=== PATIENT | female | born 1970 | race Caucasian/White ===

== ENCOUNTER 2020-05-13 11:37 | Emergency (ER) | payer OTHER, SELFPAY ==
[2020-05-13 11:37] VITALS: BP 112/73; PULSE 79; RESP 18; TEMP 36.9; O2SAT 100; BMI 27.3
--- NOTE | 2020-05-13 11:42 | NURSING ---
NO OLD EKGS
[2020-05-13 11:47] VITALS: BP 111/79; PULSE 85; RESP 18; TEMP 36.9; O2SAT 99
--- NOTE | 2020-05-13 11:56 | EKG12_ITS ---
Test Reason : CP Blood Pressure : / mmHG Vent. Rate : 085 BPM Atrial Rate : 085 BPM P-R Int : 132 ms QRS Dur : 072 ms QT Int : 398 ms P-R-T Axes : 033 -04 044 degrees QTc Int : 473 ms Normal sinus rhythm Normal ECG Confirmed by HUBER PABON, LUCY ([id number]), editor managing director MICHAEL SNOW ([id number]) on 05/16/2020 11:24:29 AM Referred By: LAURA Confirmed By:LUCY NGO MD
--- NOTE | 2020-05-13 11:58 | ED.DCSUM_ITS ---
History of Present Illness Chief Complaint: Chest Pain Informant: Patient Narrative: This is a 49-year-old female presenting for the evaluation of chest pain. Patient states her symptoms began out 3 days ago and have been constant. She notes some soreness to the chest and the left arm. She states at times it feels better. She denies any shortness of breath. She states that she has developed some nausea and vomiting this morning as well as diarrhea. states he is feeling well. No fevers. Denies any known cardiac history. She tells me that it seems that she just cannot relax. She is not noting any trauma or work that would have aggravated her chest wall. Past Medical History - Allergies and Home Meds Allergies/Adverse Reactions: Allergies No Known Allergies Allergy (Verified 05/13/20 11:44) Primary Care Physician: Alba Rubi MD [Primary Care Provider] - 1 Week Past Medical History: - - Depression anxiety hypothyroidism Surgical History: noncontributory Lives: Spouse/ Significant Other Smoking Status: Never smoker Drugs: None Review of Systems General: Denies: Chills, Fever, Sweats Eyes: Denies: Visual changes - bilaterally, Diplopia ENT: Denies: Rhinorrhea, Sore throat Cardiovascular: Reports: Chest pain. Denies: Palpitations Respiratory: Denies: Dyspnea, Cough, Dyspnea on exertion Gastrointestinal: Reports: Nausea, Vomiting, Diarrhea. Denies: Abdominal pain, Melena, Hematochezia Genitourinary: Denies: Dysuria, Hematuria, Frequency Musculoskeletal: Denies: Back pain, Extremity Pain Skin: Denies: Rash, Wounds Neurological: Denies: Headache, Weakness, Numbness Physical Exam Vital Signs/Narrative: Vital Signs Temp Pulse Resp BP Pulse Ox 05/13/20 11:47 98.5 F 85 18 111/79 99 05/13/20 11:37 98.5 F 79 18 112/73 100 Inital Vital Signs reviewed: Yes General: Well nourished, Well developed, No Acute Distress Head: Normocephalic, Atraumatic Eyes: Perrl, EOMI ENT: Moist mucous membranes, No rhinorrhea Neck: Supple, Nontender Cardiovascular: Regular rate, Regular rhythm, No murmurs Respiratory: No distress, CTA bilaterally, Chest tenderness Abdomen: Soft, Nontender, Nondistended, Normal bowel sounds Back: Nontender, Normal Inspection Extremities: Nontender, No edema Skin: Normal color, No rash Neurological: Alert, Oriented x3, Cranial nerves II-XII grossly intact, Normal Strength, Normal Sensation Psychological: - - Anxious Diagnostic/Tx/Re-eval Clinical Impression(s) from Imaging Studies Chest X-Ray 05/13/20 12:35 IMPRESSION: No active pulmonary disease. Calcific tendinitis of the right shoulder. Electronically Signed: Colby Zamora MD at 12:48 EST Tel , Service support , Laboratory Last Values WBC 6.8 K/mm3 (4.4-11.0) 05/13/20 11:40 RBC 4.84 M/mm3 (4.2-5.4) 05/13/20 11:40 Hgb 13.7 g/dL (12.0-15.0) 05/13/20 11:40 Hct 42.1 % (37-47) 05/13/20 11:40 MCV 87.0 fL (81-99) 05/13/20 11:40 MCH 28.3 pg (27.0-32.0) 05/13/20 11:40 MCHC 32.5 g/dL (32-36) 05/13/20 11:40 RDW Std Deviation 39.2 fl (35.1-43.9) 05/13/20 11:40 RDW Coeff of Rayne 12.3 % (11.6-14.6) 05/13/20 11:40 Plt Count 381 K/mm3 (150-450) 05/13/20 11:40 MPV 10.6 fl (6.2-12.0) 05/13/20 11:40 Immature Gran % (Auto) 0.300 % (0.0-0.9) 05/13/20 11:40 Neut % (Auto) 63.4 % (47-70) 05/13/20 11:40 Lymph % (Auto) 26.9 % (19-41) 05/13/20 11:40 Bullock % (Auto) 6.6 % (0-10) 05/13/20 11:40 Eos % (Auto) 1.6 % (0-5) 05/13/20 11:40 Baso % (Auto) 1.2 % (0-1) H 05/13/20 11:40 Absolute Neuts (auto) 4.3 X10^3/uL (2.0-7.7) 05/13/20 11:40 Absolute Lymphs (auto) 1.83 X10^3/uL (0.83-4.51) 05/13/20 11:40 Nucleated RBC % 0 % (0-5) 05/13/20 11:40 D-Dimer Quant (PE/DVT) <= 0.27 FEU/ug/m (0.27-0.49) 05/13/20 11:40 Sodium 139 mmol/L (136-145) 05/13/20 11:40 Potassium 4.0 mmol/L (3.5-5.1) 05/13/20 11:40 Chloride 104 mmol/L (98-107) 05/13/20 11:40 Carbon Dioxide 28.0 mmol/L (21.0-32.0) 05/13/20 11:40 Anion Gap 7 (5-15) 05/13/20 11:40 BUN 11 mg/dL (7-18) 05/13/20 11:40 Creatinine 0.72 mg/dL (0.55-1.02) 05/13/20 11:40 Estim Creat Clear Calc 69.75 ml/min 05/13/20 11:40 Est GFR (MDRD) Af Amer 110 mL/min (>60) 05/13/20 11:40 Est GFR (MDRD) Non-Af 91 mL/min (>60) 05/13/20 11:40 BUN/Creatinine Ratio 15.4 RATIO (10-20) 05/13/20 11:40 Glucose 105 mg/dL (74-106) 05/13/20 11:40 Calcium 9.9 mg/dL (8.5-10.1) 05/13/20 11:40 Total Bilirubin 0.30 mg/dL (0.20-1.00) 05/13/20 11:40 AST 15 U/L (15-37) 05/13/20 11:40 ALT 24 U/L (13-56) 05/13/20 11:40 Alkaline Phosphatase 91 U/L (45-117) 05/13/20 11:40 Troponin I < 0.015 ng/mL (<0.045) 05/13/20 11:40 Total Protein 7.8 g/dL (6.4-8.2) 05/13/20 11:40 Albumin 4.1 g/dL (3.2-5.0) 05/13/20 11:40 Globulin 3.7 g/dL (2.2-4.2) 05/13/20 11:40 Albumin/Globulin Ratio 1.1 RATIO (0.9-2.4) 05/13/20 11:40 Lipase 110 U/L (73-393) 05/13/20 11:40 - EKG Initial EKG Interpretation: Sinus Rhythm - EKG demonstrates normal sinus rhythm at a rate of 85 without - Medical Decision Making She received Zofran and Ativan and feels better. Troponin D-dimer negative. I think is more likely this is musculoskeletal chest pain given that the chest is tender. Also probably has a viral gastroenteritis given the vomiting and diarrhea. Her other labs are very reassuring. I will write for Zofran. Imodium for diarrhea. Return if worsening or concerns ED Disposition - Plan for ED Patient: Disposition: Home or Assisted Living Diagnosis: Chest pain, Vomiting and diarrhea, Anxiety Instructions: ED Chest Pain, Noncardiac, ED Vomiting and Diarrhea ... Prescriptions: Ondansetron [Zofran Odt] 4 mg PO Q6H PRN PRN #10 tab PRN Reason: Nausea Prescription Printed Referrals: Alba Rubi MD [Primary Care Provider] - 1 Week
[2020-05-13] MEDS: Ondansetron 4 MG/2 ML Vial IV (12:07)
[2020-05-13] MEDS: LORazepam 2 MG/ML Syringe 0.5 MG IV (12:07)
[2020-05-13 12:18] LABS: Absolute Lymphocyte Count 1.83 X10^3/uL (0.83-4.51); Absolute Neutrophil Count 4.3 X10^3/uL (2.0-7.7); Basophil# 0.08 X10^3/uL; Basophil% 1.2 % (0-1); Eosinophil# 0.11 X10^3/uL; Eosinophils% 1.6 % (0-5); Hematocrit 42.1 % (37-47); Hemoglobin 13.7 g/dL (12.0-15.0); Lymphocyte # 1.83 X10^3/ul (4.0); Lymphocyte % 26.9 % (19-41); Mean Corp Hgb Conc 32.5 g/dL (32-36); Mean Corpuscular Hgb 28.3 pg (27.0-32.0); Mean Platelet Vol. 10.6 fl (6.2-12.0); Monocyte# 0.45 X10^3/uL; Monocyte% 6.6 % (0-10); NRBC Flagged by Analyzer 0 % (0-5); Neutrophil # 4.31 X10^3/uL (2.7-7.7); Neutrophil % 63.4 % (47-70); Platelet Count 381 K/mm3 (150-450); RBC Distribution Width CV 12.3 % (11.6-14.6); RBC Distribution Width SD 39.2 fl (35.1-43.9); Red Blood Count 4.84 M/mm3 (4.2-5.4); White Blood Count 6.8 K/mm3 (4.4-11.0)
[2020-05-13 12:24] LABS: ALB/GLOB Ratio 1.1 RATIO (0.9-2.4); AST(SGOT) 15 U/L (15-37); Alanine Aminotransfer ALT/SGPT 24 U/L (13-56); Albumin, Serum 4.1 g/dL (3.2-5.0); Alkaline Phosphatase 91 U/L (45-117); Anion Gap 7 (5-15); BUN 11 mg/dL (7-18); BUN/Creat Ratio 15.4 RATIO (10-20); Calcium,Total 9.9 mg/dL (8.5-10.1); Chloride 104 mmol/L (98-107); Creatinine, Serum 0.72 mg/dL (0.55-1.02); EST Glomerular Filtration Rate 91 mL/min (>60); Est Glom Filt Rate - Afr Amer 110 mL/min (>60); Estimated Creatinine Clearance 69.75 ml/min; Globulin 3.7 g/dL (2.2-4.2); Glucose 105 mg/dL (74-106); Lipase 110 U/L (73-393); Protein, Total 7.8 g/dL (6.4-8.2); Sodium Level 139 mmol/L (136-145)
[2020-05-13 12:27] LABS: D-Dimer Quantitative (DVT/PE) <= 0.27 FEU/ug/m (0.27-0.49)
--- NOTE | 2020-05-13 12:35 | RAD_ITS ---
STUDY: X-RAY CHEST REASON FOR EXAM: Female, 49 years old. Left chest pain and shortness of breath. TECHNIQUE: Single AP portable view of the chest. COMPARISON: None. FINDINGS: The lungs are clear and expanded. There is no demonstrated pleural abnormality. Normal size heart. Normal mediastinum and victor manuel. Normal visualized pulmonary arteries. Normal visualized aortic arch and descending thoracic aorta. Normal visualized thoracic spine. Calcifications adjacent to the right humeral head consistent with calcific tendinitis. There is no demonstrated abnormality of the visualized soft tissue structures of the upper abdomen. RAD/Chest 1 View (Portable) IMPRESSION: No active pulmonary disease. Calcific tendinitis of the right shoulder. Electronically Signed: Colby Zamora MD at 12:48 EST Tel , Service support ,
[2020-05-13 12:37] VITALS: BP 109/70; PULSE 90; RESP 21; O2SAT 97
[2020-05-13 13:00] VITALS: BP 104/63; PULSE 67; RESP 19; O2SAT 96
[2020-05-13 13:33] VITALS: BP 101/66; PULSE 81; RESP 18; O2SAT 98
== END 2020-05-13 13:34 | disposition home or self-care (01) ==
PROVIDERS: Emergency Provider Emergency Medicine; PCP Internal Medicine
DX: R07.9 Chest pain, unspecified (principal); R11.10 Vomiting, unspecified; R19.7 Diarrhea, unspecified; F41.9 Anxiety disorder, unspecified; E03.9 Hypothyroidism, unspecified; F32.9 Major depressive disorder, single episode, unspecified; Z79.899 Other long term (current) drug therapy
CPT/HCPCS: 71045; 80053; 83690; 84484; 85025; 85379; 87426; 93005; 96374; 96375; 99284; A4216; J2405

== ENCOUNTER 2020-11-13 09:56 | Outpatient (RCR) | payer OTHER, SELFPAY ==
--- NOTE | 2020-11-13 09:00 | BH.SGPN.GN ---
Behaviors/Verbalizations/Mental Status: [] Eye contact is good. Motor activity is restless. Appearance is casual. Speech is Appropriate. Mood is anxious. Affect is congruent. Thoughts are linear and logical. No evidence of psychosis. Reviewed daily check in sheet and no reports of suicidal ideations or intent. Client Response/Progress/Benefit: [] Pt participated in group when prompted. Attentive. Daily symptom tracker notes 07/26 for anxiety and depression. Emotion for today is anxious and depressed. Shared that today is her first day in IOP. Her goal for the program is to decrease the impact of her depression and anxiety. She wants to feel better when she goes back to work. Group provided feedback and welcomed her to [facility] which was beneficial. No progress noted as this was her first session. Plan is to continue in [facility] to prevention decompensation, stabilize mood, and improve functioning so she can return to work. Narrative Note: []
--- NOTE | 2020-11-13 10:10 | BH.SGPN.GN ---
Behaviors/Verbalizations/Mental Status: []Client alert and oriented, casually dressed and groomed. Eye contact fair. Motor activity appropriate. Speech within normal limits. Affect constricted, mood anxious. Thoughts linear, logical, no signs of hallucinations or delusions. Client Response/Progress/Benefit: []Client receptive to session, participating throughout. Provided input as the group brainstormed the positive and negative aspects of stress on physical and mental health. Group did well to identify the benefits of stress as well as the impact of distress on performance and mental health. Client identified top stressors such as feeling overwhelmed at work, trying to keep house clean, and kids leaving for college. Client reports her stress jar is full and when it overflows client typically shuts down and sleeps. First day in IOP. Recommend to continue IOP tx to promote use of healthy coping skills, improve daily functioning and prevent decompensation.
--- NOTE | 2020-11-13 10:37 | BH.COMM ---
Communication Note - Communication with Client Communication Note: Met with pt to complete initial paperwork. No significant changes since pre-admission screening. Denies any current or history of suicidal ideation, denies any plan or intent. Denies any homicidal ideation, plan, or intent. Reports her family as protective factors. Completed [place] Suicide Screening with low risk. Future-oriented.
--- NOTE | 2020-11-13 10:39 | BH.PSA_ITS ---
Source of Information - Presenting Problems/Circumstances Problems, Referral Source, Mental Status, Client: The patient is a 50-year-old female with a history of depression, anxiety, and narcolepsy who was referred to the [facility] behavioral health IOP program by her outpatient psychiatrist secondary to worsening symptoms. Pt reports her symptoms began worsening in April 2020 and have continued decompensating for the past few months. Denies any trigger for increased symptoms. Psychiatric Presentation - Psych Issues & Need for Admission Psychiatric Issues:: anxiety, panic, depression Past Psychiatric History - Treatment Hx Treatment History: She has a psychiatrist for about 1 year now and she had a psychiatrist before that for over 10 years who recently retired and sent records to the new doctor. She also has a counselor at [facility]. She was first depressed after her second child over 20 years ago around age 30. She has had depression off and on since then. Her first psych meds were at age 34 for depression. First hospitalization:: denies Most recent hospitalization:: denies Medication Trials:: Yes - Prozac; Geodon; Xyrem; modafinil; dexmethylphenidate; pramipexole ECT Therapy:: No Age of first mental health symptoms: 18 due to post- depression Describe (age, circumstance, etc) any past hospitalizations: denies Current providers for mental health treatment (counselor, psychiatrist, business case analyst, etc.): Pt has a psychiatrist and outpatient counselor through the [facility] who she meets with regularly Development & Family of Origin - Family Who currently lives in your home?: Lives at home with her . She has two daughters who also live in the home during breaks from college Describe family composition:: Pt is the middle of three children. She has a sister 3 years older and a sister 3 years younger. She is closer to her younger sister. Pt's parents are . Pt has been twice. Once for 2 years when she was 18. again at 25 and has been 24 years - Family History Family Hx of Psychiatric or AOD Problems: Her mother has depression and anxiety but these have not been treated. No other mental health issues in the family. No suicides in the family. No substance issues in the family. Ethnicity - Culture Do you identify yourself with any particular cultural, ethnic background, or community?: No - Sexuality Sexual Orientation: Heterosexual Spirituality - Rastafari Do you currently identify with any organized tenriism?: Sikhism - Beliefs Is there a particular form of support from this community you can use for your recovery?: Yes Mental Status - Memory Recent Memory: Fair Remote Memory: Fair - Concentration Concentration: Fair - Eye Contact Eye Contact: Good - Speech Speech: Congruent, Soft - Thought Process Thought Process: Logical Insight: Fair Judgment: Fair Behavior: Anxious - Orientation Orientation: Time, Person, Place, Situation - Appearance Appearance: Neat/clean - Mood Mood: Anxious, Depressed - Affect Affect: Constricted Suicide Assessment - Suicidal Ideation Have you ever felt like hurting yourself?: No Were you using ETOH/drugs at the time?: No Suicidal Intentional Rating Scale (SIRS): No suicidal thoughts (past or present) Physician Notification: If Active suicidal thoughts/Will not contract for safety is checked, contact physician and document in the Physician Notification section below. Violent Behavior/Abuse History - Homicidal Ideation Do you have any homicidal thoughts? If so, explain:: No Is there a known potential victim? If yes, who:: No - Abuse Have you ever been abused?: No - Safety Do you ever feel threatened in your home? If yes, describe:: No Adult Social History - Age 16 to Present Describe your current support system:: Reports her parents and sister are good supports. Reports she has several coworkers she is close to and who are supportive Substance Use - Substance Substance Use Type: None Leisure/Social Activities - Interests What do you enjoy or might be interested in learning about?: Pt reports she does not have many hobbies and would be interested in finding activities she enjoys. 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 If yes, describe:: No - Court Orders Have you had any past court orders for psychiatric treatment?: No Do you have a present court order for psychiatric treatment?: No Problem Checklist - Current Problem Areas Problem List: Depressed mood/sad, Anxiety, Sleep problems, Pertinent health issues - narcolepsy Discharge Planning Needs - Anticipated Follow-Up Mental Health Center (Name/Phone Number):: [facility] psychiatry and outpatient counseling Family and Caregiver Contacts:: Release of Information Signed:: Yes Diagnoses - Diagnoses Diagnosis #1:: Major depressive disorder, recurrent, severe without psychosis Diagnosis #2:: Generalized anxiety disorder Diagnosis #3:: Narcolepsy Interpretive Summary - Interpretive Summary Interpretive Summary: The patient is a 50-year-old female with a history of depression, anxiety, and narcolepsy who was referred to the [facility] behavioral health IOP program by her outpatient psychiatrist secondary to worsening symptoms. Pt reports her symptoms began worsening in April 2020 and have continued decompensating for the past few months. Denies any trigger for increased symptoms. Pt reports symptoms have resulted in taking time off work, increased isolation, and limited ability to complete daily responsibilities. Reports having a hard time accomplishing her activities of daily living and feels overwhelmed by even simple tasks. Shared she ends up sleeping or ?laying around? for much of the day which results in increased guilt, rumination about what she needs to do, and increased negative thinking. Reports decreased ability to function at work resulting in taking FMLA beginning 1 week ago. Recommended ECT and TMS by outpatient provider, however pt declined both. Endorses feeling ?down? and sad, lack of energy and motivation, poor concentration, fatigue, loss of enjoyment in activities, poor appetite, loneliness and isolation. Additionally, reports increased rumination, easily becoming overwhelmed, guilt about not being at work, and daily panic attacks. Denies any SI/HI, plan, or intent. Denies self-harm, hallucinations, or delusions. Reports her parents and sister are supportive but that her is not as he does not ?understand? mental health. Treatment Plan Recommendations - Recommendations Guidelines: Special needs identified to be included in the development of an individualized treatment plan regarding past psychiatric history and treatment, developmental events, family relationships/events/culture, past and/or current educational, occupational, social, and residential experience, and legal status. Recommendations:: The patient will start the IOP program at [facility] as the structure, support, education, and group therapy will hopefully prevent worsening of the patient's symptoms which might require hospitalization.
--- NOTE | 2020-11-13 10:39 | BH.MTP ---
[facility] - Patient Information Program Physician:: Dr. Sindhu Rowley Primary Therapist:: KAYDEN Hernandez - Psychiatric Diagnoses Psychiatric Diagnoses:: 1. Major depressive disorder, recurrent, severe without psychosis. 2. Generalized anxiety disorder. 3. Narcolepsy Diagnosis Code(s):: F 33.2 - Estimated LOS Estimated LOS (in weeks):: 6 Problem/Goal #1 - Problem/Goal #1 Stated Goal:: Client will reduce depressive symptoms, anhedonia, low motivation, sadness, and low energy due to Major Depressive Disorder through Intensive Outpatient Program. Description of Barriers: Negative and distorted thoughts, unrealistic expectations, low motivation, limited supports, and limited insight could all be barriers to treatment. Functional Impact: The patient is a 50-year-old female with a history of depression, anxiety, and narcolepsy who was referred to the [facility] behavioral health IOP program by her outpatient psychiatrist secondary to worsening symptoms. Pt reports her symptoms began worsening in April 2020 and have continued decompensating for the past few months. Denies any trigger for increased symptoms. Pt reports symptoms have resulted in taking time off work, increased isolation, and limited ability to complete daily responsibilities. Reports having a hard time accomplishing her activities of daily living and feels overwhelmed by even simple tasks. Shared she ends up sleeping or ?laying around? for much of the day which results in increased guilt, rumination about what she needs to do, and increased negative thinking. Reports decreased ability to function at work resulting in taking FMLA beginning 1 week ago. Recommended ECT and TMS by outpatient provider, however pt declined both. Endorses feeling ?down? and sad, lack of energy and motivation, poor concentration, fatigue, loss of enjoyment in activities, poor appetite, loneliness and isolation. Additionally, reports increased rumination, easily becoming overwhelmed, guilt about not being at work, and daily panic attacks. Denies any SI/HI, plan, or intent. Denies self-harm, hallucinations, or delusions. Reports her parents and sister are supportive but that her is not as he does not ?understand? mental health. Goal Relevant Strengths/Supports: intelligent, familiar with mental health tx, willing to learn and try new treatment skills. - Objectives Objective #1 Stated Objective: Client will reduce isolation and increase engagement in activities she enjoys by engaging in at least one social activity per week. Interventions: Therapist will help client explore activities enjoys engaging in, explore barriers to engaging in these activities, and help connect client to those activities. Will provide psychoeducation on skills to improve engagement such as behavior activation, thought challenging, and opposite action. Discharge Criteria: Client will successfully report reduced isolation and increased engagement in at least one additional social activity per week. Target Date: 12/22/20 Review Date: 12/08/20 Objective #2 Stated Objective: Pt will decrease depressive symptoms AEB pt?s score on the DSM 5 cross-cutting measure and improve pt?s daily functioning. Interventions: Through groups and individual therapy, pt will be provided with education on healthy coping skills, cognitive distortions, mistaken beliefs, and identifying and combating negative self-talk. Therapist will assist pt with getting back into the activities she once enjoyed as well as increasing healthy coping strategies. Discharge Criteria: Pt will have met this goal when pt?s score on the DSM 5 cross cutting measure for depression has been decreased and per pt?s report daily functioning has improved Target Date: 12/22/20 Review Date: 12/08/20 Problem/Goal #2 - Problem/Goal #2 Stated Goal:: Stabilize anxiety levels and reduce racing thoughts which reinforce anxiety and panic, while increasing ability to function on daily basis. Description of Barriers: Negative and distorted thoughts, unrealistic expectations, low motivation, limited supports, and limited insight could all be barriers to treatment. Functional Impact: The patient is a 50-year-old female with a history of depression, anxiety, and narcolepsy who was referred to the [facility] behavioral health IOP program by her outpatient psychiatrist secondary to worsening symptoms. Pt reports her symptoms began worsening in April 2020 and have continued decompensating for the past few months. Denies any trigger for increased symptoms. Pt reports symptoms have resulted in taking time off work, increased isolation, and limited ability to complete daily responsibilities. Reports having a hard time accomplishing her activities of daily living and feels overwhelmed by even simple tasks. Shared she ends up sleeping or ?laying around? for much of the day which results in increased guilt, rumination about what she needs to do, and increased negative thinking. Reports decreased ability to function at work resulting in taking FMLA beginning 1 week ago. Recommended ECT and TMS by outpatient provider, however pt declined both. Endorses feeling ?down? and sad, lack of energy and motivation, poor concentration, fatigue, loss of enjoyment in activities, poor appetite, loneliness and isolation. Additionally, reports increased rumination, easily becoming overwhelmed, guilt about not being at work, and daily panic attacks. Denies any SI/HI, plan, or intent. Denies self-harm, hallucinations, or delusions. Reports her parents and sister are supportive but that her is not as he does not ?understand? mental health. Goal Relevant Strengths/Supports: intelligent, familiar with mental health tx, willing to learn and try new treatment skills. - Objectives Objective #1 Stated Objective: Client will learn and implement 2-3 calming skills to reduce overall anxiety and manage anxiety symptoms. Interventions: Therapist will teach client calming/relaxation skills and assign client homework which practices relaxation skills daily. Discharge Criteria: Client will have achieved this goal when can verbalize at least 2 calming skills and implement those skills successfully. Target Date: 12/22/20 Review Date: 12/08/20 Objective #2 Stated Objective: Pt will decrease anxious symptoms AEB pt?s score on the DSM 5 cross-cutting measure improve pt?s daily functioning. Interventions: Through groups and individual therapy, pt will be provided education about anxiety?s impact on body and common physiological reaction to anxiety. Therapist will teach pt appropriate breathing techniques and build healthy coping skills to manage daily anxieties. Aid client in identifying and challenging distorted thoughts that cause rumination and increased anxiety. Discharge Criteria: Pt will have met this goal when pt?s score on the DSM 5 cross cutting measure for anxiety has been decreased and per pt?s report daily functioning has improved. Target Date: 12/22/20 Review Date: 12/08/20
--- NOTE | 2020-11-13 11:15 | BH.SGPN.GN ---
Behaviors/Verbalizations/Mental Status: []Client alert and oriented, neat and casually dressed and groomed. Eye contact fair to good. Motor activity appropriate. Speech within normal limits. Affect congruent, mood anxious and depressed. Thoughts linear, logical, no signs of hallucinations or delusions. Client Response/Progress/Benefit: []Client first day in IOP tx, did well to remain engaged in session AEB listening attentively to others, as well as nodding and taking notes throughout discussion. Provided some input when prompted. Client was an active participant in challenge activity and did well to help group with [id number] problem solving. Client listened to other participants? ideas and communicated with the group throughout. Able to make connections between activity and stress management skills in daily life. Client remained attentive during discussion about the 4 A's of managing stress and nodded in connection with the various benefits of each. Shared wanting to work on the skill of adapting to improve her mindset and help her to begin moving forward with mental health treatment in a more active way. Client seemed to benefit from increased awareness of the impact of stress on mental health and increasing repertoire of stress management strategies. Will continue IOP tx to prevent decompensation, promote mood stability, as well as improve application of healthy coping skills. Narrative Note: []
--- NOTE | 2020-11-14 09:05 | BH.SGPN.GN ---
Behaviors/Verbalizations/Mental Status: [] Eye contact is good. Motor activity is appropriate. Appearance is casual. Speech is Appropriate. Mood is depressed/anxious. Affect is congruent. Thoughts are linear and logical. No evidence of psychosis. Reviewed daily check in sheet and no reports of suicidal ideations or intent. Client Response/Progress/Benefit: [] Pt participated when prompted. Attentive. Daily symptom tracker notes 07/26 for anxiety and depression. Emotions for today is gloomy. Continues to report significant depression, lack of motivation, and desire to lay down all day. Seeks reassurance from peers that mood will get better stating I don't think I will every feel better when peers provided positive feedback and support. Limited support reported. Isolating all day. Reports feeling very scared that depression will continue to control her life. Limited progress noted. Benefited from group support and encouragement. Will continue in IOP to maintain safety, prevent decompensation, and to improve functioning to return to work. Narrative Note: []
--- NOTE | 2020-11-14 10:10 | BH.SGPN.GN ---
Behaviors/Verbalizations/Mental Status: []Client alert and oriented, neatly dressed and groomed. Eye contact good. Motor activity appropriate. Speech within normal limits. Affect constricted, mood anxious and dysthymic. Thoughts linear, logical, no signs of hallucinations or delusions Client Response/Progress/Benefit: []Pt was an attentive participant and provided input during the activity. Attentive during psychoeducation and taking notes. Reflected connecting with topic of personal pitfalls and how they can impede mental health treatment progress. Pt and peers also discussed reasons why overcoming pitfalls is so challenging. During experiential activity pt along with peers identified several pitfalls from the activity that are also associated with mental health which included: lack of awareness, poor communication, wanting to give up, and emotional reactivity. Pt expressed ?it?s hard to know what to communicate? during the activity. Pt also expressed anxiety, but pt did well to stay present. Benefited from group by increasing awareness of pitfalls which can impact mental health. Pt will continue in IOP tx to prevent decompensation, improve overall functioning, and gain healthy support. Narrative Note: []
--- NOTE | 2020-11-14 11:10 | BH.SGPN.GN ---
Behaviors/Verbalizations/Mental Status: []Client alert and oriented, neat and casually dressed and groomed. Eye contact good. Motor activity appropriate. Speech within normal limits. Affect congruent, mood anxious and depressed. Thoughts linear, logical, no signs of hallucinations or delusions. Client Response/Progress/Benefit: []Client receptive of session, engaged throughout AEB client actively participating in challenge activity, as well as listening to discussion. Attentive throughout processing portions of session and expressed connecting to various pitfalls discussed by fellow participants. Client expressed feeling overwhelmed by reflecting on her own personal pitfalls as she has never taken time to look more closely at what her own barriers may be. Was receptive of and appeared to benefit from group support and encouragement. Group discussed different coping skills to help manage or prevent from falling into pitfalls. Client identified wanting to work on improving her mental health understanding. Appeared to benefit from identifying personal pitfalls and strategies to overcome these pitfalls. Will continue IOP tx to prevent decompensation, improve consistent application of healthy coping skills, and further promote mood stability. Narrative Note: []
--- NOTE | 2020-11-15 09:05 | BH.SGPN.GN ---
Behaviors/Verbalizations/Mental Status: [] Pt eye contact fair, casually dressed, motor activity restless, speech normal rate and tone, mood anxious, constricted affect, thoughts linear and intact, no evidence of delusions or hallucinations. Reviewed client?s symptom tracker, no signs of suicidal ideation, plan, or intent as of today. Client Response/Progress/Benefit: []Pt responded well to session AEB by listening to others and sharing thoughts and feelings. Pt stated she is feeling sluggish everyday. Pt stated she was unable to accomplish her goal yesterday of getting one load of laundry done. Pt reported she got home and sat down to relax. Pt stated she ended up sitting down the rest of the day relaxing instead of getting anything accomplished. Pt seemed to benefit from support from peers and normalization that the first week in IOP can be exhausting. Pt to continue IOP to decrease anxiety, improve daily functioning and prevent decompensation.
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
--- NOTE | 2020-11-15 11:20 | BH.SGPN.GN ---
Behaviors/Verbalizations/Mental Status: []Client alert and oriented, neatly dressed and groomed. Eye contact fair. Motor activity appropriate. Speech within normal limits. Affect constricted, mood dysthymic and anxious. Thoughts linear, logical, no signs of hallucinations or delusions. Client Response/Progress/Benefit: []Pt was engaged throughout AEB participating in discussion and taking notes. Pt was shaking during the activity, but provided feedback and stayed in the activity despite being anxious. Contributed as group brainstormed healthy coping skills for better managing anger which included: deep breathing, counting, exercise, DDD, and taking walks. Pt also gained awareness of costs of unmanaged anger. Pt appeared to benefit from identifying different techniques to manage anger as well as gaining awareness of the costs of anger. Pt selected DDD and STOPP to better manage anger. Will continue IOP tx to prevent decompensation, learn healthy coping skills, and improve daily functioning. Narrative Note: []
[2020-11-15 11:41] VITALS: BP 128/79; PULSE 78
--- NOTE | 2020-11-15 12:24 | BH.PSY.EVA_ITS ---
Psychiatric Evaluation Initial Evaluation Initial Evaluation: Chief Complaint: [] I want to lay around and doing nothing. History of Present Illness: [] The patient is a 50-year-old female with a history of depression, anxiety and narcolepsy who was referred to the [facility] behavioral health IOP program by her outpatient psychiatrist secondary to worsening symptoms. Her symptoms began in April 2020 and she has been decompensating even further for the past few months. She is not aware of any trigger for the symptoms. She currently lives with her in a house and her 21 and 19-year-old daughters were living there but recently her going back to college and now. She has been for 24 years and describes her marriage as okay. She states that her is not very supportive as he does not understand what is wrong with her. Patient is having a hard time accomplishing her activities of daily living and feels overwhelmed by even simple tasks. She has a lot of negative ruminating and anxious thinking. She is currently on FMLA from her job of 30 years at the [employer]. She last worked 1 week ago. Her doctor has recommended and given her the option of trying ECT and TMS but the patient has refused these. For primary support she has her parents and her sister. She endorses feeling down and sad. She denies hopelessness, and worthlessness. She feels some guilt that she is not doing well and is unable to work. She denies any history of self-harm. She has very low motivation and has been isolating herself. She is not enjoying anything she does. Her appetite is decreased and her weight has may be lost a few pounds. She wants to sleep all the time and she sometimes naps all day and then sleeps all night also. Her energy level is low during the day and her concentration is decreased. She denies thoughts of , thoughts of self-harm, suicidal ideation, plan for suicide, homicidal ideation, hallucinations, delusions or symptoms of lise. She is a worrier by nature and she is having about 2 panic attacks a day lately. She denies any OCD, eating disorder, trauma or PTSD. She has had a sleep study and has a neurologist who treats her narcolepsy. Current Psychiatric Medications: [] Prozac 100 mg daily (dose increased 2 weeks ago); Geodon 20 mg p.o. daily (she is weaning off this now by her outpatient psychiatrist); for narcolepsy the patient is on: Xyrem 500 mg nightly; modafinil 200 mg every morning; dexmethylphenidate 10 mg p.o. 4 times daily. For restless leg syndrome the patient is on pramipexole 0.125 mg p.o. nightly Past Psychiatric History: [] The patient has no prior psychiatric admissions. No suicide attempts ever. She has a psychiatrist for about 1 year now and she had a psychiatrist before that for over 10 years who recently retired and sent records to the new doctor. She also has a counselor at [facility]. She was first depressed after her second child over 20 years ago around age 30. She has had depression off and on since then. Her first psych meds were at age 34 for depression. She has never had ECT or TMS. Her past mental medications include a lot but she only remembers Zoloft. She says there are many others and her outpatient psychiatrist is aware of these. She has had counseling in the past off and on and it has helped her sometimes but not always. Substance Use History: [] No marijuana use. Non-smoker. No vaping. No drugs. No alcohol use. No rehab ever. Allergies: [] No known allergies Medications: [] Levothyroxine, vitamin C, multivitamin plus psych meds as dictated above. Past Medical History: [] Hypothyroidism, restless leg syndrome, narcolepsy. She had a bilateral tubal ligation years ago but no other surgeries. She has been postmenopausal for 2 years now and has not had any bleeding recently. She is a 2 para 2 Ab0 female who had 2 spontaneous vaginal deliveries and has 2 living daughters. Family Psychiatric History: [] Mother is 75 and father is 78 years old and they are healthy except father has high blood pressure. Her mother has depression and anxiety but these have not been treated. No other mental health issues in the family. No suicides in the family. No substance issues in the family. Personal/Social History: [] She was born and raised in [place] and describes her childhood as my parents were loving but not demonstrative. She denies any physical, verbal or sexual abuse ever. She has 1 sister 3 years older and 1 sister 3 years younger and she is close to her younger sister. School was hard for her and she had to work hard but she graduated high school. She went to college and got a BA in social work. She got for the first time at age 18 and the marriage only lasted 2 years. There was no abuse in the marriage and no children. The patient got for the second time at age 25 and this marriage has lasted 24 years. The patient states that he does not understand what I am going through and she feels he is not supportive. There is no abuse in the marriage. Her is 56 years old and works full-time and this is his first marriage. She has 2 daughters who recently left for college and are ages 19 and 21. Legal History: [] No arrests. No snf. No DUIs. 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 Review of Systems: [] Negative except for sleepiness and fatigue due to narcolepsy and occasional restless leg symptoms. Vital Signs: [] Reviewed in nurses notes. Mental Status Examination: [] The patient is a 50-year-old female who is normal for stated age and is seen wearing a mask due to the pandemic. She is casually dressed and groomed with good hygiene. She has no psychomotor agitation or retardation. She is cooperative during the interview. Eye contact is good to fair and speech is normal rate and rhythm and fluent with no pressure. Mood is depressed. Affect is constricted. Thought process is goal-directed and organized. Thought content: There is no evidence of passive thoughts of , suicidal ideation, plan for suicide, homicidal ideation, hallucinations or delusions. The patient is concerned and preoccupied with the fact that she just wants to lay around and sleep. Reality testing is intact. Intelligence is average. Judgment is intact. Insight: Limited. Diagnoses: [] 1. Major depressive disorder, recurrent, severe without psychosis 2. Generalized anxiety disorder 3. Narcolepsy 4. Restless leg syndrome 5. Primary support (marital) issues and work issues Plan: [] The patient will start the IOP program at [facility] as the structure, support, education, and group therapy will hopefully prevent worsening of the patient's symptoms which might require hospitalization. She felt safe during the interview and if it anytime she does not feel safe she will let us know or go to the emergency room. The risk, options, possible complications and side effects of the medications were discussed with the patient and she understands and accepts these. The patient saw her outpatient psychiatrist 2 weeks ago and sees them once a month. No medication changes were made today. The patient is encouraged to try to exercise by walking because she used to enjoy walking her dog but does not anymore. The patient agrees to try to go for very short walks at first and slowly increase her activity level if possible. She will continue to follow-up with her outpatient providers and I will see the patient in follow-up in 1 to 2 weeks.
--- NOTE | 2020-11-15 12:37 | BH.DR.ITP ---
Initial Treatment Plan Patient Information Visit Information: ADMISSION DATE: EXPECTED LOS: 4-6 weeks Problems/Symptoms Problem #1:: Depression Symptom:: Sadness, guilt, low motivation, anhedonia, decreased appetite, hypersomnia, low energy, decreased concentration Problem #2:: Anxiety Symptom:: Worry, rumination, panic attacks
--- NOTE | 2020-11-21 09:00 | BH.SGPN.GN ---
This psychotherapy group was provided via telehealth using two-way, real-time interactive telecommunication technology between the clients and the provider. The interactive telecommunication technology included audio and video. The client was offered telemedicine as an option for care delivery during the COVID-19 pandemic and consented to this option. Client location: [place] Provider located at [facility] Behaviors/Verbalizations/Mental Status: []Client alert and oriented, casually dressed and groomed. Eye contact good. Motor activity appropriate. Speech within normal limits. Affect flat, mood depressed. Thoughts linear, logical, no signs of hallucinations or delusions. Reviewed client?s symptom tracker, no risk for suicidal ideation, plan, or intent as of 11/21/20 Client Response/Progress/Benefit: []Client responded well to session, using telehealth today due to client's recent COVID diagnosis. Client states she is currently feeling not hopeful as client shared I had a plan to get my mental health on track and COVID threw a wrench in my plan. Client shared because of her fatigue, lack of energy, and lack of motivation for being sick, client is feeling more depressed. Group provided emotional support and therapist encouraged client to combat distortions that could reinforce depressive symptoms. Client struggled to identify any mental health wins, but eventually acknowledged she showered and changed her clothes today which took a lot of mental and physical energy. Appeared to benefit from group support and thought challenging. Will continue IOP tx to prevent decompensation, improve functioning, and combat distorted thought patterns. Narrative Note: []
--- NOTE | 2020-11-21 10:10 | BH.SGPN.GN ---
Behaviors/Verbalizations/Mental Status: [] Eye contact is good. Motor activity is appropriate. Appearance is casual. Speech is Appropriate. Mood is depressed. Affect is flat.. Thoughts are linear and logical. No evidence of psychosis. Client Response/Progress/Benefit: [] Pt participated at times during group discussions. Attentive during psychoeducation on communication styles (Passive, Passive-Aggressive, Aggressive, and Assertive) and benefits/disadvantages to each style. Along with peers pt participated in providing insight into the benefits to effective communication on mental health which included; helps us get needs met, resolves problems, improves relationships, increases clarity, clears ups expectations, decreases stress, and increases productivity. Pt along with peers able to identify ways that communication can be misinterpreted through tone, texting, body language and assumptions. Pt identified her most frequently used communication style as passive-aggressive. Benefited from increased awareness of different communication styles and the importance of communicating effectively to improve mental wellness. Will continue in IOP to prevent decompensation, increase healthy coping, and improve functioning to return to work. Narrative Note: []
--- NOTE | 2020-11-21 11:15 | BH.SGPN.GN ---
This psychotherapy group was provided via telehealth using two-way, real-time interactive telecommunication technology between the patients and the provider. The interactive telecommunication technology included audio and video. The patient was offered telemedicine as an option for care delivery during the COVID-19 pandemic and consented to this option. Patient location: [place] Provider located at [facility] Behaviors/Verbalizations/Mental Status: []Client alert and oriented, casually dressed and appropriately groomed. Eye contact good. Motor activity appropriate. Speech WNL. Affect congruent, mood depressed and anxious. Thoughts linear, logical, no signs of hallucinations or delusions. Client Response/Progress/Benefit: []Client responded well to session AEB listening attentively to others, taking notes, and providing input during group discussion. Client contributed increased input throughout session than she has in prior groups. Identified the importance of reminding yourself of the goal for what you are trying to communicate when entering an important or difficult conversation. Attentive during psychoeducation on interpersonal DBT skill NICK and client selected a communication skill to practice. Client stated that she struggles with being assertive in her communication and would like to work on developing more assertive communication in the workplace. Client selected wanting to practice asserting her needs more but is anxious about taking steps in doing so. Responded well to group support and encouragement. Client seemed to benefit from increasing awareness of healthy strategies to improve communication. Will continue IOP tx to maintain gains, increase healthy coping and begin breaking maintenance cycles, as well as prevent decompensation. Narrative Note: []
== END 2020-11-21 23:59 ==
LOC: BHIOP 09:56
PROVIDERS: PCP Internal Medicine; Visit Provider Psychiatry & Neurology Psychiatry
DX: F33.2 Major depressive disorder, recurrent severe without psychotic features (principal); F41.1 Generalized anxiety disorder; G47.419 Narcolepsy without cataplexy; G25.81 Restless legs syndrome; Z79.899 Other long term (current) drug therapy; E03.9 Hypothyroidism, unspecified; Z78.0 Asymptomatic menopausal state
CPT/HCPCS: S9480; 90832; 90853

== ENCOUNTER 2020-11-22 08:24 | Outpatient (RCR) | payer OTHER, SELFPAY ==
[2020-11-22 00:45] VITALS: BP 128/79; PULSE 78
--- NOTE | 2020-11-22 10:10 | BH.SGPN.GN ---
Behaviors/Verbalizations/Mental Status: [] Eye contact is good. Motor activity is appropriate. Appearance is discheveld. Speech is Appropriate. Mood is anxious. Affect is congruent. Thoughts are linear and logical. No evidence of psychosis. Client Response/Progress/Benefit: [] Pt participated at times during group discussion and activity. Attentive during psychoeducation on coping skills. Pt along with peers worked together to identify unhealthy coping skills such as; avoidance, sleep, substances, isolation, shopping, self-sabotage, not taking prescribed medications, and self-harm. Group was able to identify why people use unhealthy coping skills such as; easy, comfortable, work in the short-term, perceive them as quick fix, and its harder to use healthy coping skills. Pt was able to make connection between the activity (tower building) and the importance of having a strong base/foundation of both internal and external coping skills. Benefited from increased understanding of unhealthy coping skills and the need for developing healthy interna and external coping skills. Pt will continue in IOP maintain safety, prevent decompensation, and to improve functioning to return to work. Narrative Note: [] This psychotherapy group was provided via telehealth using two-way, real-time interactive telecommunication technology between the patients and the provider. The interactive telecommunication technology included audio and video. The patient was offered telemedicine as an option for care delivery during the COVID-19 pandemic and consented to this option. Patient location: [place] Provider located at [facility]
--- NOTE | 2020-11-22 11:10 | BH.SGPN.GN ---
This psychotherapy group was provided via telehealth using two-way, real-time interactive telecommunication technology between the clients and the provider. The interactive telecommunication technology included audio and video. The client was offered telemedicine as an option for care delivery during the COVID-19 pandemic and consented to this option. Client location: [place] Provider located at [facility] Behaviors/Verbalizations/Mental Status: []Client alert and oriented, casually dressed and groomed. Eye contact good. Motor activity appropriate. Speech within normal limits. Affect constricted, mood depressed. Thoughts linear, logical, no signs of hallucinations or delusions. Client Response/Progress/Benefit: []Client responded well to session, taking notes, but quiet unless prompted. Group discussed the different categories of coping skills which included distraction, emotional release, grounding, self-love, and thought challenging. Client participated in creating a coping skills ?menu? from the different categories of coping skills. Client's coping skill menu included: earthing, journaling mental health wins, showering, and taking walks. Client continues to struggle with lack of motivation which has worsened due to illness. Appeared to benefit from increasing repertoire of healthy coping skills. Will continue tx to prevent decompensation, improve overall functioning, and increase motivation. Narrative Note: []
--- NOTE | 2020-11-22 15:07 | BH.MDN_ITS ---
Multi-Disciplinary Note - Note 45-min Individual Time Started:: 09:00 Date: 11/22/20 Purpose of session/treatment goals addressed:: Met with pt to review current symptoms and progress in IOP Eye Contact:: Good Motor Activity:: Appropriate Appearance:: Disheveled Speech:: Appropriate Mood:: Anxious, Depressed Affect:: Congruent Thoughts:: Linear, Logical, No evidence of hallucinations/delusions noted Staff Interventions:: CBT techniques, mindfulness skills, rapport building, strengths perspective, taught coping skills Client Response:: Pt reports that she continues to have significant anxiety and depression daily. Reports on average 2 panic attacks daily. Uncertain if medications are helpful. She denies any suicidal ideations, plan, or intent. Denies thoughts of . 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 She talked at length regarding distress related to work which is primarily centered on division road supervisor. Overall she reports that she enjoys her co-workers and doesn't mind the actual job and its responsibilities. Believes that her division road supervisor is judgmental and doesn't like the quality of work that I'm doing. Reports that her division road supervisor has stated can you even do this job anymore? and has suggested that due to her mental health she should take a job with less responsibilities. Pt also reports that her division road supervisor has told her that she asks to many questions and that certain work is not up to standards. Anxiety related to walking on eggshells and not knowing when she will be confronted about her performance. Pt also believes that division road supervisor blames her struggles at work on her depression and anxiety. Pt also reports limited support at home from her . Continues to have negative thoughts will anything work for my depression? Will I ever get better. Challenged on what that looks like and her struggles with taking action on her mental illness. Risks/Concerns:: No risks or concerns noted. Progress Toward Goals/Plan:: Limited progress noted. Fatigue and illness related to recent COVID diagnosis has been obstacle to progress as well. She reports that she has showered for the past 2 days which is progress. Also reports no thoughts about or suicide. As her work and struggles with division road supervisor are significant stressor she was asked to answer the questions What do I want out of a division road supervisor? and What would I like to change with my division road supervisor? Responded well to discussion on taking action with mental health symptoms rather than relying on immediate gratification through sleeping or avoiding. Education on the importance of identifying distress earlier and trying skills before panic attacks occurs. Identifying negative thoughts and cognitive distortions and trying to reframe or challenge. She responded well to this. Will continue in IOP to maintain safety, increase health coping, and improve functioning to return to work. Time Stopped:: 09:45
--- NOTE | 2020-11-23 09:10 | BH.SGPN.GN ---
Behaviors/Verbalizations/Mental Status: [] Eye contact is good. Motor activity is appropriate. Appearance is casual. Speech is Appropriate. Mood is anxious. Affect is congruent. Thoughts are linear and logical. No evidence of psychosis. Reviewed daily check in sheet and no reports of suicidal ideations or intent. Client Response/Progress/Benefit: [] Pt participated when prompted. Attentive. Did not provided feedback to peers. Emotion for today is excited. Mental health win is that she has taken a shower for 3 days in a row. She elaborated on why this is s significant mental health win as well as what has helped her accomplish this goal. She is more active around the house and is completing tasks. Progress noted per pt report. Benefited from group support, encouragement, and feedback. Will continue in IOP to maintain safety, increase functioning to return to work. Narrative Note: []
--- NOTE | 2020-11-23 10:10 | BH.SGPN.GN ---
This psychotherapy group was provided via telehealth using two-way, real-time interactive telecommunication technology between the clients and the provider. The interactive telecommunication technology included audio and video. The client was offered telemedicine as an option for care delivery during the COVID-19 pandemic and consented to this option. Client location: [place] Provider located at [facility] Behaviors/Verbalizations/Mental Status: []Eye contact is good. Motor activity is appropriate. Appearance is casual. Speech is Appropriate. Mood is dysthymic. Affect is constricted. Thoughts are linear and logical. No evidence of psychosis. Client Response/Progress/Benefit: []Pt participated at times during group discussion, often nodding during discussion. Active during group activity. Attentive during psychoeducation. Pt provided insight and feedback during group discussion on how social supports can be similar to a safety net, the importance of social supports, benefits of social supports, and how strong or poor social supports impact our mental health. Worked well with peers in experiential activity and provided ideas despite being on telehealth. Benefited from increased awareness of the benefits of social support and the importance of maintain a balanced support system. Pt has been on telehealth this week due to recent COVID diagnosis. Pt reports this has been impacting her motivation and energy, but she has showered multiple days in a row which is progress. Will continue IOP tx to prevent decompensation, learn healthy coping skills, and improve daily functioning. Narrative Note: []
--- NOTE | 2020-11-23 11:11 | BH.SGPN.GN ---
This psychotherapy group was provided via telehealth using two-way, real-time interactive telecommunication technology between the patients and the provider. The interactive telecommunication technology included audio and video. The patient was offered telemedicine as an option for care delivery during the COVID-19 pandemic and consented to this option. Patient location: [place] Provider located at [facility] Behaviors/Verbalizations/Mental Status: []Client alert and oriented, neat and casually dressed and groomed. Eye contact good. Motor activity appropriate. Speech within normal limits, soft. Affect congruent, mood anxious and euthymic. Thoughts linear, logical, no signs of hallucinations or delusions. Client Response/Progress/Benefit: []Client an active participant throughout AEB contributing to discussion and taking notes. Client participated in the group activity highlighting the various barriers to effectively utilizing supports and strategies for improving support. Did well to take on an role via providing supportive encouragement despite attending via telehealth. Participated in discussion on the 5 ways our supports can support us (emotional, tangible, affirmational, network/belonging, and instructional) and the group listed examples for all types. Client reports wanting to work on increasing network/belonging support as client feels this will help her feel less isolated, emotionally validated, and more willing to open-up about her own mental health. Client plans to do this by making more of an effort to actively engage in IOP tx as well as identify potential support groups/organizations to get involved with post IOP completion. Client seemed to benefit from identifying the type of support and how this support will aid in promoting overall mental wellness. Will continue IOP tx to prevent decompensation, continue to promote mood stability, and improve daily functioning. Narrative Note: []
--- NOTE | 2020-11-28 10:06 | BH.SGPN.GN ---
This psychotherapy group was provided via telehealth using two-way, real-time interactive telecommunication technology between the patients and the provider. The interactive telecommunication technology included audio and video. The patient was offered telemedicine as an option for care delivery during the COVID-19 pandemic and consented to this option. Patient location: [place] Provider located at [facility] Behaviors/Verbalizations/Mental Status: []Client alert and oriented, casually dressed and groomed. Eye contact fair to good. Motor activity appropriate. Speech within normal limits. Affect congruent, mood anxious and depressed. Thoughts linear, logical, no signs of hallucinations or delusions. Client Response/Progress/Benefit: [] Pt was well engaged in group AEB taking notes and listening attentively throughout. Attentive during psychoeducation and discussed the importance of goal-setting with the group. Pt indicated ?Goals give you something you?ve accomplished which can help you to feel better?. Group identified potential benefits of having goals include: they motivate, increase self-esteem, and are needed to have progress, give a sense of accomplishment, and provide a sense of purpose. Group also worked together to identify barriers to goal-setting which included; negative self-talk, lack of motivation, unrealistic expectations, and procrastination. Pt identified personal barrier as lack of motivation. Shared that ?goals are not easy. You have to really work at them which can be hard to do?. Benefited from increased awareness of benefits and barriers to goal-setting. Pt will continue in IOP to prevent decompensation, reduce depressive sx and improve anxiety management, as well as create small goals to improve daily functioning and return to work. Narrative Note: []
--- NOTE | 2020-11-28 11:15 | BH.SGPN.GN ---
Behaviors/Verbalizations/Mental Status: []Client alert and oriented, casually dressed and groomed. Eye contact good. Motor activity appropriate. Speech within normal limits. Affect congruent, mood euthymic. Thoughts linear, logical, no signs of hallucinations or delusions. Client Response/Progress/Benefit: []Pt was an active participant in group discussions and activities. Engaged in activity. Pt identified a SMART goal for the next week is to shower every morning. Pt reported this would benefit her mental health by starting off her day with a positive and feeling more refreshed. Identified depression, low motivation and apathy as potential barriers to accomplishing goal. With therapist assistance pt able to identify several solutions that can help overcome identified barriers. Benefited from group by being able to utilize SMART educate to create a goal. Pt to continue IOP to increase healthy coping, challenge negative thoughts and prevent decompensation. Narrative Note: []
--- NOTE | 2020-11-28 14:43 | BH.MDN ---
Multi-Disciplinary Note - Note 30-min Individual Time Started:: 09:37 Date: 11/28/20 Purpose of session/treatment goals addressed:: Met with pt to review current symptoms and progress in IOP. Additionally, addressed treatment goals 1 & 2. Eye Contact:: Good Motor Activity:: Appropriate Appearance:: Neat, Casual Speech:: Appropriate Mood:: Anxious, Depressed Affect:: Congruent Thoughts:: Linear, Logical, No evidence of hallucinations/delusions noted Staff Interventions:: thought challenging - aided client in identifying and challenging distortion of disqualifying positives., psychoeducation on: - cycle of depression, relationship between anxiety and depression, opposite action, CBT techniques, goal setting - accomplishment log, exercise via dog walking, taught coping skills - deep breathing, 5 senses Risks/Concerns:: No risks or concerns noted, denies any SI as of this date. Future oriented and protective factors noted. Time Stopped:: 09:37
--- NOTE | 2020-11-29 08:57 | BH.SGPN.GN ---
This psychotherapy group was provided via telehealth using two-way, real-time interactive telecommunication technology between the patients and the provider. The interactive telecommunication technology included audio and video. The patient was offered telemedicine as an option for care delivery during the COVID-19 pandemic and consented to this option. Patient location: [place] Provider located at [facility] Behaviors/Verbalizations/Mental Status: []Client alert and oriented, casually dressed and groomed. Eye contact fair to good, at times stepping off camera. Motor activity appropriate. Speech within normal limits. Affect congruent, mood depressed, anxious. Thoughts linear, logical, no signs of hallucinations or delusions. Reviewed client?s symptom tracker, no risk for suicidal ideation, plan, or intent as of 11/29/20 Client Response/Progress/Benefit: []Client responded well to session, mostly attentive though at time walking off camera due to anxiety or becoming distracted by environment. Overall engaged and willing to process with group. Client reports feeling ?anxious? today and indicated she is unsure as to why. Expressed no new triggers or stressors. Receptive of supportive feedback and suggestions provided by the group. Noted that she has been trying to practice deep breathing skills but has not yet tried anything else. Indicates willingness to try walking outside to change the environment and practicing the 5-senses to help calm herself prior to next group. Did well to identify small areas of progress which included completing several small tasks around the house and spending less time lying on the couch. Noted this is progress as she has been spending a large portion of each day ?laying around?. Continues to struggle with consistency in skill application. Recommended continued IOP tx to further promote healthy depression management and small goal setting, reduce anxiety, and begin work on client transition back to work. Narrative Note: []
--- NOTE | 2020-11-29 10:10 | BH.SGPN.GN ---
Behaviors/Verbalizations/Mental Status: [] Eye contact is good. Motor activity is appropriate. Appearance is casual. Speech is Appropriate. Mood is depressed. Affect is flat. Thoughts are linear and logical. No evidence of psychosis. Client Response/Progress/Benefit: [] Pt was an active participant in group discussions. Attentive during psychoeducation. Pt along with peers added their perspective on the definition of stigma as it relates to mental health. Pt participated in interactive group discussion on the topic. Pt along with peer identified how stigma can impact one which included; keeps one more depressed, keeps one from recognizing or addressing mental health, keeps us with showing and being honest about our emotions, keeps one from opportunities, can keep one from social and interacting with friends/family, etc, can impact relationships, and can keep one from seeking help for fear of being labeled.Benefited from increased awareness of mental health stigma and how it could impact patient. Will continue in IOP to maintain safety, prevent decompensation, and improve functioning to return to work. Narrative Note: []
--- NOTE | 2020-11-29 11:15 | BH.SGPN.GN ---
This psychotherapy group was provided via telehealth using two-way, real-time interactive telecommunication technology between the patients and the provider. The interactive telecommunication technology included audio and video. The patient was offered telemedicine as an option for care delivery during the COVID-19 pandemic and consented to this option. Patient location: [place] Provider located at [facility] Behaviors/Verbalizations/Mental Status: []Client alert and oriented, casually dressed, hygiene appeared to be tended to. Eye contact poor. Motor activity appropriate. Speech within normal limits. Affect constricted, mood anxious. Thoughts linear, logical, no signs of hallucinations or delusions. Client Response/Progress/Benefit: []Client engaged participant AEB pt provided some input during small group discussion, taking notes and listening attentively to others. Group brainstormed strategies to combat social and perceived stigma which included: educating others, no longer using negative language about mental illness, being open about mental health, and not reinforcing stigma with behaviors or labels. Client stated she made efforts to combat mental health stigma by being open to her workplace that she is taking time off work for her mental health. Reported she can continue to talk about mental health as a way to combat stigma. Appeared to benefit from increasing awareness of strategies to combat stigma. Will continue IOP tx to continue use of healthy coping, improve daily functioning and prevent decompensation. Narrative Note: []
--- NOTE | 2020-11-30 09:05 | BH.SGPN.GN ---
Behaviors/Verbalizations/Mental Status: [] Eye contact is good. Motor activity is appropriate. Appearance is casual. Speech is Appropriate. Mood is depressed. Affect is flat. Thoughts are linear and logical. No evidence of psychosis. Reviewed daily check in sheet and no reports of suicidal ideations or intent. Client Response/Progress/Benefit: [] Pt participated when prompted. Attentive. Emotion for today is perplexed. Mental health wins include Getting out of the house yesterday and showering this AM. She continues to report panic attacks throughout the day with no apparent triggers. Ruminating on returning to her job as well as numerous other stressors. Unable to identify any ways to challenge, reframe, or accept negative automatic thoughts. Limited progress noted. Benefited from group support, encouragement, and feedback. Will continue in IOP to maintain safety, increase healthy coping, and to improve functioning to return to work. Narrative Note: []
--- NOTE | 2020-11-30 11:12 | BH.SGPN.GN ---
Behaviors/Verbalizations/Mental Status: []Client alert and oriented, casually dressed and appropriately groomed. Eye contact fair. Motor activity appropriate. Speech within normal limits. Affect constricted, mood anxious. Thoughts linear, logical, no signs of hallucinations or delusions. Client Response/Progress/Benefit: []Client passive participant AEB providing limited input, however did appear to listen attentively to others. Connected with group topic of perspective and the impacts of one?s perspective on mental health. Client worked with the group to identify impact of a negative perspective which included: all or nothing thinking, increased negative self-talk, and hurts relationships. Client appeared to benefit from increasing understanding of mental health benefits of a positive perspective and potential consequences to progress when perspective is negative. Client is to continue IOP to improve daily functioning, increase healthy coping and prevent decompensation. Narrative Note: []
--- NOTE | 2020-11-30 11:16 | BH.SGPN.GN ---
This psychotherapy group was provided via telehealth using two-way, real-time interactive telecommunication technology between the patients and the provider. The interactive telecommunication technology included audio and video. The patient was offered telemedicine as an option for care delivery during the COVID-19 pandemic and consented to this option. Patient location: [place] Provider located at [facility] Behaviors/Verbalizations/Mental Status: []Client alert and oriented, casually dressed and groomed. Eye contact fair to good. Motor activity appropriate. Speech within normal limits, quiet. Affect congruent, mood depressed and anxious. Thoughts linear, logical, no signs of hallucinations or delusions. Client Response/Progress/Benefit: []Pt did well to remain attentive and engaged throughout, provided limited input though taking notes and nodding throughout. Reported connecting with discussion reviewing benefits of recognizing personal strengths and importance of taking a strengths-based approach in addressing stressors and managing mental health symptoms. Expressed struggling with unrealistic expectations and self-comparison which has resulted in not recognizing personal strengths in the past. Pt completed strengths exploration worksheet and identified personal strengths to include: kindness, sense of humor, love, and common sense. Shared wanting to focus on fostering personal strength of enthusiasm by allowing herself to get excited about things she is looking forward to or that she enjoys. Benefited from identifying personal strengths and strategies for enhancing use of identified strengths. Pt to continue IOP tx to further improve mood stability, reduce distorted thoughts reinforcing anxiety, and improve healthy coping. Narrative Note: []
--- NOTE | 2020-12-01 09:10 | BH.SGPN.GN ---
Behaviors/Verbalizations/Mental Status: [] Eye contact is good. Motor activity is appropriate. Appearance is casual. Speech is Appropriate. Mood is depressed. Affect is flat. Thoughts are linear and logical. No evidence of psychosis. Reviewed daily check in sheet and no reports of suicidal ideations or intent. Client Response/Progress/Benefit: [] Pt participated when prompted. Attentive. Emotion for today is anxiety. Mental health wins reported to be increase energy and motivation yesterday which she has not had for several months. Shared that she cleaned out her car and worked outside around the house. Feels accomplished. States this AM she is feeling anxious and restless. Already beginning to discount her positives from yesterday and predicting that today will be bad. Group pointed out that she felt anxious and depressed yesterday AM and was able to accomplish quite a bit challenging her thoughts and perspectives. Progress noted per pt report. Benefited from group feedback and challenging. Will continue in IOP to prevent decompensation and improve functioning to return to work. Narrative Note: [] This psychotherapy group was provided via telehealth using two-way, real-time interactive telecommunication technology between the patients and the provider. The interactive telecommunication technology included audio and video. The patient was offered telemedicine as an option for care delivery during the COVID-19 pandemic and consented to this option. Patient location: [place] Provider located at [facility]
--- NOTE | 2020-12-01 10:10 | BH.SGPN.GN ---
Behaviors/Verbalizations/Mental Status: []Client alert and oriented, casually dressed and groomed. Eye contact fair. Motor activity appropriate. Speech within normal limits. Affect constricted, mood anxious. Thoughts linear, logical, no signs of hallucinations or delusions. Client Response/Progress/Benefit: []Client engaged participant as shown by active listening and contributing to discussion. Client contributed to the discussion of self-care and the consequences of not practicing self-care. Client helped the group discuss benefits of self-care. Worked with group to identify consequences of poor self-care which included: increased depression, increased anxiety, irritable, and difficulty functioning. Client participated in the discussion on debunking of myths about self-care. Client stated she realizes she would help others with self-care but has different expectations about self-care for herself. Client seemed to benefit from increased awareness of the importance of self-care and challenging common myths that prevent practicing self-care. Will continue IOP tx to decrease anxiety, increase healthy coping and prevent decompensation.
--- NOTE | 2020-12-01 11:18 | BH.SGPN.GN ---
This psychotherapy group was provided via telehealth using two-way, real-time interactive telecommunication technology between the patients and the provider. The interactive telecommunication technology included audio and video. The patient was offered telemedicine as an option for care delivery during the COVID-19 pandemic and consented to this option. Patient location: [place] Provider located at [facility] Behaviors/Verbalizations/Mental Status: []Client alert and oriented, casually dressed and groomed. Eye contact fair to good. Motor activity appropriate. Speech within normal limits. Affect congruent, mood depressed and anxious. Thoughts linear, logical, no signs of hallucinations or delusions. Client Response/Progress/Benefit: []Client engaged participant AEB client taking notes and providing input during discussion, as well as listening attentively to peers. Attentive and nodding throughout group discussion on the various areas of self-care, benefits, and types of self-care activities for each area. Client completed worksheet which identified current self-care practices and what self-care activities client wants to start using. Client shared doing best in the area of financial self-care and would like to begin working to improve upon social and emotional self-care. Left before able to share strategies for improving in these areas. Appeared to benefit from completing the self-care evaluation and gaining insights into current self-care practices, as well as identifying areas in which she would like to improve upon. Will continue IOP tx to prevent decompensation, reduce panic, and continue to promote socialization. Narrative Note: []
--- NOTE | 2020-12-05 09:00 | BH.SGPN.GN ---
Behaviors/Verbalizations/Mental Status: []Client alert and oriented, casually dressed and groomed. Eye contact good. Motor activity appropriate. Speech within normal limits. Affect congruent, mood anxious, depressed. Thoughts linear, logical, no signs of hallucinations or delusions. Reviewed client?s symptom tracker, no risk for suicidal ideation, plan, or intent as of 12/05/20 Client Response/Progress/Benefit: []Client responded well to session, mostly passive but remained attentive and willing to process with group. Client reports feeling ?unsure? today and attributes this to ongoing difficulties with seeing personal progress, as well as anxiety about returning to work. Discussed feeling concerned that she will not be able to manage her mental health sx upon returning to work and continue to struggle with completing occupational duties. Receptive of supportive feedback, normalization, and suggestions for reducing anxiety in the workplace provided by fellow participants. Did well to challenge difficulties in identifying progress by sharing several accomplishments in the past week. Identified these as showering several days in a row, making plans to meet with a coworker to catch-up rather than just texting them, as well as completing several tasks around the house. Noted that reminding herself of how good she will feel afterward has aided in improving her motivation. Benefitted from challenging use of minimization and supportive group environment. Recommended continued IOP tx to improve anxiety management and better manage/combat anxious thoughts impacting ability to return to work, increase engagement in self-care activities, and further promote small daily goal setting. Narrative Note: []
--- NOTE | 2020-12-05 11:06 | BH.SGPN.GN ---
Behaviors/Verbalizations/Mental Status: []Client alert and oriented, neatly dressed and groomed. Eye contact good. Motor activity appropriate. Speech within normal limits. Affect constricted, mood dysthymic and anxious. Thoughts linear, logical, no signs of hallucinations or delusions. Client Response/Progress/Benefit: []Client engaged during activity and provided ideas on how to cope with internal barriers that keep clients stuck from moving towards goals. Client able to identify barriers to desired reality. Identified barriers to current reality to include: anxious, lack of motivation, and negative thinking. Client wants to work on improving motivation by using opposite action. Client wants to start cleaning one room in her house. Client also wants to work on reaching out to supports more for motivation. Benefited from group by identifying obstacles and solutions to desired reality. Client will continue IOP tx to reduce negative thinking patterns, improve functioning, and increase the use of healthy coping skills. Narrative Note: []
--- NOTE | 2020-12-06 09:05 | BH.SGPN.GN ---
Behaviors/Verbalizations/Mental Status: Eye contact is good. Motor activity is appropriate. Appearance is casual. Speech is appropriate. Mood is anxious. Affect is congruent. Thoughts are linear and logical. No evidence of psychosis. Reviewed daily check in sheet with no reports of suicidal ideations, plan, or intent. Client Response/Progress/Benefit: Client was attentive and engaged throughout group session and reported her emotion of the day as ?nervous.? Client struggled with minimization in reporting mental health wins such as going to dinner with a coworker earlier in the week. Client voiced feelings of not wanting to get off the couch and being unmotivated, but seemed to benefit from group discussion of setting small goals, utilizing opposite action, and then rewarding yourself. Will continue IOP treatment to reduce depression and anxiety symptoms and improve coping skills application as client works to transition back to work. Narrative Note: []
--- NOTE | 2020-12-06 10:15 | BH.SGPN.GN ---
Behaviors/Verbalizations/Mental Status: []Client alert and oriented, neatly dressed and groomed. Eye contact good. Motor activity appropriate. Speech within normal limits. Affect constricted, mood depressed and anxious. Thoughts linear, logical, no signs of hallucinations or delusions. Client Response/Progress/Benefit: []Pt was attentive during psychoeducation and taking notes, but did not contribute to discussion. Participated in short activity about automatic thoughts and shared that mood and past experiences can impact automatic thoughts. Group was primarily educational; therapist introduced and gave examples of the 10 cognitive distortions. Benefited from education and increased awareness of cognitive distortions and role that they play in negative thoughts and emotions. Pt did not share which distortions she connected with, but pt was nodding at examples provided by peers. Will continue IOP tx to prevent decompensation, increase application of coping skills, and promote work-related functioning. Narrative Note: []
--- NOTE | 2020-12-06 11:18 | BH.SGPN.GN ---
Behaviors/Verbalizations/Mental Status: []Eye contact is fair to good. Motor activity is appropriate. Appearance is neat and casual. Speech is Appropriate, quiet. Mood is anxious, depressed. Affect is congruent. Thoughts are linear and logical. No evidence of psychosis. Client Response/Progress/Benefit: []Pt was an active participant, taking notes and providing some input throughout group discussion and activity though remained mostly passive. Attentive during psychoeducation on cognitive distortions not discussed in previous group and indicated connecting with distortion of personalization. Pt was a passive but attentive participant in Cognitive Distortions Jeopardy, providing some input and suggestions to small group. Utilized notes from psychoeducation on cognitive distortions to assist peers in correctly answering questions. However, continues to struggle with anxiety and self-doubt which at times appears to impede engagement. Will continue to encourage pt to provide input to improve confidence in the group setting. Experiential activity was beneficial as it provided a way for patient to review notes and handouts during psychoeducation to answer questions for the game. Will continue in IOP tx to further improve behavior activation for combating symptoms of depression, reduce avoidance and isolation, and further improve ability to identify and challenge distorted thoughts. Narrative Note: []
--- NOTE | 2020-12-06 12:36 | PCM.BH.PN ---
Progress Note Progress Note: History of Present Illness/Interim History: [] The patient is a 50-year-old female who is seen in follow-up at the [facility] behavioral health IOP program. She is a history of treatment resistant depression, anxiety and narcolepsy. The patient feels that the IOP is helping her learn new skills but she states that it is hard for her to remember everything that she learns during the classes. The patient had a Covid test that was +14 days earlier and is now back attending in person. She denies any symptoms remaining from Covid. The patient remains feeling anxious. She states that she is worried about going back to work in 3 weeks. 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 She feels that she remains somewhat apathetic and still just wants to lay around and doing nothing. She states that she is getting a little more done now than she was 3 weeks ago but remains very depressed. The patient states that she is going to see her outpatient psychiatrist arturo. Her energy level remains low during the day and she wants to sleep a lot all day despite the stimulant medications for narcolepsy. She denies any passive thoughts of , suicidal ideation, homicidal ideation, hallucinations or delusions. She continues to have occasional panic attacks. Current Psychiatric Medications: [] Prozac 100 mg daily (dose increased 2 weeks ago, on this for years); Geodon 20 mg p.o. daily (her outpatient psychiatrist is weaning her off this medication); for narcolepsy the patient takes: Xyrem 500 mg nightly; modafinil 200 mg every morning; dexmethylphenidate 10 mg p.o. 4 times a day. For restless leg syndrome the patient is on pramipexole 0.125 mg p.o. nightly Mental Status Examination: [] Patient is a 50-year-old female who is casually dressed and groomed with good hygiene and grooming. Her outfield is well coordinated and she has matching nail salvadorean. She has no psychomotor agitation or retardation. Eye contact is good and speech is normal rate and rhythm and fluent with no pressure. Mood is depressed. Affect is euthymic today. Thought process is goal-directed and organized. Thought content: There is no evidence of passive thoughts of , suicidal ideation, plan for suicide, homicidal ideation, hallucinations or delusions. Patient today is anxious about possibly going back to work in 3 weeks. Judgment is intact. Insight is limited. Impulsivity is low. Diagnoses: [] 1. Major depressive disorder, recurrent, severe without psychosis 2. Generalized anxiety disorder 3. Narcolepsy 4. Restless leg syndrome 5. Primary support (marital) issues and work issues Plan: [] The patient will continue the IOP program at [facility] as the structure, support, education and group therapy will hopefully prevent worsening of the patient's symptoms. She felt safe during the interview and if it anytime she does not feel safe she will let us know or go to the emergency room. The risks, options, possible complications and side effects of medications were discussed with the patient and she understands and accepts these. The patient sees her outpatient psychiatrist arturo. No medication changes were made today. Consideration will be given to weaning the Prozac since she has been on it a long time and trying something else. Patient has had treatment resistant depression and has refused TMS and ECT in the past. She will continue to follow-up with her outpatient providers and I will see the patient in follow-up in 6 in 1 to 2 weeks.
--- NOTE | 2020-12-07 09:00 | BH.SGPN.GN ---
Behaviors/Verbalizations/Mental Status: []Client alert and oriented, neatly dressed and groomed. Eye contact good. Motor activity appropriate. Speech within normal limits. Affect constricted, mood anxious. Thoughts linear, logical, no signs of hallucinations or delusions. Reviewed client?s symptom tracker, no risk for suicidal ideation, plan, or intent as of 12/07/20 Client Response/Progress/Benefit: []Client responded well to session and feedback from peers. Client reports she is trying to feel positive today sharing yesterday she was unmotivated and did not accomplish a lot. Client shared her goals today are to go to the vet and then clean some around the house. Client was asked what would help motivate and hold her accountable, but client was not sure. Client receptive to ideas from group such as having a support person check-in, putting up sticky notes, and using the 15 minute rule. Client reports belief that positive self-talk and reaching out to a support person will help hold her accountable. Appeared to benefit from group support and feedback. Progress noted in client's report of getting out of the house more, but she continues to struggle with self-motivation. Will continue IOP tx to further improve functioning, increase motivation, and reduce anxiety about work. Narrative Note: []
--- NOTE | 2020-12-07 10:10 | BH.SGPN.GN ---
Behaviors/Verbalizations/Mental Status: []Client alert and oriented, neat and casually dressed and groomed. Eye contact good. Motor activity WNL. Speech within normal limits. Affect congruent, mood anxious and depressed. Thoughts linear, logical, no signs of hallucinations or delusions. Client Response/Progress/Benefit: Client responded well to session, attentive and engaged throughout discussion and activity. Agreed with session quote and nodding as pt?s reflected on the impacts of fear of failure on preventing progress and maintaining depression. The group discussed how mindset, one?s reaction to setbacks, and expectations for success determines progress. Client noted connecting with participants discussion on how fear of disappointing others and fear of judgement may reinforce fear of failure. Client appeared to benefit from gaining awareness of the impact fear of failure can have on one?s mental health and wellbeing. Progress noted as client continues to report improving use of skills, reaching out to supports, and reduced depression. However continues to struggle with motivation, consistent skill application, and significant anxiety about returning to work. Will continue IOP to improve coping skill application, reduce avoidance, and continue to improve daily functioning. Narrative Note: []
--- NOTE | 2020-12-07 11:12 | BH.SGPN.GN ---
Behaviors/Verbalizations/Mental Status: []Client alert and oriented, casually dressed and groomed. Eye contact fair to good. Motor activity appropriate. Speech within normal limits. Affect constricted, mood depressed and anxious. Thoughts linear, logical, no signs of hallucinations or delusions. Client Response/Progress/Benefit: []Client responded well to session, engaged in the experiential activity and contributing at times throughout group processing. Discussed that not initially asking for help was a barrier resulting in increased potential failure during the activity. Client completed the fear of failure worksheet and reported that fear of failure has kept client from ?trying new things or trying something again?. Client able to identify thoughts and behaviors that reinforce personal fear of failure which included: unrealistic expectations, past negative experiences, fear of other?s reactions, and self-doubt. Client attentive during discussion of the different strategies to help overcome fear of failure. Identified wanting to work on viewing failure as a potential opportunity for growth in order to overcome fear of failure. Client has made progress with improving use of opposite action and small goal setting but continues to struggle with anxious thinking patterns and negative core beliefs. Client will continue IOP tx to promote ongoing behavior activation skill application, reduce negative self-talk, and improve self-advocacy as she transitions back into the workplace. Narrative Note: []
--- NOTE | 2020-12-08 09:03 | BH.SGPN.GN ---
Behaviors/Verbalizations/Mental Status: []Eye contact is fair to good. Motor activity is appropriate. Appearance is neat and casual. Speech is Appropriate. Mood is depressed and anxious. Affect is flat. Thoughts are linear and logical. No evidence of psychosis. Reviewed daily check in sheet and no reports of suicidal ideations or intent. Client Response/Progress/Benefit: []Pt receptive of session, attentive and nodding throughout group discussion, willing to process with group. Emotion for today is reported as ?depressed?. She attributes this to continued difficulties in motivating herself to do things she would normally do. Discussed wanting to cancel plans to attend her nephew?s football game this evening indicating not feeling like going. Receptive of working with group to challenge these thoughts and identify potential benefits of following through with these plans. Identified she would likely enjoy herself, be able to spend time with family, and support her nephew. Pt benefited from working with group to identify positive self-talk statements she can use to encourage her to go later in the evening. Continues to struggle with negative self-talk and difficulties in applying internal coping mechanisms. Will continue IOP tx to improve application of behavior activation skills, reduce depression, and improve engagement in self-care activities. Narrative Note: []
--- NOTE | 2020-12-08 10:10 | BH.SGPN.GN ---
Behaviors/Verbalizations/Mental Status: [] Eye contact is good. Motor activity is appropriate. Appearance is neat. Speech is Appropriate. Mood is anxious. Affect is congruent. Thoughts are linear and logical. No evidence of psychosis Client Response/Progress/Benefit: [] Pt was an active participant in group discussion. Attentive during psychoeducation on Conflict Styles ( Avoidant, Competing, Accommodating, and Cooperative). Participated in interactive group discussion on why we tend to avoid conflict. Pt along with peers identified several reasons conflict is often avoided which included; don't want to deal with it, anxiety, it can be awkward, can cause more problems, don't want to get hurt, don't want to hurt others, and fear of rejection. Pt along with peers also identified the reasons why we need conflict which included; helps us set boundaries, advocacy, helps us express needs/emotions, and can improve relationships. Conflict style she most often uses is avoiding which leads to her needs not getting met. Benefited from increased awareness on conflict styles. Will continue in IOP to prevent decompensation, increase healthy coping, and to improve functioning to return to work. Narrative Note: []
--- NOTE | 2020-12-08 11:10 | BH.SGPN.GN ---
Behaviors/Verbalizations/Mental Status: []Client alert and oriented, neatly dressed and groomed. Eye contact good. Motor activity restless. Speech within normal limits. Affect constricted, mood anxious and depressed. Thoughts linear, logical, no signs of hallucinations or delusions. Client Response/Progress/Benefit: []Client engaged in session AEB contributing to discussion and engaging in activity. Client did well to review current conflict style and its impact on mental health. Acknowledged the impact being accommodating has on client?s mental health. Attentive and taking notes during discussion on strategies for more effectively managing conflict in personal life. Client participated in activity and did well, when prompted by therapist, to express her ideas rather than accommodate others. Client wants to work on discussing one topic at a time to better manage conflict. Appeared to benefit from gaining strategies to help client better manage conflict. Will continue IOP tx to reduce anxiety to help client return to work and to challenge negative thinking patterns. Narrative Note: []
--- NOTE | 2020-12-11 10:15 | BH.SGPN.GN ---
Behaviors/Verbalizations/Mental Status: []Client alert and oriented, casually dressed and groomed. Eye contact fair. Motor activity appropriate. Speech within normal limits. Affect constricted, mood anxious and dysthymic. Thoughts linear, logical, no signs of hallucinations or delusions. Client Response/Progress/Benefit: []Pt was a mostly passive participant AEB pt not providing input during discussions. Attentive during psychoeducation and taking notes. Appeared to connect with topic of personal pitfalls and how they can impede mental health treatment progress. Pt and peers also discussed reasons why overcoming pitfalls is so challenging. During experiential activity pt along with peers identified several pitfalls from the activity that are also associated with mental health. Pt shared her personal pitfalls include: negative self-talk, not thinking things through, and mind-reading. Benefited from group by increasing awareness of pitfalls which can impact mental health. Pt will continue in IOP tx to increase use of healthy coping skills, challenge distorted thoughts and prevent decompensation. Narrative Note: []
--- NOTE | 2020-12-11 11:06 | BH.MDN ---
Multi-Disciplinary Note - Note 30-min Individual Time Started:: 09:34 Date: 12/11/20 Purpose of session/treatment goals addressed:: Reviewed current symptoms skill application, and progress in IOP. Worked with client to identify activities and create a small goal to begin reducing depression and increase engagement. Began discharge planning. Eye Contact:: Good - at times appearing tearful Motor Activity:: Appropriate Appearance:: Neat, Casual Speech:: Appropriate Mood:: Anxious Affect:: Congruent Thoughts:: Linear, Logical, No evidence of hallucinations/delusions noted Staff Interventions:: thought challenging - Challenged cognitive distortions reinforcing depression and anxiety., motivational interviewing - to elicit change, discharge planning - regarding return to work, strengths perspective, reviewed DSM-5, goal setting - Discussed importance of spending time with supports and engaging in activities for enjoyment that she is interested in to continue to reduce depression Client Response:: Client receptive of session, engaged throughout. Discussed going to visit her daughter at college with her this weekend. Noted this had been enjoyable but she initially struggled with motivation to walk around the campus with her family. Able to use opposite action to do so and reports increased ability to be present and enjoy the experience as a result. Shared talking with her daughter about IOP treatment and reflecting on areas of progress as well as areas she continues to struggle. Identified progress in reduced time spent ?laying around?, increased ability to accomplished tasks around the house, and increased willingness to reach out and make plans with supports. Shared she plans to contact a friend to schedule time to get together which is progress and has been walking up and down the driveway with her at night. Noted she still struggles with ?laying around? and taking naps; however, upon further discussion reflected taking one 30-minute nap a day. Receptive of challenging expectation that she ?should? be able to get through the day without any breaks and noted that taking a break ?can be okay as long as I still get up afterwards?. Shared feeling her mood is improved and she is no longer depressed most of the day, but feels she is ?not happy? either. Discussed expectations and whether client has experienced any moments of happiness in the past few weeks. Client noted she had and was receptive of discussion on keeping a log of ?small positives? she experiences throughout the day. Expressed beliefs this would aid in noticing when she feels positive more easily as well. Expressed areas she continues to struggle as ongoing isolation and anxiety about return to work. Identified that feeling obligated to clean the house daily after leaving IOP group has become a major stressor and leaves little time for her to complete other tasks. Noted not wanting to to spend her few hours of free time cleaning upon returning to work. Discussed speaking with her about hiring a cleaning lady which he was initially unreceptive to but has since become more open to the idea. Believes this will give her time to spend walking the dog or attending a class. Reported previously doing palates but has not made time for this in years and would like to get back into exercising. Identified the mental health benefits of doing so and expressed plans to reach out to a coworker about going to a yoga class together. Risks/Concerns:: Denies any suicidal or homicidal ideations, plan, or intent. Future-oriented. Progress Toward Goals/Plan:: According to 4 week DSM cross-cutting scales pt has had a 43% reduction in overall symptoms. Her depression scores have decreased by 38%, irritability by 33%, and her anxiety scores have decreased by 27%. Client reports that although she would like to see more significant progress, overall she believes she is benefiting from the program. Increased insight and awareness of what is contributing to depression and able to identify skills to address these barriers. Primary challenge and stressor is expectations of self, as well as anxiety associated with return to work. 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 Continues to report utilizing skills which we reviewed, though reports ongoing issues with motivation. Encouraged to utilize self-care and begin identifying small daily positives. Plan is to continue in IOP to maintain stability, increase healthy coping, and reduce isolation and avoidance as client transitions back to work. Time Stopped:: 10:09
--- NOTE | 2020-12-11 11:15 | BH.SGPN.GN ---
Behaviors/Verbalizations/Mental Status: []Client alert and oriented, casually dressed and groomed. Eye contact good. Motor activity appropriate. Speech within normal limits. Affect flat, mood anxious. Thoughts linear, logical, no signs of hallucinations or delusions. Client Response/Progress/Benefit: []Client receptive of session, engaged throughout AEB client actively listening and contributing to discussion, as well as taking notes. Client completed worksheet identifying personal pitfalls impacting mental health progress. Client identified the following pitfalls: negative self-talk, not thinking things through when anxious, and mind-reading. Group learned different coping skills to help manage pitfalls. Client selected negative self-talk as the pitfall client wants to overcome. Client plans to work on this by practicing positive affirmations. Benefited from identifying personal pitfalls and strategies to overcome these pitfalls. Will continue IOP tx to reduce anxiety that has hindered functioning and combat distortions that reinforce depression. Narrative Note: []
--- NOTE | 2020-12-11 21:55 | BH.MTP_ITS ---
Treatment Plan Review Date of Admission:: 11/13/20 Date of Treatment Plan Review:: 12/11/20 Admitting Diagnoses:: 1. Major depressive disorder, recurrent, severe without psychosis. 2. Generalized anxiety disorder. 3. Narcolepsy Current Diagnoses:: 1. Major depressive disorder, recurrent, severe without psychosis. 2. Generalized anxiety disorder. 3. Narcolepsy Patient's Response to Treatment:: Pt has responded well to treatment AEB co nsistent attendance, providing input when prompted during group sessions, actively working to improve application of skills outside treatment environment, remaining medication compliant, and making efforts to increase engagement in activities outside of the house. Client does struggle at times with self-care and negative self-talk which is often a direct response to unrealistic expectations of self. Client is often receptive of feedback from staff and peers and provides supportive feedback. Status of Current Problems and Symptoms: Overall, client DSM-5 cross-cutting sc ores display a reduction of 43%. Client's problems are ongoing, though she has noted some reduction in mental health symptoms, specifically that of depression, client continues to report experiencing ongoing sx. Client struggles with giving herself credit for the progress she has made which may contribute to reinforcing negative self-talk maintaining depression and anxiety about returning to work. Client struggles with challenging herself to create more realistic expectations of herself which may also contribute to ongoing symptomology. Despite this, client has seen some reduction in depressive symptoms of 38%, anxiety reduced by 27%, and feelings of being disconnected from self/others is reduced by 67%. Problem #1 Problem Name:: Depression, Isolation Status of Goals:: Objective 1- not complete. Client has made some progress in identifying healthy activities for reducing isolation and increasing engagement in activities she has found enjoyable in the past. She has successfully reported improved ability to complete tasks around the house, however these tasks become a preoccupation (i.e. cleaning every room daily) which inhibits client?s ability to schedule time for activities she enjoys. Client has reported reaching out to friends and meeting up with a friend for dinner. Reports plans to schedule a yoga class this week as well. Objective 2- complete, with additional progress recommended. Client continues to work on identifying and implementing healthy coping skills to reduce depression, improve motivation, and engage in activities she has previously enjoyed. This is seen in client?s overall 38% reduction of depressive sx as indicated in DSM-5 scores. Team Recommendations:: Recommended continued focus on current treatment goals with more emphasis on improving client ability to recognize and give herself credit for areas of progress. Additionally, recommended increased focus on challenging use of cognitive distortions and continuing to promote socialization with healthy supports. Problem #2 Problem Name:: Anxiety, Panic Status of Goals:: Obj 1- Complete with additional progress recommended. Client able to identify at least two calming skills she can use in times of increased anxiety and indicates often using deep breathing and the 5-senses skills. Struggles at times with recognizing triggers in order to apply calming skills proactively. Obj 2 - Complete with additional progress recommended. Client has reported a slight reduction in anxiety and this is indicated in the DSM -5 comparison of scores as a 27% reduction in anxiety related symptoms. Client however, continues to struggle with significant anxiety associated with fear of the unknown, as well as worry about returning to work. Team Recommendations:: Continue current goals, with specific focus on improving client ability to identify and challenge unrealistic expectations of self and fixed thinking patterns. 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
--- NOTE | 2020-12-12 09:00 | BH.SGPN.GN ---
Behaviors/Verbalizations/Mental Status: []Eye contact is good. Motor activity is appropriate. Appearance is neat and casual. Speech is Appropriate. Mood is anxious and dysthymic. Affect is congruent. Thoughts are linear and logical. No evidence of psychosis. Reviewed daily check in sheet and no reports of suicidal ideations or intent. Client Response/Progress/Benefit: []Pt receptive of group and participated when prompted. Attentive and nodding when relating as others shared throughout. Identified her emotion for the day as ?tired? and indicated rainy days tend to make her feel more tired. Did well to identify current mental health wins which included: going to her nephew?s football game on Friday, as well as getting out of the house and taking her dog to the vet yesterday. Discussed having to use opposite action and positive self-talk to overcome lack of motivation. Reports reminding herself of the benefits of following through with her goals as primary source of motivation. Went on to discuss returning to work continues to be a stressor. Did well to work with therapist to identify steps to begin preparing herself for retuning to work. Additionally benefited from group support on this topic. Recommended continued IOP tx to continue to promote engagement in enjoyable activities and self-care, as well as maintain stability as client transitions back to work. Narrative Note: []
--- NOTE | 2020-12-12 10:08 | BH.SGPN.GN ---
Behaviors/Verbalizations/Mental Status: []Client alert and oriented, casually dressed and groomed. Eye contact good. Motor activity appropriate. Speech within normal limits. Affect constricted, mood anxious. Thoughts linear, logical, no signs of hallucinations or delusions. client Response/Progress/Benefit: v[]Client engaged during session AEB client occasionally contributing during discussion and completing worksheet. Connected with discussion on crisis and how coping with external crises by using unhealthy coping skills could result in a personal crisis. Group reflected on the importance of having awareness of personal warning signs to prevent reaching crisis point. Group identified potential warning signs for crisis and client completed the personal warning signs worksheet. Client identified personal crisis warning signs to include: increased negative thinking, sleeping more than usual, and not taking care of herself. Client benefited by increasing awareness of what leads to crisis and personal warning signs. Client will continue IOP tx to further decrease depression and anxiety symptoms while helping client transition back to work. Narrative Note: []
--- NOTE | 2020-12-12 11:15 | BH.SGPN.GN ---
Behaviors/Verbalizations/Mental Status: []Client alert and oriented, casually dressed and groomed. Eye contact fair. Motor activity appropriate. Speech within normal limits. Affect constricted, mood anxious and dysthymic. Thoughts linear, logical, no signs of hallucinations or delusions. Client Response/Progress/Benefit: []Client responded well to session as evidenced by client listening attentively to others and providing strategies during discussion. Client identified personal warning signs for crisis and gained further awareness of earliest warning signs. Client created a crisis action plan to help client better manage warning signs for crisis. Client?s action plan for negative thinking included: opposite action, talking to a support, habit stacking, and physical activity.. Client appeared to benefit from creating a crisis action plan and increasing self-awareness. Client to continue IOP tx to increase healthy coping, improve daily functioning and prevent decompensation. Narrative Note: []
--- NOTE | 2020-12-13 09:05 | BH.SGPN.GN ---
Behaviors/Verbalizations/Mental Status: []Client alert and oriented, neatly dressed and groomed. Eye contact good. Motor activity appropriate. Speech within normal limits. Affect constricted, mood anxious. Thoughts linear, logical, no signs of hallucinations or delusions. Reviewed client?s symptom tracker, no risk for suicidal ideation, plan, or intent as of 12/13/20 Client Response/Progress/Benefit: C[]Client responded well to session, attentive but quiet. Client reports feeling tired this morning and shared that yesterday she laid down more than I wanted to. Client has been doing much better with getting out of the house and being productive at home, however, because she was less productive yesterday, she is having distorted thoughts. Group helped client challenge these distortions and remind client not to use mental filter on progress. Client able to highlight that she took her dog on a long car ride and she has been laying down less overall. Client is anxious about returning to work and will meet with her individual counselor to process this. Appeared to benefit from challenging distortions in the moment and connecting with peers. Will continue IOP tx to promote use of healthy coping skills that will reduce anxiety and help client return to work. Narrative Note: []
--- NOTE | 2020-12-13 10:15 | BH.SGPN.GN ---
Behaviors/Verbalizations/Mental Status: [] Eye contact is good. Motor activity is appropriate. Appearance is casual. Speech is Appropriate. Mood is anxious. Affect is congruent. Thoughts are linear and logical. No evidence of psychosis. Client Response/Progress/Benefit: [] Pt was an active participant in group discussion and activity. Attentive during psychoeducation on fixed mindset and fixed thinking. Participated with group in experiential activity which initially seemed impossible however worked with peers to come up alternative solutions while practicing the skills at looking at obstacle with growth mindset. Completed worksheet in which pt identified common fixed thoughts she has which included; I'm not able to get everything done. Benefited from increased awareness of fixed thinking. Will continue in IOP to prevent decompensation, increase healthy coping, and improve functioning to return to work. Narrative Note: []
--- NOTE | 2020-12-13 11:10 | BH.SGPN.GN ---
Behaviors/Verbalizations/Mental Status: []Client alert and oriented, neat and casually dressed and groomed. Eye contact good. Motor activity appropriate. Speech within normal limits, quiet. Affect constricted. mood anxious. Thoughts linear, logical, no signs of hallucinations or delusions. Client Response/Progress/Benefit: []Client engaged during activity and discussion AEB remaining attentive throughout psychoeducation and taking notes throughout. Client did well to remain attentive as group worked on identifying characteristics and benefits of adopting a growth mindset. Listened and appearing to connect with discussion as fellow participants worked on reframing the example fixed thoughts into growth mindset thoughts. Client worked in small group to apply skills learned to reframe own personal fixed thoughts. Reframed personal fixed thought of ?I shouldn?t feel depressed? with growth mindset thought of ?progress takes time. it?s okay if I feel depressed, I don?t have to keep beating myself up about these thoughts. I can keep working on learning to think more positively?. Noted that this would aid in reducing stress and improve her mood in time. Benefitted from discussing benefits of growth mindset and brainstorming strategies for prompting growth-mindset. Client continues to struggle with distorted thought patterns, self-doubt, and unrealistic expectations of herself. Recommended to continue in IOP tx to promote active thought challenging, improve self-talk, promote continued application of behavior activation skills. Narrative Note: []
--- NOTE | 2020-12-14 10:10 | BH.SGPN.GN ---
Behaviors/Verbalizations/Mental Status: [] Eye contact is good. Motor activity is appropriate. Appearance is casual. Speech is Appropriate. Mood is anxious. Affect is congruent. Thoughts are linear and logical. No evidence of psychosis. Client Response/Progress/Benefit: [] Pt was an active participant in group discussion and activity. Attentive during psychoeducation on the stages of change. Pt participated in interactive discussion on emotions associated with change (happy, ecstatic, lonely, shocked, surprised, lonely, etc). Pt along with peers identified barriers that may prevent one from making change which included; stuck in routine, habits, fear, others, and responsibilities. Group able to identify the benefits to changes such as personal growth, feeling more positive, increased confidence, healthier environment, improved relationships, and obtaining goals. Benefited from increased awareness of emotions related to change, the change process, and benefits/barriers to change. Will continue in IOP to prevent decompensation, increase healthy coping, and improve functioning to return to work. Narrative Note: []
--- NOTE | 2020-12-14 11:13 | BH.SGPN.GN ---
Behaviors/Verbalizations/Mental Status: []Client alert and oriented, neat and casually dressed and groomed. Eye contact fair to good. Motor activity appropriate. Speech within normal limits. Affect constricted, mood anxious, depressed. Thoughts linear, logical, no signs of hallucinations or delusions. Client Response/Progress/Benefit: []Client was an active participant AEB remaining attentive during discussion and taking notes throughout. Client listened during continued discussion and psychoeducation on the stages of change. Did well to process activity and work with group to relate the barriers and strategies used to overcome the barriers to managing change in own life. Receptive of psychoeducation on using a decisional balance sheet to address uncertainties associated with making changes. Client identified a change she is currently contemplating as ?returning to work?. Shared initially struggling to identify the various pros and cons of this decision, but with assistance was able to do to. Identified potential benefits of this change include: getting back into a routine, less guilt, and more support from her co-workers. Discussed some potential costs preventing from making this change as: anxiety, feeling overwhelmed, and less time for self-care. Client appeared to benefit from reflecting on the benefits of changing vs. costs of not changing, as well as barriers to change and resources for addressing those barriers. Recommended continued IOP tx to continue to improve distress tolerance and use of emotion regulation skills in times of increased anxiety, as well as improve healthy self-care and communication with supports. Narrative Note: []
--- NOTE | 2020-12-15 09:00 | BH.SGPN.GN ---
Behaviors/Verbalizations/Mental Status: []Pt eye contact good, casually dressed, motor activity appropriate, speech normal rate and tone, mood anxious, constricted affect, thoughts linear and intact, no evidence of delusions or hallucinations. Reviewed client?s symptom tracker, no signs of suicidal ideation, plan, or intent as of today. Client Response/Progress/Benefit: []Pt responded well to session AEB by listening to others and sharing thoughts and feelings. Pt reported she was struggling this morning to get moving and had to use opposite action to get to IOP today. Pt stated there was no apparent trigger to her lack of motivation this morning. Pt reported positive-self talk also helped her overcome depressed thoughts this morning. Pt stated additional mental health win as going to meet a co-worker for lunch this week. Identified stressor as returning to work in two weeks. Pt to continue IOP to increase consistent use of healthy coping, challenge distorted thoughts and prevent decompensation. Narrative Note: []
--- NOTE | 2020-12-18 09:05 | BH.SGPN.GN ---
Behaviors/Verbalizations/Mental Status: [] Eye contact is good. Motor activity is appropriate. Appearance is neat. Speech is Appropriate. Mood is anxious. Affect is congruent. Thoughts are linear and logical. No evidence of psychosis. Reviewed daily check in sheet and no reports of suicidal ideations or intent. Client Response/Progress/Benefit: [] Pt participated when prompted. Attentive. Emotion for today is nervous. Daily symptom tracker notes 5/5 for anxiety and depression. Despite high scores pt reports being more motivated and increase energy. Reports that she is completing tasks throughout the day. Discounts her positives stating maybe this is b/c I've been taking naps. When peers pointed out progress she immediately states it may be b/c she is not working. She asked group how do we know we are better. Group pointed out self-report. Therapist pointed out pt's decrease in outcome measurements from admission. Progress noted per pt report. Benefited from goup support and feedback. Will continue in IOP to prevent decompensation and maintain gains. Narrative Note: []
--- NOTE | 2020-12-18 10:15 | BH.SGPN.GN ---
Behaviors/Verbalizations/Mental Status: []Client alert and oriented, well dressed and groomed. Eye contact fair. Motor activity appropriate. Speech within normal limits. Affect constricted, mood anxious. Thoughts linear, logical, no signs of hallucinations or delusions. Client Response/Progress/Benefit: []Client mostly passive participant AEB client providing limited contributions during group discussion. Client did appear to listen attentively to others and took notes throughout session. Group was primarily education based, with client participating in small group discussion regarding traits that promote resilience. Client attentive to large group discussion. Client appeared to benefit from psychoeducation. Will continue IOP treatment to prevent decompensation and increase daily functioning.
--- NOTE | 2020-12-18 11:16 | BH.SGPN.GN ---
Behaviors/Verbalizations/Mental Status: []Client alert and oriented, neat casual dress, hygiene tended to. Eye contact fair. Motor activity appropriate. Speech within normal limits. Affect congruent, mood anxious and dysthymic. Thoughts linear, logical, no signs of hallucinations or delusions. Client Response/Progress/Benefit: []Client responded well to session AEB contributing to discussion and completing the resilience worksheet provided. Increased communication in small group setting indicates progress with engagement and reduced anxiety. Client participated in the discussion of how each resiliency component can help increase personal resiliency and worked cooperatively with group to identify strategies to enhance each of the components discussed. Client reported she feels she is doing well with implementing the resilience component of ?move towards goals?, indicating she has made much progress in doing so over the past few weeks. Went on to reflect wanting to improve personal resilience in the area of ?Maintain a hopeful outlook? Client stated she would like to begin using positive affirmations and reminding herself ?things can be okay? to improve her outlook. Client seemed to benefit from discussing strategies for improving personal resilience and establishing a small goal in order to begin doing so. Will continue IOP to improve self-confidence and acknowledgement of progress, increase healthy communication with supports, and prevent decompensation as client transitions back to work. Narrative Note: []
--- NOTE | 2020-12-19 08:17 | BH.MDN ---
Multi-Disciplinary Note - Note 30-min Individual Time Started:: 10:26 Date: 12/19/20 Purpose of session/treatment goals addressed:: Addressed treatment goals #1 and #2 by creating a maintenance plan to aid in identifying and addressing warning signs for depression and anxiety as pt discharges from IOP tx this week. Discussed expectations for return to work on Friday and reviewed workplace coping skills. Eye Contact:: Good Motor Activity:: Appropriate Appearance:: Neat, Casual Speech:: Appropriate Mood:: Anxious, Dysthymic Affect:: Congruent Thoughts:: Linear, Logical, No evidence of hallucinations/delusions noted Staff Interventions:: thought challenging - pt continues to struggle with minimizing progress and skills she has been using, motivational interviewing - to continue to elicit healthy change behaviors, as well as identify potential warning signs/barriers to maintaining progress post IOP discharge., discharge planning, strengths perspective - to aid in identifying and utilizing strengths in aftercare maintenance coping plan. Client Response:: Client reports she is doing ?alright? this morning but has started to experience increased anxiety as she returns to work next week. 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 Pt and therapist discussed skills client can use if feeling overwhelmed at work, as well as healthy supports within the workplace. Client continues to initially struggle to identify these resources but with prompt and encouragement was able to do so. Identified plans to bring her IOP binder with her to reference as well. Due to difficulties in remembering her skills in the moment, Client was receptive of creating a Mental Health Maintenance plan for her to refer to anytime she may be struggling. Plan highlighted warning signs for both anxiety and depression client should be aware of and pay attention to, as well as skills and additional resources she may use to best cope with each of the identified warning signs. Client identified skills such as ?challenge myself to do at least one small thing and build off of that?, ?tell myself something positive such as ?I?ve done this for 30 years, I know I can do it??, or ?reach out to a support person?. Client noted feeling a little more prepared having a concrete coping plan to reference. Went on to share continued struggles with feeling she has not made enough progress in treating her depression as she still feels tired at times throughout the day. Client struggles with significantly minimizing her progress. Receptive of being challenged to identify areas she has made progress. This includes: spending more time out of the house with friends and family, less time isolating and more able to complete household responsibilities, setting a boundary of hiring a cleaning lady to allow client time for self-care on the weekends, reaching out to her mother to review the materials she has learned in [facility] tx, and making plans to re-engage in daily exercise routine. Homework is to identify environments and behaviors to avoid post-discharge. Risks/Concerns:: None noted. Pt continues to deny any suicidal ideation, plan, or intent as of this date. Progress Toward Goals/Plan:: Progress noted since [facility] admission. Client reports improved ability to engage with others, complete tasks around the house, reach out to supports, and schedule time for self-care. Continues to struggle with depression related to not knowing what she truly enjoys and prolonged fatigue. Ongoing fatigue may in part be related to client dx of narcolepsy. Client plan is to discharge from [facility] tx and return to work full-time Friday. Reports some anxiety about doing so but has done well to identify skills she may use to help support herself in the workplace. Time Stopped:: 11:01
--- NOTE | 2020-12-19 09:05 | BH.SGPN.GN ---
Behaviors/Verbalizations/Mental Status: []Client alert and oriented, neatly dressed and groomed. Eye contact good. Motor activity appropriate. Speech within normal limits. Affect constricted, mood anxious. Thoughts linear, logical, no signs of hallucinations or delusions. Reviewed client?s symptom tracker, no risk for suicidal ideation, plan, or intent as of 12/19/20 Client Response/Progress/Benefit: C[]Client responded well to session, attentive and providing encouragement to new group member. Client reports feeling tired and anxious this morning. Client stated she feels anxious about it being her last week of IOP and returning to work. Client shared she has learned a lot being in IOP, so client understands she has more coping skills, but she still worries about functioning while working full-time. Therapist helped client challenge self-doubt and reflect on progress since starting IOP. Client able to see that her mood, functioning, and tolerance of stress has improved over the past 6 weeks. Client reports consistent use of opposite action and positive self-talk. Appeared to benefit from gentle thought challenging. Will continue IOP tx this week to reinforce healthy coping skills and establish aftercare. Narrative Note: []
--- NOTE | 2020-12-19 11:15 | BH.SGPN.GN ---
Behaviors/Verbalizations/Mental Status: []Client alert and oriented, neat and casually dressed and groomed. Eye contact good. Motor activity appropriate. Speech within normal limits. Affect congruent, mood anxious, dysthymic. Thoughts linear, logical, no signs of hallucinations or delusions. Client Response/Progress/Benefit: []Client engaged throughout AEB providing input when prompted, taking notes, and actively participating in challenge activity. Client listened to other participants? ideas and was receptive of ideas from the group throughout. Able to make connections between activity and stress management skills in daily life. Nodding as fellow participants shared personal connections. Client remained attentive and taking notes during discussion about the 4 A's of managing stress, expressing connection with the various benefits of each. Shared wanting to continue to practice the skill of trying to adapt her perspective regarding approach to current stressors and look for the positives rather than focus on what seems too overwhelming or difficult. Expressed this may help reduce anxiety as well. Client seemed to benefit from increased awareness of the impact of stress on mental health and increasing repertoire of stress management strategies. Will continue IOP tx to prevent decompensation, improve recognition of personal progress, and continue to discuss coping skills for return to work next week. Narrative Note: []
--- NOTE | 2020-12-20 09:05 | BH.SGPN.GN ---
Behaviors/Verbalizations/Mental Status: Eye contact is good. Motor activity is appropriate. Appearance is casual. Speech is appropriate. Mood is anxious. Affect is congruent. Thoughts are linear and logical. No evidence of psychosis. Reviewed daily check in sheet with no reports of suicidal ideations, plan, or intent. Client Response/Progress/Benefit: Client was engaged throughout group session, and participated in group discussion. Client expressed emotion of the day as ?tired.? Stated a mental health win of visiting her parents, who are supportive of her mental health treatment. Client also discussed walking her dog and being outside as wins. Client reports being anxious about returning to work, and appeared to benefit from supportive group discussion of this. Reports feeling like she is making progress toward her goals, and is getting near her last day of treatment. Will continue IOP treatment to improve knowledge and application of healthy coping skills, promote anxiety management, and prevent decompensation. Narrative Note: []
--- NOTE | 2020-12-20 10:15 | BH.SGPN.GN ---
Behaviors/Verbalizations/Mental Status: [] Eye contact is good. Motor activity is appropriate. Appearance is neat. Speech is Appropriate. Mood is anxious. Affect is congruent. Thoughts are linear and logical. No evidence of psychosis. Client Response/Progress/Benefit: [] Pt was an active participant in group discussion and activity. Attentive during psychoeducation on what it means to take action. Pt identified symptoms that she wants to take gain control over which included depression, negative self-talk, and fatigue. Reports that if he was able to gain control over these than she would be more active. Increased insight into what could be holding patient back from mental wellness and the importance of taking action on symptoms and obstacles rather than avoiding or ignoring. Will continue in IOP to maintain gains, prevent decompensation, and improve functioning to return to work. Narrative Note: []
--- NOTE | 2020-12-20 11:10 | BH.SGPN.GN ---
Behaviors/Verbalizations/Mental Status: []Client alert and oriented, neatly dressed and groomed. Eye contact good. Motor activity appropriate. Speech within normal limits. Affect constricted, mood anxious. Thoughts linear, logical, no signs of hallucinations or delusions. Client Response/Progress/Benefit: []Client responded well to session, taking notes and participating in worksheet discussion. Client set a goal to gain control over ?feeling tired and letting it control me.? Client recognizes she cannot always control when she is tired, but she can control how she responds to it. Client wants to be able to work on this by making a list of things to do each day and practicing using positive self-talk each day. Progress noted in client?s self-report of reduced avoidance and depressive symptoms. Appeared to benefit from identifying a small goal to benefit mental health. Will continue IOP tx for one more day to reinforce healthy coping skills and establish aftercare. Narrative Note: []
--- NOTE | 2020-12-21 08:57 | BH.IGGP_ITS ---
Aftercare Plan - Demographics Treatment End Date:: 12/21/20 Psychiatrist:: Sindhu Knutson Psychiatrist Office #:: [phone] [facility] Therapist:: Lorraine Villar Therapist Phone #:: [phone] - Plan Details Progress/Aftercare Plan Details:: You have made progress in beginning to make your own mental health needs more of a priority. Taking time to seek treatment has allowed you the opportunity to reflect on what you truly need and begin taking the steps to acquire the supportive resources necessary. This has included setting boundaries with yourself and others in terms of not taking on more than you are capable of (you hired a cleaning lady!), making time to plan for self-care upon returning to work, and challenging yourself to continue to reach out to your supports. Keep this up! You have been making strides in decreasing the negative self-talk and challenging the distorted thoughts that impact your mood and your mental health. Challenging those distortions and nega tive self-talk messages will only continue to help improve your ability to love yourself and treat yourself kinder as a person. Sending yourself compassionate messages in times of increased stress, when you feel overwhelmed or like you can?t do it, and when experiencing high anxiety will continue to help improve your resilience and ability to be cope in difficult times. You have taken steps to improve your overall perspective, reminding yourself that your expectations for yourself may not always be fair. This is a tough skill and you have been putting forth effort to keep trying even when the thoughts are difficult to combat. You have shown progress in your ability to recognize potential warning signs/triggers that you are feeling overwhelmed/burned out and are more proactively doing things about it to help yourself out and avoid escalating to the point of burning yourself out. You?re using rest time to refuel yourself rather than allowing it turn into avoidance and reinforce the depression cycle. Keep this up! Breaks are okay if used as self-care and not because you are depressed! You have made so much progress in using opposite action to encourage yourself to start small and complete small tasks that you can build upon. You have been able to not only get off the couch and do things around the house, but you are now also reaching out to others and making plans with them! Keep making time for the things you enjoy doing and not just the tasks you feel responsible for. Walking [place], visiting with friends, finding an exercise class, and playing solitaire all have their place. They are no less important than doing the laundry or cleaning the house if they make you feel better! You have also made progress in your ability to communicate openly and honestly with your sup ports. I know it can be hard to talk about mental health or reach out when it feels like others may not understand. Just remember, they are here to help you and they don?t always have to fully understand in order to give you the support you need! Strategies for Success:: Opposite Action!!! ? do what will help you, even when your brain is saying ?this is too hard? or ?I can?t do it?, even when it feels uncomfortable, even when you are tempted to give up or fall back into unhealthy coping behaviors like napping or isolating. Doing the hard or the anxious thing is often the healthier option. Challenge negative thought patterns by trying to look at things from the other perspective. Remember ?thoughts are thoughts, not facts?. Ask yourself ?How else can I think about this?? ?Do I have to give this thought value?? ?Is there evidence against this thought?? ?Am I being fair to myself?? ?Would I expect this of someone else??. Remember COMMUNICATE, COMMUNICATE, COMMUNICATE! Your supports won?t know how to help if you don?t let them be a part of the conversation. Your mental health needs are important and deserve to be addressed! Keep challenging yourself to find social activities that YOU enjoy and make YOU feel refreshed. Who and what refills your cup? Continue to make time for yourself! Self-care is goyal to maintaining progress and developing a healthier relationship with yourself! This includes sometimes doing those hard things (such as reaching out or challenging yourself to say ?no? to things that may create unnecessary stress). Get out and get moving! You said exercise makes you feel better, so that should be a priority for you! Use your in the moment calming skills you have learned. Remember, Stop and take a breather before responding when upset! Keep going to therapy! - Appointments Appointments/Referrals to Other Services:: Client plan is to discharge from [facility] tx and return to work full-time Friday. Reports some anxiety about doing so but has done well to identify skills she may use to help support herself in the workplace.Plan is for client to continue with her outpatient providers through the [facility]. Pt next counseling appointment is not until January due to limited availability so pt is recommended to reach out to this therapist to schedule an appointment if needed in the mean time. Continue to follow up with psychiatry through the [facility] as well. - Medications Home Medications: Home Medications dexmethylphenidate 10 mg PO 4X/DAY 05/13/20 levothyroxine 75 mcg PO DAILY 05/13/20 modafinil 200 mg PO DAILY 05/13/20 pramipexole 0.125 mg PO TID 05/13/20 buspirone 10 mg tablet 10 mg PO BID 11/19/20 fluoxetine 20 mg capsule 100 mg PO DAILY 11/19/20 hydroxyzine HCl 25 mg tablet 25 mg PO QHS 11/19/20 multivitamin 1 tab PO DAILY 11/19/20 sodium oxybate 500 mg/mL oral solution 1 g PO BID 11/19/20 ziprasidone HCl 20 mg capsule 20 mg PO DAILY 11/19/20
--- NOTE | 2020-12-21 09:00 | BH.SGPN.GN ---
Behaviors/Verbalizations/Mental Status: [] Eye contact is good. Motor activity is appropriate. Appearance is neat. Speech is Appropriate. Mood is anxious. Affect is congruent. Thoughts are linear and logical. No evidence of psychosis. Reviewed daily check in sheet and no reports of suicidal ideations or intent. Client Response/Progress/Benefit: [] Pt participated when prompted. Attentive. Emotion for today is nervous. Daily symptom tracker notes5/5 for anxiety and depression. This is baseline throughout the program. Shared that today is her last day in [facility]. Plan is for her to return to work next week and she reports that she is looking forward to seeing her co-workers who are big support for her. She reports improved mood and motivation, however is anxious about if this will continue once back to work full-time. Group challenged these thoughts and pointed out progress. She has aftercare set up. Continues to utilize skills and reports group/skill that has been most helpful for her in the past couple months has been opposite action. Benefited from group support, encouragement, and feedback. Progress noted per pt report. Will be discharged from [facility] today. Narrative Note: []
--- NOTE | 2020-12-21 10:12 | BH.SGPN.GN ---
Behaviors/Verbalizations/Mental Status: []Eye contact is good. Motor activity is appropriate. Appearance is casual. Speech is Appropriate. Mood is euthymic. Affect is congruent. Thoughts are linear and logical. No evidence of psychosis. Client Response/Progress/Benefit: []Pt was an quiet participant in group discussions. Attentive and provided insights during psychoeducation on benefits and disadvantages of anxiety and review of different types of Anxiety Disorders (Social Anxiety, ELI, OCD, PTSD, and Separation Anxiety). Completed worksheet on identifying own physical symptoms or signs of anxiety which pt reported numerous however identified most frequent as: restless, nausea, shaking and nausea. Benefited from increased awareness of physiological signs of anxiety as well as differences between 'normal' anxiety and anxiety disorder. Pt is to discharge from [facility] today. Narrative Note: []
--- NOTE | 2020-12-21 11:10 | BH.SGPN.GN ---
Behaviors/Verbalizations/Mental Status: []Client alert and oriented, neatly dressed and groomed. Eye contact good. Motor activity appropriate. Speech within normal limits. Affect constricted, mood anxious. Thoughts linear, logical, no signs of hallucinations or delusions. Client Response/Progress/Benefit: []Client was an active participant in group discussion and providing good insight to peers. Reviewed safety behaviors she engages in that reinforce anxiety. Some of client?s safety behaviors include excessively checking emails and texts and reassurance seeking. Attentive during psychoeducation on mindfulness coping skills and their impact on mental health wellness. The group worked together to brainstorm anxiety reduction strategies. Client selected positive self-talk as the mindfulness skill client will practice for the next three days. Client seemed to benefit from increased repertoire of anxiety reduction skills. Client will discharge from [facility] tx today and return to work. Client has accomplished her treatment goals and no longer meets criteria for [facility] level of care. Narrative Note: []
--- NOTE | 2020-12-21 11:45 | BH.DS_ITS ---
Discharge Summary - Demographics Date of Admission:: 11/13/20 Discharge Date: 12/21/20 Presenting Problems at Admission:: The patient is a 50-year-old female with a history of depression, anxiety, and narcolepsy who was referred to the [facility] behavioral health IOP program by her outpatient psychiatrist secondary to worsening symptoms. Pt reports her symptoms began worsening in April 2020 and have continued decompensating for the past few months. Denies any trigger for increased symptoms. Pt reports symptoms have resulted in taking time off work, increased isolation, and limited ability to complete daily responsibilities. Reports having a hard time accomplishing her activities of daily living and feels overwhelmed by even simple tasks. Shared she ends up sleeping or ?laying around? for much of the day which results in increased guilt, rumination about what she needs to do, and increased negative thinking. Reports decreased ability to function at work resulting in taking FMLA beginning 1 week ago. Recommended ECT and TMS by outpatient provider, however pt declined both. Endorses feeling ?down? and sad, lack of energy and motivation, poor concentration, fatigue, loss of enjoyment in activities, poor appetite, loneliness and isolation. Additionally, reports increased rumination, easily becoming overwhelmed, guilt about not being at work, and daily panic attacks. Denies any SI/HI, plan, or intent. Denies self-harm, hallucinations, or delusions. Reports her parents and sister are supportive but that her is not as he does not ?understand? mental health. Discharge Diagnoses:: 1. Major depressive disorder, recurrent, severe without psychosis. 2. Generalized anxiety disorder. 3. Narcolepsy Reason for Discharge:: Pt completed treatment plan goals and no longer meets criteria for [facility] level of care. - Treatment Progress During Treatment & Response: Pt's attendance in IOP was consistent and pt maintained regular attendance via telehealth following a COVID-19 diagnosis. When she was in IOP she was attentive and took notes throughout. Pt did however at times struggle with anxiety about being in the group setting, however did well to improve ability to engage throughout her admission. Pt has met treatment plan goals as noted above. DSM outcome measurements show a 49% decrease in overall symptoms since admission. DSM also shows a 25% reduction in scores on depression scale,75 % reduction on scores related to lise, and a 36% reduction on scores on the anxiety scales. Pt self-reports improved mood stability, re duced depression, improved engagement in activities she enjoys and ability to socialize with supports, improve boundaries, and strides towards further improving consistency in self-care, as well as self-reports a reduction in anxiety. Reports increased awareness and insight on health coping skills and is regularly sharing this with her supports. Pt is to return to work on Friday and reports some anxiety but feels more prepared to do so. Issues Still to be Addressed:: Would benefit from continued work on communication with supports, increased socialization, and continuing to use opposite action to reduce isolation. Pt struggles with identifying activities she enjoy, so further exploration in this area would also be recommended. Recommended to continue with counseling to work on management of depression, anxiety, and change. Discharge Recommendations/Instructions:: Plan is for client to continue with her outpatient providers through the [facility]. Pt next counseling appointment is not until January due to limited availability so pt is recommended to reach out to this therapist to schedule an appointment if needed in the mean time. Continue to follow up with psychiatry through the [facility] as well. Discharge Handout: Complete Discharge Handout with client on aftercare options and continuity of care.
== END 2020-12-21 13:00 | disposition home or self-care (01) ==
LOC: BHIOP 08:24
PROVIDERS: PCP Internal Medicine; Visit Provider Psychiatry & Neurology Psychiatry
DX: F33.2 Major depressive disorder, recurrent severe without psychotic features (principal); F41.1 Generalized anxiety disorder; G47.419 Narcolepsy without cataplexy
CPT/HCPCS: S9480; 90832; 90834; 90853

== ENCOUNTER 2021-09-07 04:17 | Observation (INO) | payer OTHER, BC, SELFPAY ==
[2021-09-07] VITALS (11 sets, daily range): BP systolic 96–144; BP diastolic 50–89; PULSE 73–82; RESP 14–18; TEMP 35.9–36.8; O2SAT 96–100; BMI 31.6; BMI 31.7
--- NOTE | 2021-09-07 04:24 | RAD_ITS ---
STUDY: X-RAY - RIGHT ANKLE REASON FOR EXAM: Female, 51 years old. Injury TECHNIQUE: 3 view(s) of the ankle. COMPARISON: None. FINDINGS: There is a comminuted splayed intra-articular fracture of the distal tibia with a gap between the posterior malleolus in the tibia measuring 4.4 mm. The lateral view demonstrates the tibias splayed over the talus. There is a widened appearance of the intraosseous space most consistent with intraosseous tear. There is a fracture of the distal fibula. There is a fracture of the medial malleolus The tibia is splayed over the talus. The visualized subtalar, talonavicular, calcaneocuboid and tarsal articulations are normal. There is soft tissue edema. RAD/Ankle min 3 Views IMPRESSION: There is a comminuted splayed intra-articular fracture of the distal tibia with a gap between the posterior malleolus in the tibia measuring 4.4 mm. There is a widened appearance of the intraosseous space most consistent with intraosseous tear. There is a fracture of the distal fibula. There is a fracture of the medial malleolus. Complex trimalleolar fracture with comminution and impaction. Electronically Signed: Cindy Meehan MD at 4:49 EDT Reading Location ID and State: [facility] [place] Tel , Service support ,
--- NOTE | 2021-09-07 04:25 | ED.VIS.LOWEX ---
HPI History of Present Illness Chief Complaint: Lower Extremity Injury Informant: patient Occured/Mechanism Comment: Walking in the dark to go to the bathroom at home, thinks she accidentally placed her right foot correction off of a step and twisted it. Onset/Context/Timing Onset: Today (JPTA) Context: Sudden Onset Timing: Continuous Quality of Pain: Aching Location: Right ankle Current Severity: Severe Maximum Severity: Severe Worsened by: Moving trying to bear weight Relieved by: Remaining still Associated Symptoms Associated Symptoms: Positive for Loss of Funtion (Unable to bear weight since injury); Negative for Parasthesia or Weakness Narrative Narrative: Patient twisted and injured her right ankle, no other injuries. Hurts throughout the ankle, no radiation or proximal pain. [facility] Medical History Generalized anxiety disorder Hypothyroidism Major depressive disorder, recurrent severe without psychotic features Narcolepsy Restless leg syndrome SARS-CoV-2 positive Home Medications dexmethylphenidate 10 mg capsule,extended release [id number] 10 mg PO 4X/DAY 05/13/20 [History Last Taken Unknown] levothyroxine 75 mcg tablet 75 mcg PO DAILY 05/13/20 [History Last Taken Unknown] pramipexole 0.125 mg tablet 0.125 mg PO TID 05/13/20 [History Last Taken Unknown] buspirone 10 mg tablet 10 mg PO BID 11/19/20 [History Last Taken Unknown] fluoxetine 20 mg capsule 100 mg PO DAILY 11/19/20 [History Last Taken Unknown] hydroxyzine HCl 25 mg tablet 10 mg PO QHS PRN Anxiety 11/19/20 [History Last Taken Unknown] multivitamin (Daily Multi-Vitamin) 1 tab PO DAILY 11/19/20 [History Last Taken Unknown] armodafinil 250 mg tablet (Nuvigil) 250 mg PO DAILY 09/07/21 [History Last Taken Unknown] carbamazepine 100 mg tablet,extended release,12 hr (Tegretol XR) 100 mg PO BID 09/07/21 [History Last Taken Unknown] dextroamphetamine-amphetamine 10 mg tablet (Adderall) 10 mg PO 4X/DAY 09/07/21 [History Last Taken Unknown] famotidine 20 mg tablet 20 mg PO QHS PRN Nausea 09/07/21 [History Last Taken Unknown] fluoxetine 40 mg capsule (Prozac) 40 mg PO DAILY 09/07/21 [History Last Taken Unknown] gabapentin 300 mg tablet 300 mg PO TID 09/07/21 [History Last Taken Unknown] ondansetron HCl 4 mg tablet 4 mg PO Q6H PRN Nausea 09/07/21 [History Last Taken Unknown] sodium oxybate 500 mg/mL oral solution 3 g PO QHS 09/07/21 [History Last Taken Unknown] Allergy/AdvReac Type Severity Reaction Status Date / Time No Known Allergies Allergy Verified 09/07/21 04:21 Social History Smoking Status: Never smoker ROS ROS ED Constitutional Constitutional ED: Denies chills or fever(s) Musculoskeletal Musculoskeletal: Reports extremity pain; Denies neck pain Integumentary Denies Abrasions, rash or wounds Neurologic Neurologic: Denies paresthesias or weakness EXAM Physical Exam Const Vital Signs: 09/07/21 04:17 09/07/21 05:00 09/07/21 05:12 Temperature 97.8 F 97.9 F Temperature Source Oral Pulse Rate 76 80 Pulse Rate [1 (Initial Baseline)] 73 Pulse Rate [2] 73 Respiratory Rate 15 16 Respiratory Rate [1 (Initial Baseline)] 16 Respiratory Rate [2] 16 Blood Pressure 130/83 H 109/88 H Blood Pressure [1 (Initial Baseline)] 113/74 Blood Pressure [2] 144/89 H Blood Pressure Mean 98 Pulse Ox 100 100 Oxygen Delivery Method Room Air Room Air Oxygen Delivery Method [1 (Initial Baseline)] Nasal Cannula Oxygen Delivery Method [2] Nasal Cannula Oxygen Flow Rate (L/min) 2 Oxygen Flow Rate (L/min) [1 (Initial Baseline)] 2 Oxygen Flow Rate (L/min) [2] 2 Fraction of Inspired Oxygen (FIO2) [1 (Initial Baseline)] 100 Fraction of Inspired Oxygen (FIO2) [2] 2 09/07/21 05:25 09/07/21 05:30 09/07/21 05:35 Temperature Temperature Source Pulse Rate Pulse Rate [1 (Initial Baseline)] Pulse Rate [2] Respiratory Rate Respiratory Rate [1 (Initial Baseline)] Respiratory Rate [2] Blood Pressure Blood Pressure [1 (Initial Baseline)] Blood Pressure [2] Blood Pressure Mean Pulse Ox Oxygen Delivery Method Room Air Room Air Room Air Oxygen Delivery Method [1 (Initial Baseline)] Oxygen Delivery Method [2] Oxygen Flow Rate (L/min) 100 Oxygen Flow Rate (L/min) [1 (Initial Baseline)] Oxygen Flow Rate (L/min) [2] Fraction of Inspired Oxygen (FIO2) [1 (Initial Baseline)] Fraction of Inspired Oxygen (FIO2) [2] Positive well nourished and well developed General Appearance ED: well developed and NAD Neck full ROM and supple Back/Spine normal ROM and normal to inspection Extremity normal to inspection Extremity Narrative: Very limited range of motion right ankle. Tender at the medial malleolus more than the lateral, no tenderness at the proximal fibula or elsewhere in the lower leg, base of the fifth metatarsal is nontender, the rest of the foot is nontender. Only deformity grossly is mild external rotation of foot on lower leg. Neuro oriented x3, no focal motor deficits and no sensory deficits noted Sensorium / Orientation: alert Psych mental status grossly normal and thought process normal Skin no wounds Rashes: no rashes MDM MDM MDM Narrative Medical decision making narrative: Three-view x-ray series of the right ankle my interpretation shows a trimalleolar fracture dislocation with anterior lateral dislocation of the distal tibia on the talus. Patient preferring conscious sedation for closed reduction and splinting, which I think is reasonable. She has been n.p.o. for over 6 hours except for the small sip of water we gave her with initial analgesics. She was then given fentanyl 50 mcg in addition to etomidate for sedation which was uneventful see the procedure note. Patient very sensitive to pain and does not think she will be able to go home with this for outpatient follow-up. Discussed with Dr. Loving, surgical plan will be for no sooner than 4 days, after the weekend. After discussing this with the patient, she wanted to try to see if she could get around with crutches without bearing weight on the right lower extremity, so we attempted with crutches but she was unable. Will admit. Radiography Diagnostic Testing: Clinical Impression(s) from Imaging Studies Ankle X-Ray 09/07/21 04:24 IMPRESSION: There is a comminuted splayed intra-articular fracture of the distal tibia with a gap between the posterior malleolus in the tibia measuring 4.4 mm. There is a widened appearance of the intraosseous space most consistent with intraosseous tear. There is a fracture of the distal fibula. There is a fracture of the medial malleolus. Complex trimalleolar fracture with comminution and impaction. Electronically Signed: Cindy Meehan MD at 4:49 EDT , Ankle X-Ray 09/07/21 05:27 IMPRESSION: Status post splinting reduction of the dislocation. Visualized fractures of the distal fibula and the posterior malleolus. The fracture of the medial malleolus is noted as well visualized as on prior. 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 No complications. Tolerated well. Pretreated with fentanyl 50 mcg for pain. Other Procedures Procedure(s): Closed reduction right ankle fracture dislocation: After procedural sedation medications took effect, I internally rotated the foot on the lower leg and manipulated the talus anteriorly, feeling good reduction and near-anatomic alignment clinically. Brisk cap refill and dorsalis pedis pulse intact afterwards. Post reduction x-rays 2 view right ankle my interpretation show improved alignment and reduction of the dislocation. Discharge Plan Dx/Rx/DC Orders Clinical Impression: Closed displaced trimalleolar fracture of right ankle Disposition Disposition: Acute Care [facility]
[2021-09-07] MEDS: Naproxen 250 MG Tablet 500 MG PO (04:29)
[2021-09-07] MEDS: traMADol 50 MG Tablet PO (04:29)
[2021-09-07] MEDS: fentaNYL 100 MCG/2 ML Ampul 50 MCG IV (05:06)
[2021-09-07] MEDS: Etomidate 20 MG/10 ML Vial 10 MG IV (05:14)
--- NOTE | 2021-09-07 05:23 | ED.RN ---
DR RAMEY CONTINUES TO FORM THE SPLINT
--- NOTE | 2021-09-07 05:27 | RAD_ITS ---
STUDY: X-RAY - RIGHT ANKLE REASON FOR EXAM: Female, 51 years old. Postreduction -- portable TECHNIQUE: 2 view(s) of the ankle. COMPARISON: September 07 right ankle x-ray 4:34 AM FINDINGS: Since the prior study there is improved alignment of the right ankle. There is a visualized fracture of the posterior malleolus and the distal right femur. There is a visualized Achilles spur. The visualized subtalar, talonavicular, calcaneocuboid and tarsal articulations are normal. There is soft tissue edema. RAD/Ankle 2 Views IMPRESSION: Status post splinting reduction of the dislocation. Visualized fractures of the distal fibula and the posterior malleolus. The fracture of the medial malleolus is noted as well visualized as on prior. Electronically Signed: Cindy Meehan MD at 6:06 EDT ,
--- NOTE | 2021-09-07 07:29 | HP.PCM.HOS_ITS ---
HPI - General General Date of Admission: 09/07/21 Date of Service: 09/07/21 Chief Complaint: Trip and fall over right ankle HPI Narrative FLORIDALMA DIALLO, is a 51 F came to the ED when she fell while going to the bathroom at home in dark. Patient said she was also half-asleep, tripped over something and fell down. She twisted her right ankle, does not remember the exact mechanism probably rolled in right ankle. She has severe pain over right ankle and lower leg, 10/10 intensity. She did not lose consciousness. She felt nauseated but no vomiting. In ED, pain is 10/10 intensity, localized to right lower leg ankle, worsened by moving, mild relieved by staying still. There is also swelling in the anterior aspect of the right ankle. X-ray of right ankle shows comminuted splayed intra-articular fracture of the distal tibia with a gap between the posterior malleolus in the tibia measuring 4.4 mm. In ED, patient had conscious reduction of right ankle under fentanyl and etomidate by ER physician. He also talked to the orthopedic surgeon Dr. Dr. Jay and he agreed to see the patient as a consult. Patient has mild improvement in pain. [facility] Medical History Generalized anxiety disorder Hypothyroidism Major depressive disorder, recurrent severe without psychotic features Narcolepsy Restless leg syndrome SARS-CoV-2 positive Home Medications dexmethylphenidate 10 mg capsule,extended release [id number] 10 mg PO 4X/DAY 05/13/20 [History Last Taken Unknown] levothyroxine 75 mcg tablet 75 mcg PO DAILY 05/13/20 [History Last Taken Unknown] pramipexole 0.125 mg tablet 0.125 mg PO TID 05/13/20 [History Last Taken Unknown] buspirone 10 mg tablet 10 mg PO BID 11/19/20 [History Last Taken Unknown] fluoxetine 20 mg capsule 100 mg PO DAILY 11/19/20 [History Last Taken Unknown] hydroxyzine HCl 25 mg tablet 10 mg PO QHS PRN Anxiety 11/19/20 [History Last Taken Unknown] multivitamin (Daily Multi-Vitamin) 1 tab PO DAILY 11/19/20 [History Last Taken Unknown] armodafinil 250 mg tablet (Nuvigil) 250 mg PO DAILY 09/07/21 [History Last Taken Unknown] carbamazepine 100 mg tablet,extended release,12 hr (Tegretol XR) 100 mg PO BID 09/07/21 [History Last Taken Unknown] dextroamphetamine-amphetamine 10 mg tablet (Adderall) 10 mg PO 4X/DAY 09/07/21 [History Last Taken Unknown] famotidine 20 mg tablet 20 mg PO QHS PRN Nausea 09/07/21 [History Last Taken Unknown] fluoxetine 40 mg capsule (Prozac) 40 mg PO DAILY 09/07/21 [History Last Taken Unknown] gabapentin 300 mg tablet 300 mg PO TID 09/07/21 [History Last Taken Unknown] ondansetron HCl 4 mg tablet 4 mg PO Q6H PRN Nausea 09/07/21 [History Last Taken Unknown] sodium oxybate 500 mg/mL oral solution 3 g PO QHS 09/07/21 [History Last Taken Unknown] Allergy/AdvReac Type Severity Reaction Status Date / Time No Known Allergies Allergy Verified 09/07/21 04:21 Social History Smoking Status: Never smoker ROS ROS Narrative Constitutional: Pain over right lower leg and ankle as described in HPI. HEENT: Reports systems reviewed and no addt'l complaints, except as documented Respiratory/Chest: Denies chest pain, shortness of breath at rest or with exertion Gastrointestinal: Denies coffee ground emesis, hematemesis or vomiting Genitourinary: Denies burning urination or new urinary tract symptoms Musculoskeletal: Severe pain in right ankle. ROM severely limited. 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 No rash Endocrinology: Reports systems reviewed and no addt'l complaints, except as documented Hematologic/Lymphatic: Reports systems reviewed and no addt'l complaints, except as documented Rest 14 ROS are negative except as mentioned in HPI Vital Signs Vital Signs Vital Signs: 09/07/21 04:17 09/07/21 05:00 09/07/21 05:12 Temperature 97.8 F 97.9 F Temperature Source Oral Pulse Rate 76 80 Pulse Rate [1 (Initial Baseline)] 73 Pulse Rate [2] 73 Respiratory Rate 15 16 Respiratory Rate [1 (Initial Baseline)] 16 Respiratory Rate [2] 16 Blood Pressure 130/83 H 109/88 H Blood Pressure [1 (Initial Baseline)] 113/74 Blood Pressure [2] 144/89 H Blood Pressure Mean 98 Pulse Ox 100 100 Oxygen Delivery Method Room Air Room Air Oxygen Delivery Method [1 (Initial Baseline)] Nasal Cannula Oxygen Delivery Method [2] Nasal Cannula Oxygen Flow Rate (L/min) 2 Oxygen Flow Rate (L/min) [1 (Initial Baseline)] 2 Oxygen Flow Rate (L/min) [2] 2 Fraction of Inspired Oxygen (FIO2) [1 (Initial Baseline)] 100 Fraction of Inspired Oxygen (FIO2) [2] 2 09/07/21 05:25 09/07/21 05:30 09/07/21 05:35 Temperature Temperature Source Pulse Rate Pulse Rate [1 (Initial Baseline)] Pulse Rate [2] Respiratory Rate Respiratory Rate [1 (Initial Baseline)] Respiratory Rate [2] Blood Pressure Blood Pressure [1 (Initial Baseline)] Blood Pressure [2] Blood Pressure Mean Pulse Ox Oxygen Delivery Method Room Air Room Air Room Air Oxygen Delivery Method [1 (Initial Baseline)] Oxygen Delivery Method [2] Oxygen Flow Rate (L/min) 100 Oxygen Flow Rate (L/min) [1 (Initial Baseline)] Oxygen Flow Rate (L/min) [2] Fraction of Inspired Oxygen (FIO2) [1 (Initial Baseline)] Fraction of Inspired Oxygen (FIO2) [2] Weight Weight: 167 lb 8.821 oz Body Mass Index (BMI) 31.6 Results Lab / Micro Data Result Diagrams: 09/07/21 07:47 09/07/21 07:47 Radiology Impression Ankle X-Ray 09/07/21 04:24 IMPRESSION: There is a comminuted splayed intra-articular fracture of the distal tibia with a gap between the posterior malleolus in the tibia measuring 4.4 mm. There is a widened appearance of the intraosseous space most consistent with intraosseous tear. There is a fracture of the distal fibula. There is a fracture of the medial malleolus. Complex trimalleolar fracture with comminution and impaction. Electronically Signed: Cindy Meehan MD at 4:49 EDT , Ankle X-Ray 09/07/21 05:27 IMPRESSION: Status post splinting reduction of the dislocation. Visualized fractures of the distal fibula and the posterior malleolus. The fracture of the medial malleolus is noted as well visualized as on prior. Electronically Signed: Cindy Meehan MD at 6:06 EDT Reading Location ID and State: [facility] / [place] Tel , Service support , Assessment & Plan Assessment/Plan (1) Closed displaced trimalleolar fracture of right ankle: PLAN: 1. Closed comminuted displaced complex right ankle trimalleolar fracture with impaction: X-ray of right ankle reviewed before reduction after reduction. Patient is being admitted on [facility] floor for pain control, PT and OT. Orthopedic surgeon Dr. Evans is consulted. Nonweightbearing on right ankle. Plan of care discussed with the patient's at the bedside. His after the swelling subsides. 2. Hypothyroidism: TSH tomorrow AM. Continue home dose of thyroxine. 3. Anxiety and depression: Patient on multiple antipsychotic medications. She is on fluoxetine, Adderall, Tegretol-XR, buspirone. Needs home medication reconciliation from the patient's pharmacy. 4. VTE prophylaxis: Lovenox 40 mg subcu daily. Discontinue if platelet count drops less than 50,000 or hemoglobin less than 8 g% Living will/advanced directive/end of life care: Patient does not have living will or advanced directive. After discussion of benefits/risks procedures involved with full code, DNR CC arrest and DNR CC, the patient has been opted for full code. Patient does want artificial life support including intubation, tube feed, ventilator and/chest compression, central venous catheter, vasopressor and DC shock if needed Total time spent in [id number] encounter in discussion of advanced directive 16 minutes. Charges/Coding Visit Charges OBSV E&M: 60705 Initial observation care L3 Procedures Hospitalists Procedures: 54105 Advncd Care Plan 30 Min
[2021-09-07 07:55] LABS: Absolute Lymphocyte Count 1.13 X10^3/uL (0.83-4.51); Absolute Neutrophil Count 8.7 X10^3/uL (2.0-7.7); Basophil% 0.9 % (0-1); Eosinophil# 0.13 X10^3/uL; Eosinophils% 1.2 % (0-5); Hematocrit 37.3 % (37-47); Hemoglobin 12.2 g/dL (12.0-15.0); Lymphocyte # 1.13 X10^3/ul (0.83-4.51); Lymphocyte % 10.5 % (19-41); Mean Corp Hgb Conc 32.7 g/dL (32-36); Mean Corpuscular Hgb 28.6 pg (27.0-32.0); Mean Corpuscular Volume 87.4 fL (81-99); Mean Platelet Vol. 9.1 fl (6.2-12.0); Monocyte# 0.69 X10^3/uL; Monocyte% 6.4 % (0-10); NRBC Flagged by Analyzer 0 % (0-5); Neutrophil # 8.66 X10^3/uL (2.7-7.7); Neutrophil % 80.6 % (47-70); Platelet Count 341 K/mm3 (150-450); RBC Distribution Width CV 12.1 % (11.6-14.6); RBC Distribution Width SD 38.7 fl (35.1-43.9); Red Blood Count 4.27 M/mm3 (4.2-5.4); White Blood Count 10.8 K/mm3 (4.4-11.0)
[2021-09-07 08:12] LABS: ALB/GLOB Ratio 1.3 RATIO (0.9-2.4); AST(SGOT) 15 U/L (15-37); Alanine Aminotransfer ALT/SGPT 25 U/L (13-56); Albumin, Serum 3.9 g/dL (3.2-5.0); Alkaline Phosphatase 96 U/L (45-117); Anion Gap 5 (5-15); BUN 17 mg/dL (7-18); BUN/Creat Ratio 26.3 RATIO (10-20); Calcium,Total 8.9 mg/dL (8.5-10.1); Chloride 103 mmol/L (98-107); Creatinine, Serum 0.65 mg/dL (0.55-1.02); EST Glomerular Filtration Rate 102 mL/min (>60); Est Glom Filt Rate - Afr Amer 123 mL/min (>60); Estimated Creatinine Clearance 75.53 ml/min; Globulin 2.9 g/dL (2.2-4.2); Glucose 104 mg/dL (74-106); Magnesium 2.4 mg/dL (1.6-2.6); Potassium 4.2 mmol/L (3.5-5.1); Protein, Total 6.8 g/dL (6.4-8.2); Sodium Level 136 mmol/L (136-145)
[2021-09-07] MEDS: HYDROmorphone 0.5 MG/0.5 ML SYRINGE IV ×2 (08:34→20:29)
--- NOTE | 2021-09-07 09:08 | EKG12_ITS ---
Test Reason : AM EKG Blood Pressure : / mmHG Vent. Rate : 078 BPM Atrial Rate : 078 BPM P-R Int : 148 ms QRS Dur : 072 ms QT Int : 390 ms P-R-T Axes : 058 012 040 degrees QTc Int : 444 ms Normal sinus rhythm Low voltage QRS Borderline ECG When compared with ECG of 08-SEP-2021 05:19, MANUAL COMPARISON REQUIRED, DATA IS UNCONFIRMED Confirmed by HUBER PABON, LUCY ([id number]), online editor MICHAEL SNOW ([id number]) on 09/11/2021 8:49:01 AM Referred By: ALISHA Confirmed By:LUCY NGO MD
[2021-09-07] MEDS: Levothyroxine 75 MCG Tablet PO (10:11)
[2021-09-07] MEDS: Multivitamins,Therapeutic Tablet 1 TABLET PO (10:12)
[2021-09-07] MEDS: Gabapentin 300 MG Capsule PO ×3 (10:12→21:22)
[2021-09-07] MEDS: Enoxaparin 40 MG/0.4 ML Syringe SC (10:12)
[2021-09-07] MEDS: Lactated Ringers 1,000 ML 100 ML IV (10:12)
[2021-09-07] MEDS: oxyCODONE 5 MG Tablet PO ×3 (10:13→23:46)
[2021-09-07] MEDS: Senna/Docusate Sodium 1 Tablet 2 TABLET PO ×2 (10:13→21:20)
--- NOTE | 2021-09-07 10:38 | NURSING ---
TC and message left for Ilia to call this nurse back regarding medications that pharmacy does not have in their supply. Will wait for call back.
[2021-09-07] MEDS: Pramipexole Di-HCl 0.125 MG Tablet PO ×2 (15:13→21:20)
[2021-09-07] MEDS: FLUoxetine 20 MG Capsule PO (15:13)
--- NOTE | 2021-09-07 17:00 | CASEMGMT ---
RN FAYE ACQUISITIONS LIBRARIAN CM to room to meet with patient for initial transition planning/care coordination assessment. RN FAYE introduced self and role at [facility].? Pt voices understanding and consents to assessment at this time.? Pt resting in bed in no distress at this time.?Dtr's @ bedside. Pt agreeable to them being present during assessment. Pt is A/O at this time and answers all questions appropriately.?? Care providers, pharmacy, and demographics verified/updated at this time. PCP: Dr Rubi Specialists: Dr Marie-[facility] psychiatry, Dr Olsen--[facility] neurology Preferred Pharmacy: [facility] Insurance: [employer] Prescription Benefit:?Yes Living Will/HPOA:?Has both LW and HPOA, who is her , Ilia LNOK: , Ilia Living Arrangements: Lives w/ in one-story home w/3 steps to enter. Dtr's live there when not in school. One step to living room. Independent prior to injury/hospitalization. Works full-time. Pt states her took a week off of work to be able to stay home to help. Parents can also assist. Transportation:?Pt, , parents DME: Pt has no DME @ home. Would like a walker. Provided w/list of local DME providers. Pt has no preference and agreeable to [employer]. Script placed on chart, awaiting doctor signature. Pt also inquired about BSC and knee scooter. Made aware knee scooter is not covered by insurance. Questions answered. Discussed options/places these can be purchased over the weekend. HHC/SNF: No hx of either. Pt wishes to return home and states has no concerns with going home at time of discharge.? CM to follow for any further discharge planning/needs.? Pt voices no further concerns/needs at this time.? Advised pt to ask for CM if any further questions/concerns/needs arise.? Voices understanding. PLAN:??Home. Green sheet on chart w/instructions to obtain walker prior to discharge. Script on chart and awaiting doctor signature. Rabia BSN KEANU MCKINNEY
[2021-09-07] MEDS: Acetaminophen 325 MG Tablet 650 MG PO (18:42)
[2021-09-07] MEDS: carBAMazepine 400 MG TAB.SR.12H PO (21:19)
[2021-09-08 04:14] VITALS: BP 107/67; PULSE 67; RESP 16; TEMP 36.7; O2SAT 96
[2021-09-08] MEDS: Levothyroxine 75 MCG Tablet PO (05:33)
[2021-09-08] MEDS: Pramipexole Di-HCl 0.125 MG Tablet PO ×3 (05:33→21:30)
[2021-09-08] MEDS: Gabapentin 300 MG Capsule PO ×3 (05:33→21:24)
--- NOTE | 2021-09-08 05:55 | EKG12_ITS ---
Test Reason : DYSARYTHMIA Blood Pressure : / mmHG Vent. Rate : 075 BPM Atrial Rate : 075 BPM P-R Int : 146 ms QRS Dur : 072 ms QT Int : 430 ms P-R-T Axes : 028 -01 024 degrees QTc Int : 480 ms Normal sinus rhythm Prolonged QT Abnormal ECG When compared with ECG of 13-MAY-2020 11:39, No significant change was found Confirmed by HUBER PABON, LUCY ([id number]), communications editor MICHAEL SNOW ([id number]) on 09/11/2021 8:49:49 AM Referred By: ALISHA Confirmed By:LUCY NGO MD
[2021-09-08 06:30] LABS: Absolute Lymphocyte Count 1.51 X10^3/uL (0.83-4.51); Absolute Neutrophil Count 3.8 X10^3/uL (2.0-7.7); Basophil# 0.09 X10^3/uL; Basophil% 1.4 % (0-1); Eosinophil# 0.29 X10^3/uL; Eosinophils% 4.5 % (0-5); Hematocrit 35.4 % (37-47); Hemoglobin 11.3 g/dL (12.0-15.0); Lymphocyte # 1.51 X10^3/ul (0.83-4.51); Lymphocyte % 23.7 % (19-41); Mean Corp Hgb Conc 31.9 g/dL (32-36); Mean Corpuscular Hgb 28.8 pg (27.0-32.0); Mean Corpuscular Volume 90.1 fL (81-99); Mean Platelet Vol. 9.3 fl (6.2-12.0); NRBC Flagged by Analyzer 0 % (0-5); Neutrophil # 3.77 X10^3/uL (2.7-7.7); Neutrophil % 59.1 % (47-70); Platelet Count 334 K/mm3 (150-450); RBC Distribution Width CV 12.3 % (11.6-14.6); RBC Distribution Width SD 40.3 fl (35.1-43.9); Red Blood Count 3.93 M/mm3 (4.2-5.4); White Blood Count 6.4 K/mm3 (4.4-11.0)
[2021-09-08] MEDS: oxyCODONE 5 MG Tablet PO ×4 (06:45→20:23)
[2021-09-08 07:04] LABS: Anion Gap 5 (5-15); BUN 11 mg/dL (7-18); BUN/Creat Ratio 22.7 RATIO (10-20); Calcium,Total 8.6 mg/dL (8.5-10.1); Chloride 107 mmol/L (98-107); Creatinine, Serum 0.48 mg/dL (0.55-1.02); EST Glomerular Filtration Rate 142 mL/min (>60); Est Glom Filt Rate - Afr Amer 172 mL/min (>60); Estimated Creatinine Clearance 102.28 ml/min; Glucose 98 mg/dL (74-106); Potassium 4.1 mmol/L (3.5-5.1); Sodium Level 140 mmol/L (136-145); Thyroid Stim Hormone (TSH) 3.79 uIU/mL (0.358-3.74)
[2021-09-08 07:40] VITALS: O2SAT 95
[2021-09-08 09:23] VITALS: BP 105/76; PULSE 85; RESP 16; TEMP 36.9; O2SAT 100
[2021-09-08] MEDS: HYDROmorphone 0.5 MG/0.5 ML SYRINGE IV ×2 (09:39→18:19)
[2021-09-08] MEDS: Multivitamins,Therapeutic Tablet 1 TABLET PO (09:40)
[2021-09-08] MEDS: Senna/Docusate Sodium 1 Tablet 2 TABLET PO ×2 (09:40→21:26)
[2021-09-08] MEDS: FLUoxetine 20 MG Capsule PO (09:40)
[2021-09-08] MEDS: Enoxaparin 40 MG/0.4 ML Syringe SC (09:40)
[2021-09-08] MEDS: 0.9% Saline Lock 10 ML Syringe IV ×2 (09:40→18:19)
[2021-09-08] MEDS: carBAMazepine 400 MG TAB.SR.12H PO ×2 (09:41→21:25)
[2021-09-08] MEDS: ARMODAFINIL 250 MG TABLET PO (09:49)
--- NOTE | 2021-09-08 13:49 | CASEMGMT ---
KEANU MCKINNEY NOTE: Scripts obtained for Walker and BSC. Script for walker placed on chart. KEANU MCKINNEY to room. Provided pt w/script for BSC and informed some insurances will cover for BSC. @ bedside states he was able to borrow a BSC from a friend and they also now have a walker available, but he is not sure if it has wheels on it. Pt to be provided w/wheeled walker @ d/c if it is needed. She is aware and to notify staff. states they will still take the script for BSC, just in case they need it. Pt denies having any other discharge planning needs or concerns. Rabia BSN KEANU CM
[2021-09-08 13:59] VITALS: BP 112/64; PULSE 89; RESP 16; TEMP 36.8; O2SAT 97
[2021-09-08] MEDS: Acetaminophen 325 MG Tablet 650 MG PO (14:00)
--- NOTE | 2021-09-08 14:21 | PCM.PN.HOSP ---
Subjective Subjective Follow-up for right trimalleolar fracture Patient is still has 8/10 severe right lower leg pain. Objective Data Objective Data Vital Signs: Vital Signs Temp Pulse Resp BP Pulse Ox FiO2 98.2 F 89 16 112/64 97 100 09/08/21 13:59 09/08/21 13:59 09/08/21 13:59 09/08/21 13:59 09/08/21 13:59 09/07/21 05:12 Oxygen Flow Rate (L/min) [2] 2 Oxygen Flow Rate (L/min) [1 ( 2 Initial Baseline)] Oxygen Flow Rate (L/min) 100 Oxygen Delivery Method [2] Nasal Cannula Oxygen Delivery Method [1 ( Nasal Cannula Initial Baseline)] Oxygen Delivery Method Room Air Weight: 167 lb 14.4 oz Body Mass Index (BMI) 31.7 Intake & Output: Intake and Output for Last 24 Hours 09/06/21 09/07/21 09/08/21 23:59 23:59 23:59 Intake Total 1240 / 1240 1000 / 1000 Balance 1240 / 1240 1000 / 1000 Lab / Micro Data Result Diagrams: 09/08/21 06:08 09/08/21 06:08 Labs: Laboratory Results - last 24 hr 09/08/21 06:08: WBC 6.4, RBC 3.93 L, Hgb 11.3 L, Hct 35.4 L, MCV 90.1, MCH 28.8, MCHC 31.9 L, RDW Std Deviation 40.3, RDW Coeff of Rayne 12.3, Plt Count 334, MPV 9.3, Immature Gran % (Auto) 0.300, Neut % (Auto) 59.1, Lymph % (Auto) 23.7, [place] % (Auto) 11.0 H, Eos % (Auto) 4.5, Baso % (Auto) 1.4 H, Absolute Neuts (auto) 3.8, Absolute Lymphs (auto) 1.51, Nucleated RBC % 0 09/08/21 06:08: Sodium 140, Potassium 4.1, Chloride 107, Carbon Dioxide 28.0, Anion Gap 5, BUN 11, Creatinine 0.48 L, Estim Creat Clear Calc 102.28, Est GFR (MDRD) Af Amer 172, Est GFR (MDRD) Non-Af 142, BUN/Creatinine Ratio 22.7 H, Glucose 98, Calcium 8.6, TSH 3.79 H Physical Exam Narrative Physical exam General: Alert, Oriented x3, Cooperative HEENT: Atraumatic, PERRLA, EOMI, Normocephalic Oral: No Gingival or Mucosal Lesions/ Ulcerations Neck: Supple, No JVD, Negative Carotid Bruits Lungs: Air entry diminished in bilateral lung bases. No crepitation/rhonchi Cardiovascular: Regular rate, Regular Rhythm, Normal S1, Normal S2, No murmurs Abdomen: Bowel Sounds Present, Soft, Non Tender, Non-Distended : No renal angle tenderness. No suprapubic tenderness. Extremities: No edema, Capillary Refill Less than 3 Seconds Skin: No rashes, No breakdown Musculoskeletal: Addison wrap bandage below right ankle up to 4 feet. Tenderness present all around the ankle. No weightbearing on right leg. Neurological: Cranial nerves II-XII grossly intact, DTR 2+/4 and Symmetrical, Neuro grossly intact Psych/Mental Status: Normal Affect, Appropriate. Assessment & Plan Assessment/Plan (1) Closed displaced trimalleolar fracture of right ankle: PLAN: 1. Closed comminuted displaced complex right ankle trimalleolar fracture with impaction: X-ray of right ankle reviewed before reduction after reduction. Patient is being admitted on Medr floor for pain control, PT and OT. Orthopedic surgeon Dr. Jay is consulted from ED. Nonweightbearing on right ankle. Plan of care discussed with the patient's at the bedside. 09/08: Patient is still has severe pain 8-9/10 for right ankle and swelling. Needs continued pain medication. 2. Hypothyroidism: TSH 3.79. Continue home dose of thyroxine. 3. Anxiety and depression: Patient on multiple antipsychotic medications. She is on fluoxetine, Adderall, Tegretol-XR, buspirone. Needs home medication reconciliation from the patient's pharmacy. 4. VTE prophylaxis: Lovenox 40 mg subcu daily. Discontinue if platelet count drops less than 50,000 or hemoglobin less than 8 g% Living will/advanced directive/end of life care: Patient does not have living will or advanced directive. After discussion of benefits/risks procedures involved with full code, DNR CC arrest and DNR CC, the patient has been opted for full code. Patient does want artificial life support including intubation, tube feed, ventilator and/chest compression, central venous catheter, vasopressor and DC shock if needed Total time spent in [id number] encounter in discussion of advanced directive 16 minutes. Charges/Coding Visit Charges OBSV E&M: 06100 Subsequent observation care L2
[2021-09-08 18:17] VITALS: BP 111/63; PULSE 86; RESP 16; TEMP 36.7; O2SAT 93
[2021-09-09 00:07] VITALS: BP 105/67; PULSE 87; RESP 16; TEMP 36.9; O2SAT 93
[2021-09-09] MEDS: oxyCODONE 5 MG Tablet PO ×3 (01:11→10:08)
[2021-09-09] MEDS: Levothyroxine 75 MCG Tablet PO (05:15)
[2021-09-09] MEDS: Gabapentin 300 MG Capsule PO (05:15)
[2021-09-09] MEDS: Pramipexole Di-HCl 0.125 MG Tablet PO (05:15)
[2021-09-09 05:19] VITALS: BP 110/67; PULSE 91; RESP 16; TEMP 37; O2SAT 95
--- NOTE | 2021-09-09 05:55 | EKG12_ITS ---
Test Reason : AM EKG Blood Pressure : / mmHG Vent. Rate : 069 BPM Atrial Rate : 069 BPM P-R Int : 154 ms QRS Dur : 072 ms QT Int : 426 ms P-R-T Axes : 052 008 034 degrees QTc Int : 456 ms Normal sinus rhythm Normal ECG When compared with ECG of 07-SEP-2021 09:54, MANUAL COMPARISON REQUIRED, DATA IS UNCONFIRMED Confirmed by HUBER PABON, LUCY ([id number]), map editor MICHAEL SNOW ([id number]) on 09/11/2021 8:52:11 AM Referred By: ALISHA Confirmed By:LUCY NGO MD
[2021-09-09 08:39] VITALS: BP 120/62; PULSE 103; RESP 16; TEMP 36.9; O2SAT 92
[2021-09-09] MEDS: Senna/Docusate Sodium 1 Tablet 2 TABLET PO (08:44)
[2021-09-09] MEDS: Enoxaparin 40 MG/0.4 ML Syringe SC (08:44)
[2021-09-09] MEDS: FLUoxetine 20 MG Capsule PO (08:44)
[2021-09-09] MEDS: Multivitamins,Therapeutic Tablet 1 TABLET PO (08:44)
[2021-09-09] MEDS: carBAMazepine 400 MG TAB.SR.12H PO (08:45)
--- NOTE | 2021-09-09 10:08 | DCINST_ITS ---
Discharge Instructions Diet Discharge Diet: No restrictions Activity Discharge Activity: Use Walker (Non-weight bearing on right leg) Weight Bearing Status: No weight bearing (on right leg) Dressing / Incision Call your doctor if you observe: Fever of 101 or Higher and Swelling in the ankles Follow Up Care Test Results: Test results from this visit will be discussed in further detail at your follow- up appointment, if applicable. Discharge Plan Admission Admit Date/Time: 09/07/21 07:23 Primary Reason for Your Visit: Acute right trimalleolar fracture Attending Provider: Lizzeth Moses Primary Care Provider: Alba Rubi Consulting Providers: Michael Jay ; Boni Cotton Instructions Additional Instructions / Restrictions: Continue to ambulate with a walker. Nonweightbearing. Follow-up with Ortho -Dr. Mooney tomorrow Friday09/10/21 in the office. Take note of change in your Prozac dose. This was to prevent an arrhythmia per EKG done in the hospital. Discharge Orders/Prescriptions Prescriptions: New fluoxetine 20 mg Capsule 20 mg PO DAILY 30 Days Qty: 30 0RF sennosides-docusate sodium [Stool Softener-Stimulant Laxat] 8.6-50 mg Tablet 2 tab PO BID 14 Days Qty: 56 0RF oxycodone 5 mg Tablet 5 mg PO Q4H PRN PRN (Reason: Pain Score 4-10) 3 Days Qty: 12 0RF Continued multivitamin [Daily Multi-Vitamin] Tablet 1 tab PO DAILY levothyroxine 75 MCG tablet 75 mcg PO DAILY pramipexole 0.125 MG tablet 0.125 mg PO TID carbamazepine [Tegretol XR] 100 mg Tablet Extended Release 12 Hr 400 mg PO BID ondansetron HCl 4 mg Tablet 4 mg PO Q6H PRN (Reason: Nausea) dextroamphetamine-amphetamine [Adderall] 10 mg Tablet 10 mg PO 4X/DAY Rx Instructions: administer doses at least 4-6 hours apart famotidine 20 mg Tablet 20 mg PO QHS PRN (Reason: acid reflex) sodium oxybate 500 mg/mL Solution 3 g PO QHS Rx Instructions: administer the first dose at bedtime and the second dose 2.5-4 hours later--4 GRAMS gabapentin 300 mg Tablet 300 mg PO TID armodafinil [Nuvigil] 250 mg Tablet 250 mg PO DAILY sodium oxybate 500 mg/mL Solution 4 g PO QHS Rx Instructions: 3 hrs after first 3.0 gram dose hydroxyzine HCl 10 mg Tablet 10 mg PO BID PRN (Reason: Anxiety) Discontinued fluoxetine [Prozac] 40 mg Capsule 100 mg PO DAILY Rx Instructions: takes 2-40mg capsule plus a 20mg capsule for total of 100mg Referrals / Follow Up: Alba Rubi MD [Primary Care Provider] - In 1 Week Mendoza Mooney DO [STAFF PHYSICIAN] - See Referral Note (On Friday09/10/21 in the office) Disposition Disposition (needs filled in before D/C Order can be placed): Home, Self Care
[2021-09-09] MEDS: ARMODAFINIL 250 MG TABLET PO (10:09)
--- NOTE | 2021-09-09 10:19 | DS.PCM_ITS ---
Providers Date of Admission: 09/07/21 Primary Care Physician: Dr. Alba Rubi MD Consultations 09/07/21 08:22 Consult: Orthopedics Routine Consulting Provider: Michael Jay Reason for Consult: right ankle trimalleolar fracture EMERGENT Consult: No MD Notified: Yes Date Notified: 09/07/21 Time Notified: 07:28 Method of Notification: ED Physician Initiated Reason For Visit: RIGHT ANKLE COMPLEX TRIMALLEOLAR FRACTURE Diagnosis Discharge Diagnosis (1) Closed displaced trimalleolar fracture of right ankle: Status: Acute Code(s): S82.851A - Displaced trimalleolar fracture of right lower leg, initial encounter for closed fracture Medications at Discharge Home Medications levothyroxine 75 mcg tablet 75 mcg PO DAILY 05/13/20 pramipexole 0.125 mg tablet 0.125 mg PO TID 05/13/20 multivitamin (Daily Multi-Vitamin) 1 tab PO DAILY 11/19/20 armodafinil 250 mg tablet (Nuvigil) 250 mg PO DAILY 09/07/21 carbamazepine 100 mg tablet,extended release,12 hr (Tegretol XR) 400 mg PO BID 09/07/21 dextroamphetamine-amphetamine 10 mg tablet (Adderall) 10 mg PO 4X/DAY 09/07/21 famotidine 20 mg tablet 20 mg PO QHS PRN acid reflex 09/07/21 gabapentin 300 mg tablet 300 mg PO TID 09/07/21 hydroxyzine HCl 10 mg tablet 10 mg PO BID PRN Anxiety 09/07/21 ondansetron HCl 4 mg tablet 4 mg PO Q6H PRN Nausea 09/07/21 sodium oxybate 500 mg/mL oral solution 3 g PO QHS 09/07/21 sodium oxybate 500 mg/mL oral solution 4 g PO QHS 09/07/21 fluoxetine 20 mg capsule 20 mg PO DAILY 30 days #30 caps 09/09/21 oxycodone 5 mg tablet 5 mg PO Q4H PRN PRN Pain Score 4-10 3 days #12 tabs 09/09/21 sennosides 8.6 mg-docusate sodium 50 mg tablet (Stool Softener-Stimulant Laxat gopi) 2 tab PO BID 2 weeks #56 tabs 09/09/21 Hospital Course Operations None Procedures None Summary of Care Provided Minutes Spent on Discharge: 40 Hospital Course: 51-year-old female past medical history of anxiety/depression, narcolepsy, restless leg syndrome who comes in after a fall. Patient stated that she tripped while going to the bathroom. It was dark. She says she was probably half-asleep and tripped over something and fell. She twisted her right ankle. X-ray of the ankle showed acute comminuted displaced intra-articular fracture of the distal tibia, fibula and medial malleolus. This was reduced in the emergency room. Postreduction x-rays showed improved alignment and reduction of dislocation. Orthopedic surgery was consulted from the ED. Recommended follow- up in the outpatient in 4 days to allow the swelling to go down. Patient likely will need surgery. Patient was unable to bear weight in the ED. She was admitted for pain control. During that hospital stay, patient was found to be on multiple psychotropic medications. Her QTC was slightly elevated. Her Prozac was decreased to 20 mg daily. Patient expressed no worsening symptoms. QTC on 09/09/21 was 444. Patient was discharged on Prozac 20 mg daily and will follow up with her primary care doctor. She was seen by PT and OT recommended nonweightbearing and use of walker. Prescriptions for walker and bedside commode were given to the . Patient to follow-up with orthopedics?Dr. Mooney on 09/10/21, in the office. She was given a prescription for pain medication. Physical Exam Narrative Physical exam: General: Alert, Oriented x3, Cooperative, No apparent distress HEENT: Atraumatic Oral: Moist Mucosa Neck: Supple Lungs: Clear to auscultation Cardiovascular: HS I+II, regular, no murmurs Abdomen: Bowel Sounds Present, Soft, Non Tender Extremities: Swelling of the right lower leg, Addison wrap to the mid leg, patient is able to wiggle the toes. Weight / BMI Weight Weight: 76.158 kg Body Mass Index (BMI) 31.7 ABG / Lab / Microbiology Data Result Diagrams: 09/08/21 06:08 09/08/21 06:08 D/C Instructions Discharge Diet: No restrictions Weight Bearing Status: No weight bearing (on right leg) Call your doctor if you observe: Fever of 101 or Higher and Swelling in the ankles Meaningful Use Info Meaningful Use Diagnoses (Choose all that apply): None applicable Discharge Plan Admission Admit Date/Time: 09/07/21 07:23 Primary Reason for Your Visit: Acute right trimalleolar fracture Attending Provider: Lizzeth Moses Primary Care Provider: Alba Rubi Consulting Providers: Michael Jay ; Boni Cotton Instructions Additional Instructions / Restrictions: Continue to ambulate with a walker. Nonweightbearing. Follow-up with Ortho -Dr. Mooney tomorrow Friday09/10/21 in the office. Take note of change in your Prozac dose. This was to prevent an arrhythmia per EKG done in the hospital. Discharge Orders/Prescriptions Prescriptions: New fluoxetine 20 mg Capsule 20 mg PO DAILY 30 Days Qty: 30 0RF sennosides-docusate sodium [Stool Softener-Stimulant Laxat] 8.6-50 mg Tablet 2 tab PO BID 14 Days Qty: 56 0RF oxycodone 5 mg Tablet 5 mg PO Q4H PRN PRN (Reason: Pain Score 4-10) 3 Days Qty: 12 0RF Continued multivitamin [Daily Multi-Vitamin] Tablet 1 tab PO DAILY levothyroxine 75 MCG tablet 75 mcg PO DAILY pramipexole 0.125 MG tablet 0.125 mg PO TID carbamazepine [Tegretol XR] 100 mg Tablet Extended Release 12 Hr 400 mg PO BID ondansetron HCl 4 mg Tablet 4 mg PO Q6H PRN (Reason: Nausea) dextroamphetamine-amphetamine [Adderall] 10 mg Tablet 10 mg PO 4X/DAY Rx Instructions: administer doses at least 4-6 hours apart famotidine 20 mg Tablet 20 mg PO QHS PRN (Reason: acid reflex) sodium oxybate 500 mg/mL Solution 3 g PO QHS Rx Instructions: administer the first dose at bedtime and the second dose 2.5-4 hours later--4 GRAMS gabapentin 300 mg Tablet 300 mg PO TID armodafinil [Nuvigil] 250 mg Tablet 250 mg PO DAILY sodium oxybate 500 mg/mL Solution 4 g PO QHS Rx Instructions: 3 hrs after first 3.0 gram dose hydroxyzine HCl 10 mg Tablet 10 mg PO BID PRN (Reason: Anxiety) Discontinued fluoxetine [Prozac] 40 mg Capsule 100 mg PO DAILY Rx Instructions: takes 2-40mg capsule plus a 20mg capsule for total of 100mg Referrals / Follow Up: Alba Rubi MD [Primary Care Provider] - In 1 Week Mendoza Mooney DO [STAFF PHYSICIAN] - See Referral Note (On Friday09/10/21 in the office) Disposition Disposition (needs filled in before D/C Order can be placed): Home, Self Care Charges/Coding Visit Charges Inpatient E&M: 60103 Disch Hosp
[2021-09-09 11:22] VITALS: BP 116/63; PULSE 95; RESP 16; TEMP 36.7; O2SAT 93
== END 2021-09-09 12:15 | disposition home or self-care (01) ==
LOC: ED 05:40 → MS3 07:55
PROVIDERS: Admitting Provider Internal Medicine; Emergency Provider Emergency Medicine; PCP Internal Medicine; Visit Provider Internal Medicine
DX: S82.851A Displaced trimalleolar fracture of right lower leg, initial encounter for closed fracture (principal); F33.9 Major depressive disorder, recurrent, unspecified; U07.1 COVID-19; W17.89XA Other fall from one level to another, initial encounter; F41.1 Generalized anxiety disorder; G25.81 Restless legs syndrome; Z79.899 Other long term (current) drug therapy; Y93.89 Activity, other specified; Y99.9 Unspecified external cause status; Y92.009 Unspecified place in unspecified non-institutional (private) residence as the place of occurrence of the external cause; E03.9 Hypothyroidism, unspecified; Z79.890 Hormone replacement therapy
CPT/HCPCS: 27816; 36415; 73600; 73610; 80048; 80053; 83735; 84443; 85025; 93005; 96361; 96372; 96374; 96375; 96376; 97116; 97161; 97166; 97530; 97535; 97802; 99218; 99251; 99284; J7030; J7120; A4216; G0378; G0463

== ENCOUNTER → 2021-09-11 | Outpatient (CLI) | payer OTHER, BC, SELFPAY ==
--- NOTE | 2021-09-11 12:49 | CT_ITS ---
STUDY: CT RIGHT ANKLE WITHOUT CONTRAST REASON FOR EXAM: Right ankle injury last Friday, trimalleolar fracture. TECHNIQUE: Thin section transaxial imaging of the ankle was obtained, with sagittal and coronal reconstructed images. Individualized dose optimization techniques were used for this CT. COMPARISON: Radiographs 09/07/2021. FINDINGS: There is an oblique fracture of the distal fibular diaphysis extending to the level of the tibiotalar articulation with posterior displacement of approximately 0.3 cm (sagittal reconstructions 27-30). There is a medial malleolar fracture with a maximal articular step-off of approximately 0.2 cm (coronal reconstructions 26-33). There is a posterior malleolar fracture with only slight displacement (sagittal reconstructions 18-23). There is widening of the medial clear space (coronal reconstruction 34) and a tibiotalar joint effusion. There is a small posterior calcaneal enthesophyte. There is a small os trigonum. Normal talus, navicular and cuboid tarsal bones. Normal subtalar, talonavicular and calcaneocuboid articulations. Normal navicular-cuneiform, cuneiform tarsal bones and intercuneiform articulations. Normal tarsometatarsal articulations and visualized metatarsi. There is soft tissue swelling. CT/Extremity Lower without Contra IMPRESSION: Trimalleolar fracture. Widening of the medial clear space. Tibiotalar joint effusion. Electronically Signed: Oleg Dela Cruz MD at 14:47 EDT ,
== END | disposition home or self-care (01) ==
LOC: CT 12:44
PROVIDERS: PCP Internal Medicine; Referring Provider Student in an Organized Health Care Education/Training Program; Visit Provider Student in an Organized Health Care Education/Training Program
DX: S82.851A Displaced trimalleolar fracture of right lower leg, initial encounter for closed fracture (principal)
CPT/HCPCS: 73700

== ENCOUNTER 2021-09-13 07:48 | Day surgery (SDC) | payer OTHER, BC, SELFPAY ==
--- NOTE | 2021-09-11 12:50 | RAD_ITS ---
STUDY: X-RAY CHEST REASON FOR EXAM: Female, 51 years old. PREOP -- CT BEFORE, DIFFERENT V# FOR CT TECHNIQUE: PA and lateral views of the chest. COMPARISON: 05/13/2020 FINDINGS: The lungs are clear and expanded. Elevated right hemidiaphragm which is unchanged. Normal size heart. Normal mediastinum and victor manuel. Normal visualized pulmonary arteries. Normal visualized aortic arch and descending thoracic aorta. Normal visualized thoracic spine. Normal visualized ribs, clavicles, and shoulders. There is no demonstrated abnormality of the visualized soft tissue structures of the upper abdomen. RAD/Chest PA and Lateral IMPRESSION: No active disease. Electronically Signed: Kun Ventura MD at 15:19 EDT ,
[2021-09-13] VITALS (7 sets, daily range): BP systolic 113–122; BP diastolic 65–77; PULSE 85–95; RESP 16; TEMP 36.6–36.9; O2SAT 92–98; BMI 27.3
[2021-09-13] MEDS: Lactated Ringers 1,000 ML 15 ML IV (08:00)
--- NOTE | 2021-09-13 09:05 | RAD_ITS ---
EXAM: XR RIGHT ANKLE, 2 VIEWS CLINICAL INDICATION: FX TECHNIQUE: Frontal and lateral views of the right ankle. This report was created using [employer] report generation technology. COMPARISON: None. FINDINGS: BONES/JOINTS: Final image demonstrates normal alignment of the tibia and fibular fractures with slight widening of the mortise. OTHER FINDINGS: 11 fluoroscopically guided spot images were obtained. A total of 75 seconds of fluoroscopy time was utilized. Electronically Signed: Michael Padilla MD at 3:56 EDT , RAD/Ankle 2 Views IMPRESSION: undefined
[2021-09-13] MEDS: Cefazolin 2 GM in 0.9% Normal Saline 100 ML IV (09:26)
[2021-09-13] MEDS: Bupivacaine Mpf 0.5% 30 ML VIAL (12:30)
--- NOTE | 2021-09-13 16:32 | PCM.OPRPT ---
Report of Operation Date of Procedure: 09/13/21 Description of Surgical Findings:: Preoperative diagnosis: Right trimalleolar ankle fracture dislocation Postoperative diagnosis: Right trimalleolar ankle fracture dislocation with syndesmotic instability Procedure: 1. Open reduction internal fixation right trimalleolar ankle fracture dislocation 2. Open reduction internal fixation right ankle syndesmosis Surgeon: Mendoza Mooney DO Production Posting Clerk: Coni Leos PA-C Anesthesia: General endotracheal with regional blocks Anesthesiologist: Dr. Leone Complications: None Drains: None Estimated blood loss: 30 cc Urinary output: None recorded IV fluids: Per anesthesia record Specimens: None Surgical implants: Arthrex 6-hole 2.4 mm plate 10 hole 2.4 mm plate 7 hole one third tubular plate 6-hole reinforced 2.4 mm plate Arthrex tight rope Surgical indications: This is a 51-year-old female who sustained a fall getting up to go to the bathroom in the dark 09/07/2021. She was seen in the [facility] emergency department diagnosed with a trimalleolar ankle fracture dislocation of her right ankle. Closed reduction and splinting was performed by emergency room physician. She was admitted for possible placement and PT/OT. She was ultimately discharged home with nonweightbearing restrictions of the right lower extremity. I saw the patient in office 09/10/2021. Skin wrinkling had returned without fracture blisters noted. Argument we obtain a CT scan for preoperative planning. I also recommended surgical intervention in the form of right ankle trimalleolar ankle fracture dislocation open reduction internal fixation. I discussed the risks, benefits, terms the procedure. The risks include but are not limited to bleeding, infection, loss of life or limb, risk of anesthesia, risk of nerve block, persistent pain, nonunion, malunion, posttraumatic arthritis, instability, need for additional surgery, failure of orthopedic hardware, persistent limp or need for assistive device. Patient expressed understanding of these risks and wished to proceed. CT scan was reviewed preoperatively. Patient has a Haraguchi type II posterior malleolus fracture, consistent with a hyper plantarflexion variant which is similar to a pilon variant. There is a large posterior medial spike noted. I reviewed with the patient that this type of fracture has worse clinical outcomes than other trimalleolar variants. Description of procedure: Patient was seen in preoperative holding area. They were identified by name, medical record number, date of . The operative extremity was marked with a surgical marker. We confirmed informed consent with the patient and all questions were answered to her satisfaction. In the preoperative holding area, a popliteal block was administered by the anesthesia staff. At time of the procedure, patient was brought to the operative suite and positioned supine on a standard operating table. All bony prominences were well-padded. General anesthesia was administered. After adequate anesthesia, a well-padded pneumatic tourniquet was applied to the right upper thigh. A bump was placed in the patient's contralateral hip. The right lower extremity was elevated on bath blankets for fluoroscopic imaging and access to the limb during surgery. We secured this with tape as well as the nonoperative extremity. We then performed a timeout with all parties in attendance and agree with the side, site, operation to be performed. No concerns were voiced and elected to proceed. 2 g Ancef was administered prior to incision by the anesthesia staff. We then prepped and draped the operative extremity using a ChloraPrep. While stabilizing the ankle, the operative extremity was exsanguinated with an Esmarch bandage. Tourniquet was inflated to 250 mmHg. Tourniquet Remained up for approximately 70 minutes, was deflated for 50 minutes and reinflated for an additional 50 minutes. I first turned my attention to the posterior medial fragment. Incision was marked midportion of the posterior border the medial malleolus and the Achilles tendon. A 10 cm curvilinear incision was made in this interval sharply with a 15 blade scalpel. Subcutaneous tissue was sharply dissected down the level of the fascia. Neurovascular bundle was visualized deep to the fascia. I split the fascia just anterior to the neurovascular bundle. This identified the posterior tibialis tendon and flexor digitorum longus tendon. I bluntly dissected between the FDL and neurovascular bundle. Posterior medial portion of the tibia was identified as well as the fracture site. There is a large posterior medial shear fracture identified. This was sharply debrided from periosteum and hematoma. I then utilized a ball spike pusher and point reduction clamp to anatomically reduce the posterior medial fragment. Anatomic reduction was confirmed on fluoroscopy. I placed a 3.5 mm lag screw parallel with the joint joint surface from posterior to anterior. The head did depress into the posterior cortex. I remove the screw and place a washer. This was reinserted with excellent compression and fixation across the fracture site. I remove the reduction clamp. I turned my attention to the separate avulsion off the posterior malleolus from the posterior inferior tibiofibular ligament. This was reduced with a pointed reduction clamp. I placed a percutaneous K wire through the Achilles tendon to hold the reduction. I then selected a 2.4 mm straight 6-hole plate to act as a an antiglide plate. I placed a bicortical cortical screw at the apex of the fracture. Once the screw engaged the far cortex, this achieved excellent compression and stability of the avulsion fracture. I placed additional screws in the plate at this time for added stability. I then turned my attention back to the posterior medial fragment. I selected a 10 hole 2.4 mm plate utilized in similar fashion as a antiglide plate. This was placed in similar fashion with a cortical screw at the apex of the fracture which provided additional stability. Additional cortical screws were placed proximally and a locking screw was placed distal to the fracture site. Anatomic reduction of the posterior malleolus and tibial plafond was noted. Tourniquet was then deflated. I anesthetized the wound with a field block of 10 cc 0.5% bupivacaine. Tourniquet was deflated. Hemostasis was excellent at this point. There was good return of pulsatile nature of the neurovascular bundle without bleeding noted. I reviewed loosely reapproximated the fascia overlying the tendons and neurovascular bundle with interrupted [id number] 2-0 Vicryl suture. Dermis was reapproximated buried 2-0 Vicryl suture. Skin was finally reapproximated with simple 3-0 nylon suture. I then turned my attention the lateral malleolus. The bump under the patient's left hip was removed. We placed a bump under the patient's right hip to internally rotate the limb. Esmarch was then reapplied to the extremity and tourniquet was reinflated. Tourniquet was down for approximately 50 minutes in the interval. I planned a standard direct lateral approach to the fibula along the posterior border. Skin was sharply incised with a 15 blade scalpel through skin and subcutaneous tissue approximately 10 cm in length. The superficial peroneal nerve was not identified through dissection field. Identified the periosteum of the fibula. Fracture was identified. Periosteum was stripped approximately 3 mm proximal and distal to the fracture site. Fracture site was then debrided of hematoma. I placed a pointed reduction clamp across the fracture site. I placed a 3.5 mm lag screw across the fracture site with excellent compression. Clamp was removed. I then selected a 7 hole one third tubular plate to act as a antiglide plate along the posterior border of the fibula. A bicortical screw was placed at the apex of the fracture. When the screw engaged, excellent compression was noted fracture site. However, splintering was noted from the lag screw and there was significant loss of stability at this point. I attempted to place a lag screw through the plate distal to the fracture site, but significant comminution was suspected and fixation was unachievable at this time. I elected to then proceed with bridging the fracture site with comminution of cortical and locking screws proximal and distal to the fracture site. After placing the screws, there was still gross motion noted. I elected to place additional fixation along the lateral border of the fibula with a 2.4 mm reinforced plate. 2 cortical screws were placed both proximal and distal to the fracture site which significantly needed instability no motion was noted at the fracture site. I then brought in fluoroscopy to confirm the reduction. Anatomic religious of the ankle was noted. A cotton test and external rotation stress test revealed instability of the syndesmosis at this time. I proceeded with fixation of the syndesmosis. I placed a K wire in the interval between the 2 fibular plates across the syndesmosis parallel with the joint surface. I then drilled for a Arthrex tight rope. I drilled quad cortically across the syndesmosis. Drill and pin were removed. Tight rope was then placed per sales representative [employer] recommendations. Button was flipped along the medial tibial cortex. I sequentially tightened the tight rope with excellent compression across the syndesmosis. Repeat cotton test and external rotation stress revealed restored stability of the syndesmosis. 3 1/2 hitch knots were tied over top of the fibular button. This was sharply cut. Final fluoroscopy was obtained. Hardware appeared to be a optimal size and position. Fracture site appeared anatomically reduced. Tourniquet was deflated. Hemostasis was excellent. I thoroughly irrigated the wound with normal saline solution. I reapproximated fascia overlying the fibula and tight rope knot with a 2-0 Vicryl. Dermis was reapproximated buried 2-0 Vicryl suture. Skin was finally reapproximated with 3-0 nylon suture in interrupted fashion. Sterile compression dressing was then applied. There is good return of perfusion to the foot. Compartments are soft and compressible. A well-padded 3 sided AO splint was applied in maximal dorsiflexion. Patient tolerated procedure well without complication. She was safely extubated in the operative suite. She was transferred to PACU in stable condition. Need for skilled bilingual administrative assistant: Coni Leos PA-C was critical to the outcome of the case. During the course of the procedure the physician bilingual administrative assistant played a vital role. Her intimate knowledge of my steps in the procedure aided in safe and expedient completion of the procedure. The PA played a vital role in positioning particularly in obtaining the appropriate positioning. The PA was also vital in the retraction of soft tissues during the exposure and protecting vital structures. She was a critical role to the case during times of fracture reduction, hardware positioning and placement. She also assisted in expedient wound closure and splint application with myself. Post Operative Plan: Weightbearing: Nonweightbearing operative extremity Antibiotics: 2 g Ancef x 1 dose preoperatively DVT Prophylaxis: Aspirin 81 mg twice daily to start tomorrow Dressing: Maintain splint, keep it clean dry and intact until follow-up X-Rays: 2 weeks postop in the office Pain Medication: Oxycodone Rx provided in the office Follow-up: 2 weeks post-operatively with me in the office
--- NOTE | 2021-09-13 16:33 | DCINST_ITS ---
Discharge Instructions Follow Up Care Test Results: Test results from this visit will be discussed in further detail at your follow- up appointment, if applicable. Discharge Plan Admission Attending Provider: Mendoza Mooney Primary Care Provider: Alba Rubi Discharge Orders/Prescriptions Prescriptions: No Action multivitamin [Daily Multi-Vitamin] Tablet 1 tab PO DAILY levothyroxine 75 MCG tablet 75 mcg PO DAILY pramipexole 0.125 MG tablet 0.125 mg PO TID carbamazepine [Tegretol XR] 100 mg Tablet Extended Release 12 Hr 400 mg PO BID ondansetron HCl 4 mg Tablet 4 mg PO Q6H PRN (Reason: Nausea) dextroamphetamine-amphetamine [Adderall] 10 mg Tablet 10 mg PO 4X/DAY Rx Instructions: administer doses at least 4-6 hours apart famotidine 20 mg Tablet 20 mg PO QHS PRN (Reason: acid reflex) sodium oxybate 500 mg/mL Solution 3 g PO QHS Rx Instructions: administer the first dose at bedtime and the second dose 2.5-4 hours later--4 GRAMS armodafinil [Nuvigil] 250 mg Tablet 250 mg PO DAILY sodium oxybate 500 mg/mL Solution 4 g PO QHS Rx Instructions: 3 hrs after first 3.0 gram dose hydroxyzine HCl 10 mg Tablet 10 mg PO BID PRN (Reason: Anxiety) sennosides-docusate sodium [Stool Softener-Stimulant Laxat] 8.6-50 mg Tablet 2 tab PO BID 14 Days Qty: 56 0RF oxycodone 5 mg Tablet 5 mg PO Q4H PRN PRN (Reason: Pain Score 4-10) 3 Days Qty: 12 0RF fluoxetine 20 mg capsule 100 mg PO DAILY Referrals / Follow Up: Alba Rubi MD [Primary Care Provider] - Disposition Disposition (needs filled in before D/C Order can be placed): Home, Self Care
== END 2021-09-13 15:05 | disposition home or self-care (01) ==
LOC: SDC 07:48 → AC 07:49
PROVIDERS: PCP Internal Medicine; Referring Provider Student in an Organized Health Care Education/Training Program; Visit Provider Student in an Organized Health Care Education/Training Program
PROC: (CPT 27822; principal; 2021-09-13 09:15)
DX: S82.851A Displaced trimalleolar fracture of right lower leg, initial encounter for closed fracture (principal); F33.2 Major depressive disorder, recurrent severe without psychotic features; S93.439A Sprain of tibiofibular ligament of unspecified ankle, initial encounter; X50.1XXA Overexertion from prolonged static or awkward postures, initial encounter; Y93.01 Activity, walking, marching and hiking; Y92.009 Unspecified place in unspecified non-institutional (private) residence as the place of occurrence of the external cause; G47.419 Narcolepsy without cataplexy; E03.9 Hypothyroidism, unspecified; K21.9 Gastro-esophageal reflux disease without esophagitis; F41.1 Generalized anxiety disorder; Z79.890 Hormone replacement therapy; Z79.899 Other long term (current) drug therapy
CPT/HCPCS: 27822; 27829; 64445; 01480; 71046; 73600; 76000; C1713; J7120; J2405

== ENCOUNTER → 2021-11-19 | Outpatient (CLI) | payer OTHER, BC, SELFPAY ==
--- NOTE | 2021-11-19 16:11 | VDLE_ITS ---
Reason For Study: r/o DVT RIGHT GSV is normal. CFV is compressible, spontaneous, phasic, competent and demonstrates normal augmentation. FV is compressible, spontaneous, phasic, competent and demonstrates normal augmentation. POP V is compressible, spontaneous, phasic, competent and demonstrates normal augmentation. T/P Trunk is compressible. PTV is compressible. RT PerV is compressible. Procedure This is a venous duplex using B-mode, color flow and spectral Doppler. Exam performed in department. A preliminary report was called and/or faxed to Dr. Mooney. VL/Venous Duplex US, Unilateral Interpretation Summary Deep veins of the right lower extremity are patent and compressible segmentally . There is no evidence of right lower extremity deep vein thrombosis. The right great sapheno us vein appears patent and compressible segmentally. Ordering Physician: Mendoza Mooney Referring Physician: Alba Rubi Performed By: Lorraine Melvin, [place], RVT
== END | disposition home or self-care (01) ==
PROVIDERS: PCP Internal Medicine; Referring Provider Student in an Organized Health Care Education/Training Program; Visit Provider Student in an Organized Health Care Education/Training Program
DX: R22.41 Localized swelling, mass and lump, right lower limb (principal)
CPT/HCPCS: 93971

== ENCOUNTER 2022-06-10 18:40 | Emergency (ER) | payer OTHER, BC, SELFPAY ==
[2022-06-10] VITALS (10 sets, daily range): BP systolic 124–176; BP diastolic 71–85; PULSE 81–98; RESP 18; TEMP 36.4–36.6; O2SAT 94–99; BMI 27.0; BMI 34.7
--- NOTE | 2022-06-10 19:30 | RAD_ITS ---
STUDY: X-RAY - RIGHT TIBIA AND FIBULA REASON FOR EXAM: Female, 51 years old. All. Trauma. TECHNIQUE: AP and lateral view(s) of the tibia and fibula were obtained. COMPARISON: Ankle, June 10, 2022. FINDINGS: There is an oblique fracture of the distal tibial shaft. The distal fragment is angled medially and displaced posteriorly and laterally relationship to the proximal shaft. There is evidence of a plate and screws along the posterior medial aspect of the distal fracture fragment. There is a fracture of the distal fibular shaft. Again the fracture fragment is angled medially. A plate and screws is seen along the lateral aspect of the distal fracture fragment. The knee and ankle appear intact. The soft tissue structures are unremarkable. RAD/Tibia & Fibula 2 Views IMPRESSION: 1. Displaced fractures of the distal tibia and fibula. Electronically Signed: Frank Silverio DO at 20:24 EDT ,
--- NOTE | 2022-06-10 19:32 | EDS_ITS ---
HPI History of Present Illness Chief Complaint: Lower Extremity Injury Informant: patient, spouse/S.O. and family Narrative Narrative: Patient hurt her right ankle shortly before arrival. She stepped off the edge of a step rolling her foot forward and falling. She denies hurting anything other than her right lower extremity. She just fractured this and had surgery for trimalleolar fracture in August of this year with Dr. Mooney. She denies hitting her head or any other injury. She denies being on any blood thinners. [facility] Medical History Arthritis Elevated ferritin Elevated LDL cholesterol level Gastric reflux Generalized anxiety disorder History of edema Hyperprolactinemia Hypothyroidism Leg cramps Lumbago Major depressive disorder, recurrent severe without psychotic features Narcolepsy Non-smoker Restless leg syndrome SARS-CoV-2 positive Shortness of breath on exertion Uses wheelchair Wears glasses Home Medications levothyroxine 75 mcg tablet 75 mcg PO DAILY 05/13/20 [History Last Taken Unknown] pramipexole 0.125 mg tablet 0.125 mg PO TID 05/13/20 [History Last Taken Unknown] multivitamin (Daily Multi-Vitamin tablet) 1 tab PO DAILY 11/19/20 [History Last Taken Unknown] armodafinil 250 mg tablet (Nuvigil) 250 mg PO DAILY 09/07/21 [History Last Taken Unknown] carbamazepine 100 mg tablet,extended release,12 hr (Tegretol XR) 400 mg PO BID 09/07/21 [History Last Taken Unknown] dextroamphetamine-amphetamine 10 mg tablet (Adderall) 10 mg PO 4X/DAY 09/07/21 [History Last Taken Unknown] famotidine 20 mg tablet 20 mg PO QHS PRN acid reflex 09/07/21 [History Last Taken Unknown] hydroxyzine HCl 10 mg tablet 10 mg PO BID PRN Anxiety 09/07/21 [History Last Taken Unknown] ondansetron HCl 4 mg tablet 4 mg PO Q6H PRN Nausea 09/07/21 [History Last Taken 09/06/21 22:00] sodium oxybate 500 mg/mL oral solution 3 g PO QHS 09/07/21 [History Last Taken Unknown] sodium oxybate 500 mg/mL oral solution 4 g PO QHS SLEEP 06/17/22 [History Last Taken Unknown] oxycodone 5 mg tablet 5 mg PO Q4H PRN PRN Pain Score 4-10 3 days #12 tabs 09/09/21 [Rx Last Taken Unknown] sennosides 8.6 mg-docusate sodium 50 mg tablet (Stool Softener-Stimulant Laxative) 2 tab PO BID 2 weeks #56 tabs 09/09/21 [Rx Last Taken Unknown] fluoxetine 20 mg capsule 100 mg PO DAILY 09/11/21 [History Last Taken Unknown] Allergy/AdvReac Type Severity Reaction Status Date / Time No Known Allergies Allergy Verified 06/10/22 18:41 Surgical History History of hysteroscopy Social History Smoking Status: Never smoker ROS ROS ED Constitutional Constitutional ED: Denies chills or fever(s) Eyes Eyes: Denies change in vision Cardiovascular Cardiovascular: Denies chest pain or palpitations Respiratory/Chest Respiratory/Chest: Denies cough or dyspnea Gastrointestinal Gastrointestinal: Reports nausea; Denies abdominal pain or vomiting Musculoskeletal Musculoskeletal: Reports other Details: Right lower leg pain as in history of present illness. ; Denies back pain Integumentary Denies rash Neurologic Neurologic: Reports other Details: Patient states she can still feel her toes ; Denies paresthesias or weakness Psychiatric Psychiatric: Reports anxiety Hematologic/Lymphatic Hematologic/Lymphatic: Denies easy bleeding or easy bruising Allergic/Immunologic Allergic/Immunologic ED: Denies urticaria EXAM Physical Exam Narrative Exam Narrative: Patient is awake alert. She is laying in bed. She does look uncomfortable. She cannot tell me the story appropriately. HEENT shows no head or facial trauma or tenderness Neck shows no pain with motion or palpation Lungs are clear. Saturations are normal at 98 to 99% on room air showing no hypoxia. No chest wall tenderness or clavicular tenderness is noted. Heart is regular. Rate about 90-100. I hear no murmur. Abdomen soft nontender. Back shows no tenderness along cervical thoracic or lumbar spine. Extremities show no pelvis or upper extremity tenderness. No left lower extremity tenderness. No tenderness near the hips. She has obvious deformity at the mid/distal third junction of the tib-fib on the right. Distal color is still intact. She can feel me touch each toes but she gets very nervous worried about pain with palpation. There is no break in the skin in this area. Neurologically she is awake alert and appropriate. Const Vital Signs: 06/10/22 18:41 06/10/22 19:18 06/10/22 21:55 Temperature 97.5 F L Temperature Source Temporal Pulse Rate 91 98 Pulse Rate [1 (Initial Baseline)] Respiratory Rate 18 18 Respiratory Rate [1 (Initial Baseline)] Blood Pressure 148/71 H 132/79 H Blood Pressure [1 (Initial Baseline)] Blood Pressure Mean 96 96 Pulse Ox 98 99 94 Oxygen Delivery Method Room Air Room Air Nasal Cannula Oxygen Delivery Method [1 (Initial Baseline)] Oxygen Flow Rate (L/min) 2 Oxygen Flow Rate (L/min) [1 (Initial Baseline)] 06/10/22 22:28 Temperature Temperature Source Pulse Rate Pulse Rate [1 (Initial Baseline)] 97 Respiratory Rate Respiratory Rate [1 (Initial Baseline)] 181 H Blood Pressure Blood Pressure [1 (Initial Baseline)] 129/76 H Blood Pressure Mean Pulse Ox Oxygen Delivery Method Oxygen Delivery Method [1 (Initial Baseline)] Nasal Cannula Oxygen Flow Rate (L/min) Oxygen Flow Rate (L/min) [1 (Initial Baseline)] 2 MDM MDM MDM Narrative Medical decision making narrative: My independent interpretation of her 2 view ankle and 3 view tib-fib on the right do show a tib-fib fracture just above the plates that were prior st abilization of her fracture in August. Blood work showed mild elevation white count which could be stress demargination. Electrolytes show no marked abnormalities. Glucose was minimally up at 123. I discussed myrtle the case with Dr. Pierce on-call for orthopedics. He discussed the case then with the patient's original surgeon, Dr. Mooney. They feel that this is a more complex injury that might need more trauma surgery work. For this reason they recommended transfer to a center with capability of more complex orthopedic trauma. I explained this to the patient and and family. I called [facility]. I discussed case with Dr. Dez Brown on for orthopedics who will accept the patient in transfer. I explained this again to the family. Procedure: Procedural sedation and splint application right lower extremity: We did want to get this leg in a splint. I discussed risk benefits with them. We did choose sedation. No history of complications with anesthesia. Last meal was about 8 to 9 hours prior. Mallampati of 2. Lungs clear. We did a total of 45 mg of propofol IV with excellent sedation. We had some options of splinting. Because the next orthopedic surgeons at here are probably going to want to look at her entire leg, I placed this leg in a preformed walking boot. This allows it to be opened up in front into see the majority of the leg. If I had placed this in fiberglass or plaster this would have limited access to the leg. We were able to straighten this somewhat. However, when I pulled straight any relaxation allowed this leg to then been. But in the splint it seemed to hold well. I think this is the best stabilization that also allows observation. After the procedure was done she had good ability to wiggle toes. Her sensation was good. Her capillary refill was excellent. Patient woke up fine and had no troubles with the procedure. She was asking when her ambulance will arrive to take her to the next hospital. Lab Data Attestation: I reviewed the patient's lab results. Labs: Laboratory Results - last 24 hr 06/10/22 06/10/22 19:59 19:59 WBC 12.4 H RBC 4.83 Hgb 13.4 Hct 43.0 MCV 89.0 MCH 27.7 MCHC 31.2 L RDW Std Deviation 43.0 RDW Coeff of Rayne 13.2 Plt Count 422 MPV 10.1 Immature Gran % (Auto) 0.600 Neut % (Auto) 53.7 Lymph % (Auto) 32.3 [place] % (Auto) 8.1 Eos % (Auto) 3.9 Baso % (Auto) 1.4 H Absolute Neuts (auto) 6.6 Absolute Lymphs (auto) 4.00 Nucleated RBC % 0 Sodium 142 Potassium 4.0 Chloride 112 H Carbon Dioxide 20.0 L Anion Gap 10 BUN 19 H Creatinine 0.93 Estim Creat Clear Calc 52.79 Est GFR (MDRD) Af Amer 81 Est GFR (MDRD) Non-Af 67 BUN/Creatinine Ratio 20.5 H Glucose 123 H Calcium 10.0 Radiography Diagnostic Testing: Clinical Impression(s) from Imaging Studies Tibia/Fibula X-Ray 06/10/22 19:30 IMPRESSION: 1. Displaced fractures of the distal tibia and fibula. Electronically Signed: Frank Silverio DO at 20:24 EDT Reading Location ID and State: [facility] / [place] Tel [phone], Service support , Ankle X-Ray 06/10/22 19:55 IMPRESSION: Fractures of the distal tibia and fibula. Electronically Signed: Frank Silverio DO at 20:26 EDT Reading Location ID and State: [address] [place] [address] Tel [phone], Service support , Discharge Plan Triage Chief Complaint: Lower Extremity Injury ED Provider: Manuel Singh Dx/Rx/DC Orders Clinical Impression: Closed fracture of right tibia and fibula, Fall on steps Prescriptions: No Action multivitamin [Daily Multi-Vitamin] Tablet 1 tab PO DAILY levothyroxine 75 MCG tablet 75 mcg PO DAILY pramipexole 0.125 MG tablet 0.125 mg PO TID carbamazepine [Tegretol XR] 100 mg Tablet Extended Release 12 Hr 400 mg PO BID ondansetron HCl 4 mg Tablet 4 mg PO Q6H PRN (Reason: Nausea) dextroamphetamine-amphetamine [Adderall] 10 mg Tablet 10 mg PO 4X/DAY Rx Instructions: administer doses at least 4-6 hours apart famotidine 20 mg Tablet 20 mg PO QHS PRN (Reason: acid reflex) sodium oxybate 500 mg/mL Solution 3 g PO QHS Rx Instructions: administer the first dose at bedtime and the second dose 2.5-4 hours later--4 GRAMS armodafinil [Nuvigil] 250 mg Tablet 250 mg PO DAILY sodium oxybate 500 mg/mL Solution 4 g PO QHS Rx Instructions: 3 hrs after first 3.0 gram dose hydroxyzine HCl 10 mg Tablet 10 mg PO BID PRN (Reason: Anxiety) sennosides-docusate sodium [Stool Softener-Stimulant Laxat] 8.6-50 mg Tablet 2 tab PO BID 14 Days Qty: 56 0RF oxycodone 5 mg Tablet 5 mg PO Q4H PRN PRN (Reason: Pain Score 4-10) 3 Days Qty: 12 0RF fluoxetine 20 mg capsule 100 mg PO DAILY Primary Care Provider: Alba Rubi Referrals: Alba Rubi MD [Primary Care Provider] - Disposition Disposition: Acute Care Hospital Discharge Location: [facility]
[2022-06-10] MEDS: Morphine 4 MG/ML Syringe IV (19:46)
[2022-06-10] MEDS: Ondansetron 4 MG/2 ML Vial IV (19:46)
--- NOTE | 2022-06-10 19:55 | RAD_ITS ---
STUDY: X-RAY - RIGHT ANKLE REASON FOR EXAM: Female, 51 years old. Trauma. TECHNIQUE: 2 view(s) of the ankle. COMPARISON: Tibia and fibula, June 10, 2021. Right ankle, September 13, 2021. FINDINGS: There is a fracture of the distal tibial shaft. The plate and screws which were placed at the time of the prior study are seen along the medial and posterior aspect of the distal fracture fragment. The distal fracture fragment appears angled medially and displaced posteriorly and cephalad to the shaft. There is also a fracture of the distal fibula which is angulated medially. This also contains plates and screws which were placed at the time of the previous study. Normal medial and lateral malleoli. Normal tibiotalar articulation and ankle mortise. Normal visualized talus and calcaneus. The visualized subtalar, talonavicular, calcaneocuboid and tarsal articulations are normal. The soft tissue structures are unremarkable. RAD/Ankle 2 Views IMPRESSION: Fractures of the distal tibia and fibula. Electronically Signed: Frank Silverio DO at 20:26 EDT ,
[2022-06-10 20:12] LABS: Absolute Neutrophil Count 6.6 X10^3/uL (2.0-7.7); Basophil# 0.17 X10^3/uL; Basophil% 1.4 % (0-1); Eosinophil# 0.48 X10^3/uL; Eosinophils% 3.9 % (0-5); Hemoglobin 13.4 g/dL (12.0-15.0); Lymphocyte % 32.3 % (19-41); Mean Corp Hgb Conc 31.2 g/dL (32-36); Mean Corpuscular Hgb 27.7 pg (27.0-32.0); Mean Platelet Vol. 10.1 fl (6.2-12.0); Monocyte% 8.1 % (0-10); NRBC Flagged by Analyzer 0 % (0-5); Neutrophil # 6.64 X10^3/uL (2.7-7.7); Neutrophil % 53.7 % (47-70); Platelet Count 422 K/mm3 (150-450); RBC Distribution Width CV 13.2 % (11.6-14.6); Red Blood Count 4.83 M/mm3 (4.2-5.4); White Blood Count 12.4 K/mm3 (4.4-11.0)
[2022-06-10 20:25] LABS: Anion Gap 10 (5-15); BUN 19 mg/dL (7-18); BUN/Creat Ratio 20.5 RATIO (10-20); Chloride 112 mmol/L (98-107); Creatinine, Serum 0.93 mg/dL (0.55-1.02); EST Glomerular Filtration Rate 67 mL/min (>60); Est Glom Filt Rate - Afr Amer 81 mL/min (>60); Estimated Creatinine Clearance 52.79 ml/min; Glucose 123 mg/dL (74-106); Sodium Level 142 mmol/L (136-145)
[2022-06-10] MEDS: HYDROmorphone 0.5 MG/0.5 ML SYRINGE IV ×3 (20:47→23:27)
[2022-06-10] MEDS: Propofol 200 MG/20 ML Vial 40 MG IV BOLUS (20:50)
== END 2022-06-10 23:48 | disposition short-term general hospital (02) ==
PROVIDERS: Emergency Provider Emergency Medicine; PCP Internal Medicine; Visit Provider Emergency Medicine
DX: S82.301A Unspecified fracture of lower end of right tibia, initial encounter for closed fracture (principal); S82.831A Other fracture of upper and lower end of right fibula, initial encounter for closed fracture; W10.9XXA Fall (on) (from) unspecified stairs and steps, initial encounter
CPT/HCPCS: 29515; 73590; 73600; 80048; 85025; 96374; 96375; 96376; 99285; A4216; J2405

== ENCOUNTER → 2022-08-01 | Outpatient (CLI) | payer OTHER, BC, SELFPAY | END | disposition home or self-care (01) | LOC: SL 20:11 | PROVIDERS: PCP Internal Medicine; Referring Provider Psychiatry & Neurology Sleep Medicine; Visit Provider Psychiatry & Neurology Sleep Medicine | DX: G47.10 Hypersomnia, unspecified (principal); G47.8 Other sleep disorders; R06.83 Snoring; G47.00 Insomnia, unspecified | CPT/HCPCS: 95810 ==

== ENCOUNTER → 2022-12-30 | Outpatient (CLI) | payer OTHER, BC, SELFPAY | END | disposition home or self-care (01) | LOC: LABSPEC 17:13 | PROVIDERS: PCP Internal Medicine; Referring Provider Otolaryngology Otolaryngology/Facial Plastic Surgery; Visit Provider Otolaryngology Otolaryngology/Facial Plastic Surgery | DX: J32.9 Chronic sinusitis, unspecified (principal) | CPT/HCPCS: 87070; 87077; 87205 ==

== ENCOUNTER → 2023-06-04 | Outpatient (CLI) | payer BC, SELFPAY ==
--- NOTE | 2023-06-04 11:53 | BI_ITS ---
MAMMOGRAPHY - BILATERAL SCREENING REASON FOR EXAM: Female, 52 years old. Routine annual screening examination. PERTINENT HISTORY: Non-contributory. TECHNIQUE: Digital bilateral breast mariano (3D mammographic acquisition) in the CC and MLO projections. 2-D mediolateral oblique (MLO) and craniocaudad (CC) views of both breasts were obtained. CAD: Full Field Digital Mammography with Computer Added Detection was performed. COMPARISON: Comparison is made with prior outside examination of December 13, 2020. FINDINGS: Breast Composition: There are scattered areas of fibroglandular density. There are no dominant masses or suspicious calcifications. No other significant abnormalities are identified. There has been no significant change since the prior study. BI/SCRN MAMM (CAD)W/MARIANO BILAT IMPRESSION: Stable bilateral screening mammogram. Yearly follow-up mammogram recommended. (A) ASSESSMENT CATEGORY: BIRADS Category 1: Negative. A letter regarding these results will be sent to the patient by the facility within 30 days. Approximately 10% of breast cancers are not detected by mammography. A normal mammogram should not delay biopsy of a clinically suspicious abnormality. [id number] Electronically Signed: Maxwell Bautista MD at 13:14 EDT ,
--- NOTE | 2023-06-04 11:53 | BD_ITS ---
STUDY: DUAL ENERGY X-RAY ABSORPTIOMETRY / DXA REASON FOR EXAM: Female, 52 years old. [id number] TECHNIQUE: Bone Mineral Density (BMD) measurements of lumbar spine and bilateral hips were obtained. COMPARISON: None. FINDINGS: Lumbar Spine (L1-L4): g/cm2 (0.887) / T-score (-1.5) / Z-score (-0.4) Findings are suggestive of osteopenia with a low fracture risk. Left Femur Total: g/cm2 (0.917) / T-score (-0.2) / Z-score (0.5) Left Femoral Neck: g/cm2 (0.599) / T-score (-2.3) / Z-score (-1.2) Right Femur Total: g/cm2 (0.875) / T-score (-0.5) / Z-score (0.1) Right Femoral Neck: g/cm2 (0.549) / T-score (-2.7) / Z-score (-1.7) BD/Dexa Bone Density Study IMPRESSION: The patient is considered osteoporotic as outlined below according to World Lamin Organization (WHO) criteria with a high fracture risk. Reference Information: The T-score is the number of standard deviations above or below the standard which is normal for young adults at their peak bone mineral density. The World Health Organization (WHO) interprets the T-scores as follows: Above -1 Normal bone density Between -1 and -2.5 Osteopenia Equal to / or below -2.5 Osteoporosis As a practical clinical guideline, osteopenia may be graded as follows: Mild -1 through -1.5 Moderate -1.6 through -2.0 Severe -2.1 through -2.4 The Z-score is the number of standard deviations above or below age-matched controls. A Z-score of less than -1.5 would be considered abnormal. References: 1. NIH Osteoporosis and Related Bone Diseases www osteo.org 2. International Society for Clinical Densitometry www iscd.org 3. National Osteoporosis Foundation www nof.org Electronically Signed: Maxwell Bautista MD at 9:15 EDT ,
== END | disposition home or self-care (01) ==
PROVIDERS: PCP Internal Medicine; Referring Provider Internal Medicine; Visit Provider Internal Medicine
DX: Z12.31 Encounter for screening mammogram for malignant neoplasm of breast (principal); Z78.0 Asymptomatic menopausal state
CPT/HCPCS: 77063; 77067; 77080

== ENCOUNTER → 2023-08-14 | Outpatient (CLI) | payer BC, SELFPAY | END | disposition home or self-care (01) | PROVIDERS: PCP Internal Medicine | DX: G47.33 Obstructive sleep apnea (adult) (pediatric) (principal); Z78.9 Other specified health status | CPT/HCPCS: 95811 ==

== ENCOUNTER → 2024-06-23 | Outpatient (CLI) | payer BC, SELFPAY ==
--- NOTE | 2024-06-23 14:03 | NEURO ---
NCS and/or EMG Patient Report Ordering Doctor: Erica Jacobson DATE OF SERVICE: 06/23/24 Mila presents with complaints of numbness and tingling in both hands, worse on the right side. She reports right upper extremity weakness. Electrodiagnostic findings: Right median motor nerve demonstrates prolonged latency with normal amplitude and conduction velocity. Left median motor nerve demonstrates prolonged latency with normal amplitude and reduced conduction velocity. Right ulnar motor nerve demonstrates normal distal latency and amplitude with a significant drop in conduction across the elbow of approximately 60%. Left ulnar motor response is within normal limits. Normal median and ulnar F?waves. Prolonged median sensory latency at the wrist bilaterally. Needle EMG testing was performed in the upper limbs. 1+ fibrillations noted in the right lower cervical paraspinals, right triceps and right flexor carpi ulnaris. Motor unit action potentials with normal amplitude and duration. Electrodiagnostic pression: This is an abnormal study of the upper limbs 1. Electrodiagnostic findings suggestive of bilateral median mononeuropathy. This is consistent with a mild bilateral carpal tunnel syndrome. 2. Electrodiagnostic evidence suggestive of right-sided ulnar neuropathy. This is considered consistent with an advanced right cubital tunnel syndrome 3. Electrodiagnostic evidence suggestive of acute right C7 radiculopathy. Consider clinical correlation with cervical spine imaging. Multi Select Codes Neurology Neurology Interp Codes: 34143-92 Musc test done w/n test comp (interp) (2) and 29495-80 Nrv cndj test 11-12 studies (interp)
== END | disposition home or self-care (01) ==
LOC: PSN 12:26
PROVIDERS: PCP Internal Medicine; Referring Provider Internal Medicine; Visit Provider Internal Medicine
DX: R20.2 Paresthesia of skin (principal)
CPT/HCPCS: 95886; 95913

== ENCOUNTER → 2024-09-13 | Outpatient (CLI) | payer BC, SELFPAY ==
--- NOTE | 2024-09-13 16:34 | MRI_ITS ---
PROCEDURE: SPINE CERVICAL (ROUTINE) 09/13/2024 REASON FOR EXAM: MRI CERVICAL SPINE; CERVICAL RADICULOPATHY, PRIOR CERVICAL SURGER TECHNIQUE: SPINE CERVICAL (ROUTINE) Multiplanar and multisequence images were obtained without IV contrast administration. COMPARISON: none FINDINGS: Straightening of cervical spine curve denoting muscle spasm. Preserved vertebral bodies height. No vertebral fractures or dislocation. Normal craniometric measures of the craniovertebral junction Multilevel anterior marginal osteophytic lipping of the examined vertebral end plates. Variable degrees of reduced bright T2 signal of the intervertebral discs. No obvious marrow degenerative signal. Modio 0. C1-C2: Atlantodens interval is preserved. Odontoid process and atlantoaxial joint appear normal. Mild atlanto-axial degenerative changes. C2-C3: There is no significant disc pathology. Normal morphology of the ligamentum flava. No arthropathy of the uncovertebral joints. No significant spinal canal stenosis noted. C3-C4: a 2.5 mm diffuse disc bulge with central focal posterior disc protrusion along with bilateral uncovertberal arthropathy indenting the theca encroaching upon the related neural exit foramina inducing moderate to marked exiting nerve roots compression. C4-C5: a 1.5 mm diffuse disc bulge indenting the theca encroaching upon the related neural exit foramina inducing mild exiting nerve roots compression. C5-C6: a 2.2 mm diffuse disc bulge with left foraminal disc protrusion along with bilateral uncovertberal arthropathy indenting the theca encroaching upon the related neural exit foramina inducing moderate right and marked left exiting nerve roots compression. C6-C7: a 1.8 mm diffuse disc bulge inclined to the left side indenting the theca encroaching upon the related neural exit foramina inducing mild to moderate exiting nerve roots compression. C7-T1: There is no significant disc pathology. Normal morphology of the ligamentum flava. No arthropathy of the uncovertebral joints. No significant spinal canal stenosis noted. Normal appearance of the examined cervical cord and cranio-cervical junction. No marrow infiltrative lesions. No paraspinal soft tissue masses. MRI/Spine Cervical (Routine) IMPRESSION: Straightening of cervical curve denoting myospasm. Mild cervical spondylodegenerative changes with multilevel disc changes along w ith uncovertberal arthropathy inducing neural foraminal compromise as detailed. [facility]
== END | disposition home or self-care (01) ==
LOC: MRI 16:27
PROVIDERS: PCP Internal Medicine; Referring Provider Internal Medicine; Visit Provider Internal Medicine
DX: G54.2 Cervical root disorders, not elsewhere classified (principal)
CPT/HCPCS: 72141

== ENCOUNTER → 2024-12-24 | Outpatient (CLI) | payer BC, SELFPAY ==
--- NOTE | 2024-12-24 13:30 | BI_ITS ---
EXAM: SCRN MAMM (CAD)W/MARIANO BILAT DATE: 12/24/2024 CLINICAL HISTORY: F, Age 54 y/o , SCRN MAMM (CAD)W/MARIANO BILAT TECHNIQUE: Procedure Code: [id number] Modality: MG Procedure: SCRN MAMM (CAD)W/MARIANO BILAT COMPARISON: Prior exam(s) dated 06/04/2023. FINDINGS: TISSUE DENSITY: There are scattered areas of fibroglandular density. Bilateral Breast Mammographic Findings: No significant masses, calcifications or other abnormalities are identified. BI/SCRN MAMM (CAD)W/MARIANO BILAT IMPRESSION: There is no mammographic evidence of malignancy. OVERALL FINAL ASSESSMENT BI-RADS 1: NEGATIVE. RECOMMENDATION: Routine annual follow-up in 1 Year Additional Recommendation none A letter with findings and recommendations will be mailed to the patient. Reading Location: [id number]
--- NOTE | 2024-12-24 13:30 | BI_ITS ---
EXAM: SCRN MAMM (CAD)W/MARIANO BILAT DATE: 12/24/2024 CLINICAL HISTORY: F, Age 54 y/o , SCRN MAMM (CAD)W/MARIANO BILAT TECHNIQUE: Procedure Code: [id number] Modality: MG Procedure: SCRN MAMM (CAD)W/MARIANO BILAT COMPARISON: Prior exam(s) dated 06/04/2023. FINDINGS: TISSUE DENSITY: There are scattered areas of fibroglandular density. Bilateral Breast Mammographic Findings: No significant masses, calcifications or other abnormalities are identified. BI/SCRN MAMM (CAD)W/MARIANO BILAT IMPRESSION: There is no mammographic evidence of malignancy. OVERALL FINAL ASSESSMENT BI-RADS 1: NEGATIVE. RECOMMENDATION: Routine annual follow-up in 1 Year Additional Recommendation none A letter with findings and recommendations will be mailed to the patient. Reading Location: [id number]
== END | disposition home or self-care (01) ==
LOC: OPBI 13:27
PROVIDERS: PCP Internal Medicine; Referring Provider Internal Medicine; Visit Provider Internal Medicine
DX: Z12.31 Encounter for screening mammogram for malignant neoplasm of breast (principal)
CPT/HCPCS: 77063; 77067

== ENCOUNTER → 2025-01-21 | Outpatient (CLI) | payer BC, SELFPAY ==
[2025-01-21 15:36] LABS: Calcium 10.0 mg/dL (7.6-11.0)
[2025-01-24 08:08] LABS: ANTINUCLEAR ANTIBODIES DIRECT Negative (Negative)
== END | disposition home or self-care (01) ==
LOC: LAB 14:16
PROVIDERS: PCP Internal Medicine; Referring Provider Internal Medicine; Visit Provider Internal Medicine
DX: E83.52 Hypercalcemia (principal); D72.10 Eosinophilia, unspecified
CPT/HCPCS: 36415; 82310; 86038

== ENCOUNTER → 2025-01-28 | Outpatient (CLI) | payer BC, SELFPAY | END | disposition home or self-care (01) | LOC: LAB 15:56 | PROVIDERS: PCP Internal Medicine; Referring Provider Internal Medicine; Visit Provider Internal Medicine | DX: D72.10 Eosinophilia, unspecified (principal) | CPT/HCPCS: 87177; 87209; 87329 ==